=== PATIENT | female | born 1950 | race American Indian/Alaskan Native ===

== ENCOUNTER 2017-08-21 20:33 | Observation (INO) | payer MEDICAID, MEDICARE ==
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
[2017-08-22 06:15] VITALS: BP 149/85; PULSE 81; RESP 20; TEMP 97.8
[2017-08-22 06:38] VITALS: O2SAT 97
== END 2017-08-22 05:42 | disposition home or self-care (01) ==
LOC: C.ER 20:33 → C.9OBSV 22:53
PROVIDERS: ADMIT Student in an Organized Health Care Education/Training Program; ATTEND Student in an Organized Health Care Education/Training Program
DX: F10.10 Alcohol abuse, uncomplicated (principal); F17.210 Nicotine dependence, cigarettes, uncomplicated; Y09 Assault by unspecified means
CPT/HCPCS: 70450; 99285; G0378

== ENCOUNTER 2018-01-03 17:37 | Emergency (ER) | payer MEDICAID ==
[2018-01-03 19:18] VITALS: TEMP 97.8
[2018-01-03] MEDS ORDERED: Sodium Chloride 0.9% 1,000 ML IV ONE (21:44)
[2018-01-03 22:39] LABS: BASO # 0.1 K/uL (0.0-0.2); EOS # 0.1 K/uL (0.0-0.7); EOS % 1.3 % (0.0-4.0); HEMOGLOBIN 14.2 g/dL (11.0-16.0); LYMPH # 2.9 K/uL (1.0-4.3); LYMPH % 41.3 % (20.0-40.0); MEAN CELL VOLUME 97.3 fL (81.0-99.0); MEAN CORPUSCULAR HEMOGLOBIN 32.6 pg (27.0-31.0); MEAN CORPUSCULAR HGB CONC 33.5 g/dL (33.0-37.0); MEAN PLATELET VOLUME 9.3 fL (7.2-11.7); MONO # 0.6 K/uL (0.0-0.8); MONO % 8.5 % (0.0-10.0); NEUT # 3.3 K/uL (1.8-7.0); NEUT % 47.9 % (50.0-75.0); NRBC % 0.1 % (0.0-2.0); RBC 4.36 Mil/uL (3.80-5.20); RED CELL DISTRIBUTION WIDTH 12.4 % (11.5-14.5)
[2018-01-03 22:51] LABS: ALB/GLOB RATIO 0.9 (1.0-2.1); ALBUMIN 3.9 g/dL (3.5-5.0); ALT/SGPT 50 U/L (9-52); AST/SGOT 52 U/L (14-36); BLOOD UREA NITROGEN 16 mg/dL (7-17); CALCIUM 9.7 mg/dl (8.6-10.4); GFR AFRICAN-AMERICAN > 60; GFR NON-AFRICAN AMERICAN > 60; MAGNESIUM 1.8 mg/dL (1.6-2.3)
--- NOTE | 2018-01-04 00:24 | C.PDOC ---
Time Seen by Provider: 01/03/18 21:08 Chief Complaint (Nursing): Medical Clearance History Per: Patient Onset/Duration Of Symptoms: Days Current Symptoms Are (Timing): Still Present Severity: Moderate Context: Recently diagnosed with influenza Location: Generalized Quality: Malaise/bodyache Reports Recently: Treated By A Physician, Hospitalized Additional History Per: Prior Records Past Medical History Reviewed: Historical Data, Nursing Documentation, Vital Signs Vital Signs: Last Vital Signs Temp 97.8 F 01/03/18 19:14 Pulse 90 01/03/18 19:14 Resp 18 01/03/18 19:14 BP 139/96 H 01/03/18 19:14 Pulse Ox 96 01/03/18 19:14 - Medical History PMH: HTN Family History: States: Unknown Family Hx - Social History Hx Tobacco Use: Yes (Light smoker <10 cigarettes daily) Hx Alcohol Use: Yes Hx Substance Use: No - Immunization History Hx Tetanus Toxoid Vaccination: No Hx Influenza Vaccination: No Hx Pneumococcal Vaccination: No Review Of Systems Except As Marked, All Systems Reviewed And Found Negative. Constitutional: Positive for: Malaise. Negative for: Fever Cardiovascular: Negative for: Chest Pain Respiratory: Negative for: Cough, Shortness of Breath, Hemoptysis Gastrointestinal: Negative for: Vomiting, Abdominal Pain, Diarrhea Genitourinary: Negative for: Dysuria Musculoskeletal: Negative for: Neck Pain Skin: Negative for: Rash Neurological: Negative for: Weakness, Numbness, Seizures, Altered Mental Status Physical Exam - Physical Exam Appears: Non-toxic, No Acute Distress Skin: Normal Color, Warm, Dry, No Rash Head: Atraumatic, Normacephalic Eye(s): bilateral: PERRL, EOMI Oral Mucosa: Moist Neck: Normal ROM, Supple Cardiovascular: Rhythm Regular Respiratory: Normal Breath Sounds, No Accessory Muscle Use Gastrointestinal/Abdominal: Soft, No Tenderness Extremity: Normal ROM, No Pedal Edema, No Calf Tenderness Neurological/Psych: Oriented x3, Normal Motor, Normal Sensation ED Course And Treatment - Laboratory Results Result Diagrams: 01/03/18 22:34 01/03/18 22:34 O2 Sat by Pulse Oximetry: 96 Pulse Ox Interpretation: Normal Progress - Interventions Interventions:: Observation, Intravenous fluid - Medications Administered Intravenous: NSAID - Data Reviewed Data Reviewed: Lab, Old records - Patient Status Patient status: Mostly improved - Continuity of Care Discussed patient case with:: Patient, ED Nurse - Patient Plan Patient Plan: Discharge, F/U with PCP, Continue present meds Disposition Counseled Patient/Family Regarding: Studies Performed, Diagnosis, Need For Followup, Smoking Cessation - Disposition Referrals: Milton Aranda MD [Primary Care Provider] - Disposition: HOME/ ROUTINE Disposition Time: 00:25 Condition: IMPROVED Additional Instructions: Follow up with your doctor this week. Return to the ER if you develop high fever , shortness of breath, worsening of symptoms or if you have any other concerns. Forms: [facility] (French), General Discharge Instructions - Clinical Impression Clinical Impression: Body aches
[2018-01-04 02:18] VITALS: BP 127/63; PULSE 78; RESP 20; O2SAT 100
== END 2018-01-04 01:25 | disposition home or self-care (01) ==
LOC: C.ER 17:37 → SUPCPDRO 17:37 → C.ER 01-04 01:25
DX: R52 Pain, unspecified (principal)
CPT/HCPCS: 80053; 80320; 83735; 85025; 96361; 96374; 99282; J1885; J7040

== ENCOUNTER 2018-01-08 09:57 | Emergency (ER) | payer MEDICAID ==
[2018-01-08 10:10] VITALS: RESP 18
[2018-01-08] MEDS ORDERED: Sodium Chloride 0.9% 1,000 ML IV ONE (10:28)
--- NOTE | 2018-01-08 10:46 | C.PDOC ---
History Of Present Illness 67 year old female presents to ED stating she feels weak and she is having frequent falls. She states she fell at home twice and fell in the bath tub this morning. Patient complains of lower back pain. Denies head trauma, LOC, alcohol , drug use or dizziness prior to fall. Patient states she was seen at medical center yesterday and was discharged, but states " I feel like they discharged me too early." She also states she is afraid of being home alone and would like to stay in the hospital. Time Seen by Provider: 01/08/18 10:17 Chief Complaint (Nursing): Weakness/Neurological Deficit History Per: Patient History/Exam Limitations: no limitations Onset/Duration Of Symptoms: Hrs Current Symptoms Are (Timing): Still Present Recent travel outside of the [place]: No Past Medical History Reviewed: Historical Data, Nursing Documentation, Vital Signs Vital Signs: Last Vital Signs Temp 98.6 F 01/08/18 15:05 Pulse 90 01/08/18 15:05 Resp 18 01/08/18 15:05 BP 142/90 01/08/18 15:05 Pulse Ox 100 01/08/18 15:05 - Medical History PMH: HTN Surgical History: No Surg Hx Family History: States: Unknown Family Hx - Social History Hx Tobacco Use: Yes (Light smoker <10 cigarettes daily) Hx Alcohol Use: Yes Hx Substance Use: No - Immunization History Hx Tetanus Toxoid Vaccination: No Hx Influenza Vaccination: No Hx Pneumococcal Vaccination: No Review Of Systems Constitutional: Positive for: Weakness, Other (frequent falls). Negative for: Fever, Chills Cardiovascular: Negative for: Chest Pain, Palpitations Respiratory: Negative for: Cough, Shortness of Breath Gastrointestinal: Negative for: Nausea, Vomiting, Abdominal Pain, Diarrhea Musculoskeletal: Positive for: Back Pain (lower back). Negative for: Other ( Head trauma) Neurological: Positive for: Other (No LOC ). Negative for: Weakness, Numbness, Dizziness Physical Exam - Physical Exam Appears: Non-toxic, No Acute Distress, Chronically Ill, Other (thin habitus) Skin: Normal Color, Warm, Dry Head: Atraumatic, Normacephalic, No Tenderness, No Swelling Eye(s): bilateral: Normal Inspection, PERRL, EOMI Nose: Normal Oral Mucosa: Moist Lips: Other (Dry) Teeth: Other (poor dentition) Neck: Normal ROM, Supple Chest: Symmetrical, No Tenderness Cardiovascular: Rhythm Regular, No Murmur Respiratory: Normal Breath Sounds, No Decreased Breath Sounds, No Rales, No Rhonchi, No Wheezing Gastrointestinal/Abdominal: Soft, No Tenderness Back: Normal Inspection, No CVA Tenderness, No Vertebral Tenderness, Paraspinal Tenderness (minimal lumbar) Extremity: Normal ROM, No Tenderness, No Pedal Edema, No Deformity, No Swelling Neurological/Psych: Oriented x3, Normal Speech Gait: Unable To Assess ED Course And Treatment - Laboratory Results Result Diagrams: 01/08/18 11:53 01/08/18 11:53 Lab Interpretation: No Acute Changes ECG: Interpreted By Me, Viewed By Me ECG Rhythm: Sinus Tachycardia ECG Interpretation: No Acute Changes Rate From EC O2 Sat by Pulse Oximetry: 96 (RA) Pulse Ox Interpretation: Normal - Other Rad CXR X-Ray: Viewed By Me, Read By Radiologist Interpretation: HISTORY: weakness. COMPARISON: No prior. TECHNIQUE: Chest PA and lateral. FINDINGS: LUNGS: No active pulmonary disease. PLEURA: No significant pleural effusion identified. No pneumothorax apparent. CARDIOVASCULAR: Normal. OSSEOUS STRUCTURES: No significant abnormalities. VISUALIZED UPPER ABDOMEN: Normal. OTHER FINDINGS: None. IMPRESSION: No active disease. Lumbar Spine X-Ray X-Ray: Viewed By Me, Read By Radiologist Interpretation: PROCEDURE: Radiographs of the Lumbar Spine. HISTORY: pain s.p fall. COMPARISON: No prior. FINDINGS: BONES: Somewhat limited study due to patient rotation. Diffuse osteopenia is noted. No definite evidence of significant compression deformity. DISC SPACES: Moderate degenerative changes more prominent at L4-L5 and L5-S1. OTHER FINDINGS: None. IMPRESSION: Limited study due to patient rotation. Osteopenia. No definite evidence of acute compression fracture or subluxation. Moderate degenerative changes. - CT Scan/US Head CT Other Rad Studies (CT/US): Read By Radiologist, Radiology Report Reviewed CT/US Interpretation: PROCEDURE: CT HEAD WITHOUT CONTRAST. HISTORY: reports weakness, falls. COMPARISON: Comparison is made with 08/21/2017. TECHNIQUE: Axial computed tomography images were obtained through the head/brain without intravenous contrast. Radiation dose: Total exam DLP = 909.35 mGy-cm. This CT exam was performed using one or more of the following dose reduction techniques: Automated exposure control, adjustment of the mA and/or kV according to patient size, and/or use of iterative reconstruction technique. FINDINGS: HEMORRHAGE: No intracranial hemorrhage. BRAIN: No mass effect or edema. [id number] atrophy is again noted. VENTRICLES: Unremarkable. No hydrocephalus. CALVARIUM: Unremarkable. PARANASAL SINUSES: Unremarkable as visualized. No significant inflammatory changes. MASTOID AIR CELLS: Unremarkable as visualized. No inflammatory changes. OTHER FINDINGS: None. IMPRESSION: No evidence of acute intracranial hemorrhage or significant interval change compared to the previous exam. Medical Decision Making Medical Decision Making: Ordered CT head, EKG, blood work, CXR, X-Ray LS spine, and urinalysis. Administered IV fluids. Diagnostics reviewed with no acute abnormalities. Patient reevaluated and reports she has pain and feels unchanged. Toradol IV ordered. Patient insists on calling her doctor [id number] Aranda who is familiar with patient, he states she was just discharged from [facility]. Patient does not require admission. Patient can be discharged and follow up in office. Patient was informed. Transportation was arranged for patient to get home safe. Patient remained in ER awaiting transport. She was given food to eat and remained in no distress. Patient stable for discharge Disposition Counseled Patient/Family Regarding: Need For Followup, Rx Given - Disposition Referrals: Milton Aranda MD [Staff Provider] - Disposition: HOME/ ROUTINE Disposition Time: 13:39 Condition: GOOD Additional Instructions: Follow up with your primary medical doctor or clinic in 2-5 days for further evaluation. Return to the emergency department at any time if symptoms persist or worsen. Instructions: Joint Pain Forms: [facility] (Latvian) - POA Present On Arrival: None - Clinical Impression Clinical Impression: Arthralgia, Fall at home - PA / OPERATOR / Resident Statement MD/DO has reviewed & agrees with the documentation as recorded. - Scribe Statement The provider has reviewed the documentation as recorded by the Renita Eaton All medical record entries made by the Jenaroibgrant were at my direction and personally dictated by me. I have reviewed the chart and agree that the record accurately reflects my personal performance of the history, physical exam, medical decision making, and the department course for this patient. I have also personally directed, reviewed, and agree with the discharge instructions and disposition.
--- NOTE | 2018-01-08 10:52 | RAD ---
PROCEDURE: Radiographs of the Lumbar Spine. HISTORY: pain s.p fall COMPARISON: No prior. FINDINGS: BONES: Somewhat limited study due to patient rotation. Diffuse osteopenia is noted. No definite evidence of significant compression deformity. DISC SPACES: Moderate degenerative changes more prominent at L4-L5 and L5-S1. OTHER FINDINGS: None. IMPRESSION: Limited study due to patient rotation. Osteopenia. No definite evidence of acute compression fracture or subluxation. Moderate degenerative changes.
--- NOTE | 2018-01-08 10:53 | RAD ---
HISTORY: weakness COMPARISON: No prior. TECHNIQUE: Chest PA and lateral FINDINGS: LUNGS: No active pulmonary disease. PLEURA: No significant pleural effusion identified. No pneumothorax apparent. CARDIOVASCULAR: Normal. OSSEOUS STRUCTURES: No significant abnormalities. VISUALIZED UPPER ABDOMEN: Normal. OTHER FINDINGS: None. IMPRESSION: No active disease.
--- NOTE | 2018-01-08 11:01 | CT ---
PROCEDURE: CT HEAD WITHOUT CONTRAST. HISTORY: reports weakness, falls COMPARISON: Comparison is made with 08/21/2017 TECHNIQUE: Axial computed tomography images were obtained through the head/brain without intravenous contrast. Radiation dose: Total exam DLP = 909.35 mGy-cm. This CT exam was performed using one or more of the following dose reduction techniques: Automated exposure control, adjustment of the mA and/or kV according to patient size, and/or use of iterative reconstruction technique. FINDINGS: HEMORRHAGE: No intracranial hemorrhage. BRAIN: No mass effect or edema. Uhhu-aa-vznzaxga atrophy is again noted. VENTRICLES: Unremarkable. No hydrocephalus. CALVARIUM: Unremarkable. PARANASAL SINUSES: Unremarkable as visualized. No significant inflammatory changes. MASTOID AIR CELLS: Unremarkable as visualized. No inflammatory changes. OTHER FINDINGS: None. IMPRESSION: No evidence of acute intracranial hemorrhage or significant interval change compared to the previous exam.
[2018-01-08] MEDS ORDERED: Sodium Chloride 0.9% 1,000 ML ONE (11:25)
[2018-01-08 11:58] LABS: BASO % 0.4 % (0.0-2.0); EOS % 0.3 % (0.0-4.0); HEMOGLOBIN 14.1 g/dL (11.0-16.0); LYMPH # 1.3 K/uL (1.0-4.3); MEAN CELL VOLUME 96.5 fL (81.0-99.0); MEAN CORPUSCULAR HEMOGLOBIN 33.1 pg (27.0-31.0); MEAN CORPUSCULAR HGB CONC 34.2 g/dL (33.0-37.0); MEAN PLATELET VOLUME 10.2 fL (7.2-11.7); MONO # 0.3 K/uL (0.0-0.8); MONO % 3.7 % (0.0-10.0); NEUT # 7.7 K/uL (1.8-7.0); NEUT % 81.6 % (50.0-75.0); RBC 4.28 Mil/uL (3.80-5.20); RED CELL DISTRIBUTION WIDTH 12.2 % (11.5-14.5); WHITE BLOOD COUNT 9.4 K/uL (4.8-10.8)
[2018-01-08 12:15] LABS: ALB/GLOB RATIO 0.9 (1.0-2.1); ALBUMIN 4.2 g/dL (3.5-5.0); ALT/SGPT 55 U/L (9-52); AST/SGOT 67 U/L (14-36); BLOOD UREA NITROGEN 17 mg/dL (7-17); CALCIUM 9.5 mg/dl (8.6-10.4); GFR AFRICAN-AMERICAN > 60; GFR NON-AFRICAN AMERICAN > 60
[2018-01-08 12:22] LABS: B-TYPE NATRIURETIC PEPTIDE 81.9 pg/mL (0-900)
[2018-01-08 13:17] LABS: SQUAMOUS EPITHIAL 2 /hpf (0-5); URINE BACTERIA RARE (<OCC); URINE BILIRUBIN NEGATIVE (NEGATIVE); URINE BLOOD 1+ (NEGATIVE); URINE CLARITY Hazy (Clear); URINE COLOR Yellow (YELLOW); URINE GLUCOSE (UA) NORMAL (Normal); URINE LEUKOCYTE ESTERASE 2+ Leu/uL (Negative); URINE NITRATE NEGATIVE (NEGATIVE); URINE PROTEIN NEGATIVE (NEGATIVE)
[2018-01-08 13:44] LABS: BARBITURATES, UR NEGATIVE (NEGATIVE); OPIATES, UR NEGATIVE (NEGATIVE); PHENCYCLIDINE, UR NEGATIVE (NEGATIVE)
[2018-01-08 14:11] LABS: BENZODIAZEPINES, UR POSITIVE (NEGATIVE)
[2018-01-08 15:05] VITALS: BP 142/90; PULSE 90; TEMP 98.6
[2018-01-09 12:21] VITALS: O2SAT 96
== END 2018-01-08 17:19 | disposition home or self-care (01) ==
LOC: C.ER 09:57
DX: M54.5 Low back pain (principal); W18.2XXA Fall in (into) shower or empty bathtub, initial encounter; Z91.81 History of falling; Y93.E1 Activity, personal bathing and showering; Y92.002 Bathroom of unspecified non-institutional (private) residence as the place of occurrence of the external cause; I10 Essential (primary) hypertension; F17.210 Nicotine dependence, cigarettes, uncomplicated
CPT/HCPCS: 70450; 71046; 72100; 80053; 80320; 80324; 80345; 80346; 80349; 80353; 80358; 80361; 81001; 82948; 83880; 83992; 85025; 96361; 96374; 99285; J1885; J7040

== ENCOUNTER 2018-01-20 15:09 | Emergency (ER) | payer MEDICAID ==
--- NOTE | 2018-01-20 17:30 | C.PDOC ---
History Of Present Illness 67-year-old female presents to ED stating she feels weak and she is having frequent falls. She states she fell at home three times today. Patient complains of lower back pain and generalized abdominal pain. Denies head trauma , LOC, alcohol, drug use or dizziness prior to fall. Patient states she was seen at medical center recently and was discharged, but states "I feel like they discharged me too early." She also states she is afraid of being home alone. Time Seen by Provider: 01/20/18 16:05 Chief Complaint (Nursing): Back Pain History Per: Patient History/Exam Limitations: no limitations Onset/Duration Of Symptoms: Days Current Symptoms Are (Timing): Still Present Past Medical History Reviewed: Historical Data, Nursing Documentation, Vital Signs Vital Signs: Last Vital Signs Temp 98.0 F 01/20/18 18:29 Pulse 80 01/20/18 18:29 Resp 16 01/20/18 18:29 BP 110/75 01/20/18 18:29 Pulse Ox 99 01/20/18 18:29 - Medical History PMH: HTN Family History: States: No Known Family Hx - Social History Hx Tobacco Use: Yes (Light smoker <10 cigarettes daily) Hx Alcohol Use: Yes Hx Substance Use: No - Immunization History Hx Tetanus Toxoid Vaccination: No Hx Influenza Vaccination: No Hx Pneumococcal Vaccination: No Review Of Systems Constitutional: Positive for: Weakness. Negative for: Fever, Chills Cardiovascular: Negative for: Chest Pain, Palpitations Respiratory: Negative for: Shortness of Breath Gastrointestinal: Positive for: Abdominal Pain. Negative for: Vomiting Genitourinary: Negative for: Dysuria, Frequency Musculoskeletal: Positive for: Back Pain. Negative for: Neck Pain Skin: Negative for: Rash Neurological: Negative for: Numbness, Incoordination, Change in Speech, Confusion, Altered Mental Status, Headache, Dizziness Physical Exam - Physical Exam Appears: Non-toxic, Chronically Ill (Thin) Skin: Warm, Dry, No Rash Head: Atraumatic, Normacephalic Eye(s): bilateral: Normal Inspection, PERRL, EOMI Nose: Normal Oral Mucosa: Moist Lips: Normal Appearing Throat: No Erythema, No Exudate Neck: Normal ROM, Supple Chest: Symmetrical Cardiovascular: Rhythm Regular, No Friction Rub, No Murmur Respiratory: Normal Breath Sounds, No Accessory Muscle Use Gastrointestinal/Abdominal: Soft, No Tenderness Back: Normal Inspection, No CVA Tenderness Extremity: Normal ROM, No Deformity, No Swelling Pulses: Left Radial: Normal, Right Radial: Normal, Left Dorsalis Pedis: Normal, Right Dorsalis Pedis: Normal Neurological/Psych: Oriented x3, Normal Speech, Normal Motor, Normal Sensation Gait: Steady ED Course And Treatment O2 Sat by Pulse Oximetry: 98 (RA) Pulse Ox Interpretation: Normal - Radiology CXR: Interpreted by Me, Viewed By Me CXR Interpretation: Yes: No Acute Disease. No: Infiltrates, Cardiomegaly, Pnemothorax Medical Decision Making Medical Decision Making: Plan: * Chest X-Ray * Reassess and Disposition Prior Visits Notes and records from previous visits were reviewed. Patient was seen and evaluated in the ED for same complaint on 01/08/18; Labs and imaging (XR/CT) ordered and reviewed as negative for acute findings. Case was discussed with Dr Aranda, who recommended discharge home for office f/u as the patient was seen at [facility] for similar symptoms 2 days ago. Disposition - Disposition Referrals: Milton Aranda MD [Staff Provider] - Disposition: HOME/ ROUTINE Disposition Time: 18:14 Condition: GOOD Additional Instructions: Follow up with the medical doctor within 1-2 days. Return if worsened. Instructions: Fatigue (DC) Forms: [facility] (Setswana) - POA Present On Arrival: None - Clinical Impression Clinical Impression: Fall at home, Malingering - Scribe Statement The provider has reviewed the documentation as recorded by the Scribe (Jennifer Welch) All medical record entries made by the Scribe were at my direction and personally dictated by me. I have reviewed the chart and agree that the record accurately reflects my personal performance of the history, physical exam, medical decision making, and the department course for this patient. I have also personally directed, reviewed, and agree with the discharge instructions and disposition.
[2018-01-20 18:30] VITALS: BP 110/75; PULSE 80; RESP 16; TEMP 98
[2018-01-20 18:50] VITALS: O2SAT 98
--- NOTE | 2018-01-21 07:44 | RAD ---
Chest x-ray single frontal view History: Fall. Comparison: 01/08/2018 Findings: Biapical pleural thickening with upper lobe granulomatous changes. No focal infiltrate or effusion. Bibasilar breast and nipple shadows. Heart size within normal limits. Degenerative changes in the spine. Impression: No focal infiltrate or effusion.
== END 2018-01-20 19:35 | disposition home or self-care (01) ==
LOC: C.ER 15:09
DX: Z76.5 Malingerer [conscious simulation] (principal); W19.XXXA Unspecified fall, initial encounter; Y92.009 Unspecified place in unspecified non-institutional (private) residence as the place of occurrence of the external cause

== ENCOUNTER 2018-02-06 16:01 | Emergency (ER) | payer MEDICAID ==
[2018-02-06 16:21] VITALS: BP 151/90; PULSE 110; RESP 18; TEMP 97.6; O2SAT 100
[2018-02-06 16:50] LABS: SQUAMOUS EPITHIAL 5 /hpf (0-5); URINE BACTERIA OCC (<OCC); URINE BILIRUBIN NEGATIVE (NEGATIVE); URINE BLOOD 1+ (NEGATIVE); URINE CLARITY Clear (Clear); URINE COLOR Straw (YELLOW); URINE GLUCOSE (UA) NORMAL (Normal); URINE LEUKOCYTE ESTERASE 1+ Leu/uL (Negative); URINE PROTEIN NEGATIVE (NEGATIVE)
--- NOTE | 2018-02-06 16:54 | C.PDOC ---
History Of Present Illness 67 yo female w/PMHx of chronic lower back pain presents to ED for evaluation of back pain. Pt admits, hx of frequent fall, " always have back pain". Pt admits, taking percocet given by , was seen yesterday at [facility] due to same complaints- lower back pain. Otherwise, pt denies recent fall/trauma/injury, denies head trauma, LOC, dizziness, vertigo, visual changes, focal deficits, neck pain, CP, SOB, dyspnea , diaphoresis, palpitation, abd. pain, V/D, UTi sx, incontinence, saddle anesthesia, denies new weakness, sensory or vascular deficits to B/L LEs. Pt is asking " who is going to bring me home?" Ambulatory in Ed with baseline gait, not in any apparent distress., Time Seen by Provider: 02/06/18 16:08 Chief Complaint (Nursing): Back Pain History Per: Patient Onset/Duration Of Symptoms: Intermittent Episodes Past Medical History Reviewed: Historical Data, Nursing Documentation, Vital Signs Vital Signs: Last Vital Signs Temp 97.6 F 02/06/18 16:05 Pulse 110 H 02/06/18 16:05 Resp 18 02/06/18 16:05 BP 151/90 H 02/06/18 16:05 Pulse Ox 100 02/06/18 16:55 - Medical History PMH: HTN Family History: States: Unknown Family Hx - Social History Hx Tobacco Use: Yes (Light smoker <10 cigarettes daily) Hx Alcohol Use: Yes Hx Substance Use: No (on methadone) - Immunization History Hx Tetanus Toxoid Vaccination: No Hx Influenza Vaccination: No Hx Pneumococcal Vaccination: No Review Of Systems Except As Marked, All Systems Reviewed And Found Negative. Constitutional: Negative for: Fever, Chills Eyes: Negative for: Vision Change ENT: Negative for: Ear Discharge, Nose Discharge, Throat Pain, Throat Swelling Cardiovascular: Negative for: Chest Pain, Palpitations, Edema, Light Headedness Respiratory: Negative for: Cough, Shortness of Breath, Wheezing Gastrointestinal: Negative for: Nausea, Vomiting, Abdominal Pain, Diarrhea Genitourinary: Negative for: Dysuria, Incontinence Musculoskeletal: Positive for: Back Pain. Negative for: Neck Pain Skin: Negative for: Rash Neurological: Negative for: Weakness, Numbness, Altered Mental Status, Headache , Dizziness ED Course And Treatment O2 Sat by Pulse Oximetry: 100 Pulse Ox Interpretation: Normal Progress Note: On re-evaluation, pt is afebrile, hemodynamicaly stable. Non- toxic. Ambulatory in ED with baseline gait. Neck: Supple, (-) JVD, (-) carotid bruits B/L. Lungs: CTA B/L, BS equal B/L. Abd: benign, (-) guarding, ( -) rebound. back: (-) CVA tenderness. Neurologicaly intact. records from previous multiple visits to ED review with same complaints. Pt was seen here in ED on 01/04/18, 01/08/18, 01/20/18 when blood work and imaging of head and L-spine performed without acute findings. Pt admits, also was seen at [facility] where had imaging including MRI of L-spine without acute findings. Pt admits taking percocet at home, " now need to go to PM". Pt has clinical findings c/w chronic lower back pain. Pt advised. ref. to f/u with PMD, PM in2 -3 days for re-eval. Return to ED if any worsening or new changes. Disposition Counseled Patient/Family Regarding: Studies Performed, Diagnosis, Need For Followup, Rx Given - Disposition Referrals: Milton Aranda MD [Staff Provider] - Disposition: HOME/ ROUTINE Disposition Time: 16:46 Condition: STABLE Prescriptions: Nitrofurantoin Macrocrystals [Macrobid] 1 cap PO BID #14 cap Instructions: Low Back Pain (DC), Urinary Tract Infections in Adults Forms: [facility] (Colombian) - Clinical Impression Clinical Impression: Chronic lower back pain, UTI (urinary tract infection)
== END 2018-02-06 17:11 | disposition home or self-care (01) ==
LOC: C.ER 16:01
DX: M54.5 Low back pain (principal); N39.0 Urinary tract infection, site not specified

== ENCOUNTER 2018-02-25 15:28 | Emergency (ER) | payer MEDICAID ==
[2018-02-25 15:38] VITALS: BP 109/75; PULSE 100; TEMP 98.1; O2SAT 100
--- NOTE | 2018-02-25 16:10 | C.PDOC ---
History Of Present Illness 67 year old female with history of frequent falls presents to the ED c/o back pain. Patient was seen at [facility] recently for the same complaints and was D/C with prescriptions for Gabapentin and Naproxen on 02/22, which she still has not started to take. Patient still c/o back pain and is not taking any meds for pain. denies any new falls. Patient has an appt with pain management on 03/17. Patient denies weakness, numbness, urinary/bowel incontinence, saddle anesthesia. no new falls, no fever or chills. pt has cane and walker at home to use for assistance. Time Seen by Provider: 02/25/18 15:42 Chief Complaint (Nursing): Back Pain History Per: Patient History/Exam Limitations: no limitations Onset/Duration Of Symptoms: Days Current Symptoms Are (Timing): Still Present Quality Of Discomfort: "Pain" Previous Symptoms: Back Pain Associated Symptoms: None Exacerbating Factor(s): Nothing Recent travel outside of the [place]: No Additional History Per: Patient Past Medical History Reviewed: Historical Data, Nursing Documentation, Vital Signs Vital Signs: Last Vital Signs Temp 98.1 F 02/25/18 15:35 Pulse 100 H 02/25/18 15:35 Resp 20 02/25/18 16:44 BP 109/75 02/25/18 15:35 Pulse Ox 100 02/25/18 16:39 - Medical History PMH: HTN Surgical History: No Surg Hx Family History: States: Unknown Family Hx - Social History Hx Tobacco Use: Yes (Light smoker <10 cigarettes daily) Hx Alcohol Use: Yes Hx Substance Use: No - Immunization History Hx Tetanus Toxoid Vaccination: No Hx Influenza Vaccination: No Hx Pneumococcal Vaccination: No Review Of Systems Constitutional: Negative for: Fever, Chills Cardiovascular: Negative for: Chest Pain Respiratory: Negative for: Shortness of Breath Gastrointestinal: Negative for: Abdominal Pain Genitourinary: Negative for: Incontinence Musculoskeletal: Positive for: Back Pain Skin: Negative for: Rash Neurological: Negative for: Weakness, Numbness Physical Exam - Physical Exam Appears: Non-toxic, No Acute Distress, Unkempt, Other (cachetic, thin) Skin: Normal Color, Warm, Dry Head: Atraumatic, Normacephalic Gastrointestinal/Abdominal: Soft, No Tenderness, No Guarding, No Rebound Back: No Vertebral Tenderness, Other (right sciatic lumbar tenderness) Extremity: Normal ROM, No Tenderness, Capillary Refill (< 2 seconds), No Swelling Pulses: Left Dorsalis Pedis: Normal, Right Dorsalis Pedis: Normal Neurological/Psych: Oriented x3, Normal Speech, Normal Cognition, Normal Sensation, Normal Reflexes Gait: Steady ED Course And Treatment O2 Sat by Pulse Oximetry: 100 (ON RA) Pulse Ox Interpretation: Normal Medical Decision Making Medical Decision Making: Impression: back pain Plan: * Toradol 15 mg IM Discussed case with Dr. Aranda who agrees with plan, reports he has referred the patient for PT for help with symptoms. Patient states she has a walker at home to help her ambulate. Patient will be D/C home. Disposition Discussed With .: Milton Aranda Doctor Will See Patient In The: Office Counseled Patient/Family Regarding: Need For Followup - Disposition Referrals: Milton Aranda MD [Staff Provider] - Disposition: HOME/ ROUTINE Disposition Time: 16:37 Condition: GOOD Additional Instructions: Please follow up with Dr Aranda next week and with your pain management appointment (already scheduled) on 03/17. Please take Gabapentin and Nproxen that have been prescribed for you. Use walker for stability when on your feet. Instructions: Low Back Pain (DC) Forms: [facility] (Nicaraguan), General Discharge Instructions - Clinical Impression Clinical Impression: Low back pain - PA / ATG ARCHITECT / Resident Statement MD/DO has reviewed & agrees with the documentation as recorded. - Scribe Statement The provider has reviewed the documentation as recorded by the Scribe Chan Gillette All medical record entries made by the Scribe were at my direction and personally dictated by me. I have reviewed the chart and agree that the record accurately reflects my personal performance of the history, physical exam, medical decision making, and the department course for this patient. I have also personally directed, reviewed, and agree with the discharge instructions and disposition.
[2018-02-25 16:46] VITALS: RESP 20
== END 2018-02-25 16:44 | disposition home or self-care (01) ==
LOC: C.ER 15:28
DX: M54.5 Low back pain (principal)
CPT/HCPCS: 96372; 99282; J1885

== ENCOUNTER 2018-03-09 14:44 | Emergency (ER) | payer MEDICAID ==
[2018-03-09 15:07] VITALS: TEMP 97.5
[2018-03-09] MEDS ORDERED: Naloxone 0.4 mg/ml Inj (Adult) SC ONE (16:00)
[2018-03-09] MEDS ORDERED: Naloxone 0.4 mg/ml Inj (Adult) IV ONE ×3 (16:00→16:18)
[2018-03-09] MEDS ORDERED: Naloxone 0.4 mg/ml Inj (Adult) ONE ×3 (16:07→17:01)
[2018-03-09] MEDS ORDERED: Naloxone 0.4 mg/ml Inj (Adult) IVP ONE ×2 (16:08→16:13)
--- NOTE | 2018-03-09 16:14 | C.PDOC ---
History Of Present Illness LIMTED DUE TO CLIN COND POSSIBLE NARCOTIC OVERDOSE. MULT PRIOR ER VISITS FOR FREQ FALL AND CHRONIC PAIN. PT UNCOOPERATIVE W EXAM DUE TO INTOX ROS UTO EXAM MOD DIST HEENT ATRAUM PINPOINT +GAG NEURO SOMNALENT, FOCAL RESPONSE TO STERNAL RUB W IMMEDIATE RETURN TO SLEEP. EXT ATRAUM AROM W PAIN STIM SKIN WARM DRY CV RRR Time Seen by Provider: 03/09/18 15:49 Chief Complaint (Nursing): Lower Extremity Problem/Injury History/Exam Limitations: clinical condition Past Medical History Reviewed: Historical Data, Nursing Documentation, Vital Signs Vital Signs: Last Vital Signs Temp 97.5 F L 03/09/18 15:03 Pulse 96 H 03/09/18 15:03 Resp 18 03/09/18 15:03 BP 133/92 H 03/09/18 15:03 Pulse Ox 99 03/09/18 17:32 - Medical History PMH: HTN Family History: States: No Known Family Hx - Social History Hx Tobacco Use: Yes (Light smoker <10 cigarettes daily) Hx Alcohol Use: Yes Hx Substance Use: No - Immunization History Hx Tetanus Toxoid Vaccination: No Hx Influenza Vaccination: No Hx Pneumococcal Vaccination: No Review Of Systems Review Of Systems: ROS cannot be obtained secondary to pt's inabilty to answer questions. Physical Exam - Physical Exam Appears: Non-toxic, No Acute Distress Skin: Warm, Dry, No Rash Head: Normacephalic Eye(s): bilateral: PERRL Nose: Normal Oral Mucosa: Moist Lips: Normal Appearing Throat: Other (+GAG) Neck: Normal ROM Chest: Symmetrical Cardiovascular: Rhythm Regular, No Murmur Respiratory: Normal Breath Sounds, No Accessory Muscle Use Extremity: Other (ATRAUM AROM W PAIN STIM) Neurological/Psych: Other (SOMNALENT, FOCAL RESPONSE TO STERNAL RUB W IMMEDIATE RETURN TO SLEEP. ) ED Course And Treatment - Laboratory Results Result Diagrams: 03/09/18 16:59 03/09/18 16:59 O2 Sat by Pulse Oximetry: 99 (RA) Pulse Ox Interpretation: Normal Progress - Re-Evaluation Re-evaluation Note: 03/09/18 16:14 SP NARCAN 2 MG W MOD RESPONSE 03/09/18 16:25 S/P REPEAT NARCAN NO RESPONSE 03/09/18 17:07 d/w dr nuñez aware of er findings 03/09/18 18:22 AO3, NO S/S ACUTE INTOX. AMBUL W CANE WO DIFF - Data Reviewed Data Reviewed: Lab, Old records Disposition Counseled Patient/Family Regarding: Diagnosis, Need For Followup - Disposition Referrals: Milton Nuñez MD [Staff Provider] - Disposition: HOME/ ROUTINE Disposition Time: 18:23 Condition: IMPROVED Instructions: Narcotic Overdose (DC) Forms: [employer] (Kiswahili) - Clinical Impression Clinical Impression: Chronic lower back pain, Narcotic overdose - Scribe Statement The provider has reviewed the documentation as recorded by the Scribe (Radha Welch) All medical record entries made by the Scribe were at my direction and personally dictated by me. I have reviewed the chart and agree that the record accurately reflects my personal performance of the history, physical exam, medical decision making, and the department course for this patient. I have also personally directed, reviewed, and agree with the discharge instructions and disposition.
[2018-03-09] MEDS ORDERED: Naloxone 0.4 mg/ml Inj (Adult) IV STA (16:32)
[2018-03-09 17:09] LABS: BASO # 0.1 K/uL (0.0-0.2); BASO % 1.5 % (0.0-2.0); EOS % 0.6 % (0.0-4.0); HEMOGLOBIN 13.9 g/dL (11.0-16.0); LYMPH # 2.1 K/uL (1.0-4.3); LYMPH % 32.7 % (20.0-40.0); MEAN CELL VOLUME 94.2 fL (81.0-99.0); MEAN CORPUSCULAR HEMOGLOBIN 30.9 pg (27.0-31.0); MEAN CORPUSCULAR HGB CONC 32.9 g/dL (33.0-37.0); MEAN PLATELET VOLUME 9.5 fL (7.2-11.7); MONO # 0.3 K/uL (0.0-0.8); MONO % 4.7 % (0.0-10.0); NEUT # 3.8 K/uL (1.8-7.0); NEUT % 60.5 % (50.0-75.0); NRBC % 0.1 % (0.0-2.0); RBC 4.49 Mil/uL (3.80-5.20); RED CELL DISTRIBUTION WIDTH 13.1 % (11.5-14.5); WHITE BLOOD COUNT 6.3 K/uL (4.8-10.8)
[2018-03-09 17:14] LABS: ABG ALLEN TEST POS; ARTERIAL BLOOD GAS HCO3 28.5 mmol/L (21-28); ARTERIAL BLOOD GAS O2 SAT 98.6 % (95-98); ARTERIAL BLOOD GAS PCO2 38 mm/Hg (35-45); ARTERIAL BLOOD GAS PH 7.48 (7.35-7.45); ARTERIAL BLOOD GAS PO2 94 mm/Hg (80-100); ARTERIAL BLOOD GAS TCO2 29.5 mmol/L (22-28)
[2018-03-09 17:15] LABS: CALCIUM 9.6 mg/dl (8.6-10.4); GFR AFRICAN-AMERICAN > 60; GFR NON-AFRICAN AMERICAN > 60
[2018-03-09 17:16] LABS: BLOOD UREA NITROGEN 10 mg/dL (7-17)
--- NOTE | 2018-03-09 17:41 | CT ---
PROCEDURE: CT HEAD WITHOUT CONTRAST. HISTORY: AMS COMPARISON: 01/08/2018. TECHNIQUE: Axial computed tomography images were obtained through the head/brain without intravenous contrast. Radiation dose: Total exam DLP = 935.55 mGy-cm. This CT exam was performed using one or more of the following dose reduction techniques: Automated exposure control, adjustment of the mA and/or kV according to patient size, and/or use of iterative reconstruction technique. FINDINGS: HEMORRHAGE: No intracranial hemorrhage. BRAIN: Arcos-white matter differentiation is preserved. There is no mass, mass effect or abnormal extra-axial fluid collection. VENTRICLES: There is moderate age-related global parenchymal volume loss and proportionate enlargement of the ventricles and cortical sulci. CALVARIUM: The skull base and calvarium are normal. PARANASAL SINUSES: Predominantly clear. MASTOID AIR CELLS: Predominantly clear. OTHER FINDINGS: None. IMPRESSION: No acute intracranial abnormality.
--- NOTE | 2018-03-09 18:06 | RAD ---
PROCEDURE: CHEST RADIOGRAPH, 1 VIEW HISTORY: AMS COMPARISON: 01/20/2018 FINDINGS: LUNGS: Clear. PLEURA: No pneumothorax or pleural fluid seen. CARDIOVASCULAR: Normal. OSSEOUS STRUCTURES: No significant abnormalities. VISUALIZED UPPER ABDOMEN: Normal. OTHER FINDINGS: None. IMPRESSION: No active disease.
[2018-03-09 18:22] VITALS: BP 124/92; PULSE 80; RESP 20
[2018-03-09 18:24] VITALS: O2SAT 99
[2018-03-09 18:24] LABS: SQUAMOUS EPITHIAL 8 /hpf (0-5); URINE BACTERIA OCC (<OCC); URINE BILIRUBIN NEGATIVE (NEGATIVE); URINE BLOOD 1+ (NEGATIVE); URINE CLARITY Hazy (Clear); URINE COLOR Yellow (YELLOW); URINE GLUCOSE (UA) 1+ mg/dL (Normal); URINE LEUKOCYTE ESTERASE 2+ Leu/uL (Negative); URINE PROTEIN NEGATIVE (NEGATIVE)
[2018-03-09 18:32] LABS: BARBITURATES, UR NEGATIVE (NEGATIVE); BENZODIAZEPINES, UR POSITIVE (NEGATIVE); OPIATES, UR NEGATIVE (NEGATIVE); PHENCYCLIDINE, UR NEGATIVE (NEGATIVE)
== END 2018-03-09 19:21 | disposition home or self-care (01) ==
LOC: C.ER 14:44
DX: T40.601A Poisoning by unspecified narcotics, accidental (unintentional), initial encounter (principal); G89.29 Other chronic pain; M54.5 Low back pain
CPT/HCPCS: 36600; 70450; 71045; 80048; 80324; 80345; 80346; 80349; 80353; 80358; 80361; 81001; 82803; 83992; 85025; 96374; 99285; J2310

== ENCOUNTER 2018-03-17 15:12 | Emergency (ER) | payer MEDICAID, MEDICARE ==
[2018-03-17] MEDS ORDERED: Naloxone 0.4 mg/ml Inj (Adult) ONE (15:38)
[2018-03-17] MEDS ORDERED: Naloxone 0.4 mg/ml Inj (Adult) IVP STA (15:52)
[2018-03-17 15:59] LABS: BASO # 0.1 K/uL (0.0-0.2); BASO % 1.2 % (0.0-2.0); EOS # 0.1 K/uL (0.0-0.7); EOS % 0.7 % (0.0-4.0); LYMPH # 2.6 K/uL (1.0-4.3); LYMPH % 33.3 % (20.0-40.0); MEAN CELL VOLUME 92.2 fL (81.0-99.0); MEAN CORPUSCULAR HEMOGLOBIN 31.5 pg (27.0-31.0); MEAN CORPUSCULAR HGB CONC 34.1 g/dL (33.0-37.0); MEAN PLATELET VOLUME 10.3 fL (7.2-11.7); MONO # 0.5 K/uL (0.0-0.8); MONO % 6.4 % (0.0-10.0); NEUT # 4.6 K/uL (1.8-7.0); NEUT % 58.4 % (50.0-75.0); NRBC % 0.1 % (0.0-2.0); RBC 4.13 Mil/uL (3.80-5.20); WHITE BLOOD COUNT 7.9 K/uL (4.8-10.8)
[2018-03-17 16:29] LABS: SQUAMOUS EPITHIAL 4 /hpf (0-5); URINE BILIRUBIN NEGATIVE (NEGATIVE); URINE BLOOD NEGATIVE (NEGATIVE); URINE CLARITY Hazy (Clear); URINE COLOR Yellow (YELLOW); URINE GLUCOSE (UA) NORMAL (Normal); URINE HYALINE CAST 0-2 /lpf (0-2); URINE LEUKOCYTE ESTERASE 3+ Leu/uL (Negative); URINE PROTEIN NEGATIVE (NEGATIVE)
[2018-03-17 16:35] LABS: ALB/GLOB RATIO 0.8 (1.0-2.1); ALBUMIN 3.9 g/dL (3.5-5.0); ALT/SGPT 52 U/L (9-52); AST/SGOT 70 U/L (14-36); BLOOD UREA NITROGEN 19 mg/dL (7-17); CALCIUM 9.3 mg/dl (8.6-10.4); GFR AFRICAN-AMERICAN > 60; GFR NON-AFRICAN AMERICAN > 60
[2018-03-17 17:13] LABS: BARBITURATES, UR NEGATIVE (NEGATIVE); OPIATES, UR NEGATIVE (NEGATIVE); PHENCYCLIDINE, UR NEGATIVE (NEGATIVE)
[2018-03-17 17:14] LABS: BENZODIAZEPINES, UR POSITIVE (NEGATIVE)
[2018-03-17] MEDS ORDERED: Sodium Chloride 0.9% 1,000 ML IV ONE (17:19)
--- NOTE | 2018-03-17 20:20 | C.PDOC ---
History Of Present Illness Pt was BIBEMS due to AMS/intoxication. Time Seen by Provider: 03/17/18 15:22 Chief Complaint (Nursing): Substance Abuse History Per: Patient, EMS History/Exam Limitations: intoxication Onset/Duration Of Symptoms: Unknown Current Symptoms Are (Timing): Still Present Suicide/Self Injury Attempted (Context): None Modifying Factor(s): Alcohol, Narcotics Severity: Severe Associated Symptoms: denies: Suicidal Thoughts, Suicidal Plan Additional History Per: Prior Records Past Medical History Reviewed: Historical Data, Nursing Documentation, Vital Signs Vital Signs: Last Vital Signs Temp 98.6 F 03/17/18 18:38 Pulse 74 03/17/18 18:38 Resp 16 03/17/18 18:38 BP 106/74 03/17/18 18:38 Pulse Ox 98 03/17/18 18:38 - Medical History PMH: HTN Family History: States: Unknown Family Hx - Social History Hx Tobacco Use: Yes (Light smoker <10 cigarettes daily) Hx Alcohol Use: Yes Hx Substance Use: No (denies) - Immunization History Hx Tetanus Toxoid Vaccination: No Hx Influenza Vaccination: No Hx Pneumococcal Vaccination: No Review Of Systems Review Of Systems: ROS cannot be obtained secondary to pt's inabilty to answer questions. Physical Exam - Physical Exam Appears: Other (Sleeping. Only responsive to deep painful stimuli.) Skin: Normal Color, Warm, Dry, No Rash Head: Atraumatic, Normacephalic Eye(s): bilateral: PERRL (but pinpoint) Neck: Normal ROM, No Midline Cervical Tenderness, No Step Off Deformity, Supple Cardiovascular: Rhythm Regular Respiratory: Normal Breath Sounds (slow), No Accessory Muscle Use Gastrointestinal/Abdominal: Soft Extremity: Normal ROM, No Deformity Neurological/Psych: No Response To Commands Pain Response: Withdraws With Pain Gait: Unable To Assess ED Course And Treatment - Laboratory Results Result Diagrams: 03/17/18 15:54 03/17/18 15:54 Interpretation Of Abnormal: UTI O2 Sat by Pulse Oximetry: 98 Pulse Ox Interpretation: Normal Progress Note: Pt was given 0.8mg Narcan IVP upon arrival with good response. Reassessment Condition: Improved Progress - Interventions Interventions:: Observation, Intravenous fluid - Medications Administered Intravenous: Other (Narcan) - Data Reviewed Data Reviewed: Lab, Old records - Patient Status Patient status: Mostly improved - Critical Care Citical Care: Excluding Proc Time Critical Care Time: 45 minutes - Continuity of Care Discussed patient case with:: Patient, ED Nurse - Patient Plan Patient Plan: Discharge, F/U with PCP, Continue present meds Disposition Counseled Patient/Family Regarding: Studies Performed, Diagnosis, Need For Followup - Disposition Referrals: Milton Aranda MD [Staff Provider] - Disposition: HOME/ ROUTINE Disposition Time: 20:22 Condition: IMPROVED Instructions: Narcotic Overdose (DC) Forms: [facility] (Lithuanian) - Clinical Impression Clinical Impression: Narcotic overdose
[2018-03-17 20:37] VITALS: O2SAT 100
[2018-03-17 22:18] VITALS: BP 104/62; PULSE 82; RESP 16; TEMP 98.2
== END 2018-03-17 22:18 | disposition home or self-care (01) ==
LOC: C.ER 15:12
DX: T50.991A Poisoning by other drugs, medicaments and biological substances, accidental (unintentional), initial encounter (principal); Y92.9 Unspecified place or not applicable; I10 Essential (primary) hypertension; F17.210 Nicotine dependence, cigarettes, uncomplicated
CPT/HCPCS: 80053; 81001; 82948; 85025; 87086; 96361; 96374; 99285; G0480; J2310; J7040

== ENCOUNTER 2018-03-23 16:20 | Emergency (ER) | payer MEDICARE ==
[2018-03-23 16:33] VITALS: RESP 18
--- NOTE | 2018-03-23 17:37 | C.PDOC ---
History Of Present Illness The patient is a 67 year old female whose PMHx includes alcohol abuse and frequent falls. Patient has been seen frequently over the past several months. Patient's PMD, Dr. Aranda, has prescribed Gabapentin and Naproxen for patient's chronic pain. Patient has been referred to pain management, but it is unclear whether she has been compliant. Patient presents to the ED today for evaluation after she fell in her bathroom and landed onto her right hip two days ago. Patient is complaining of pain to her lateral hip and anterior thigh. Patient is able to walk and bear weight to the area without difficulty. She denies head injury, loss of consciousness, extremity numbness/weakness. Time Seen by Provider: 03/23/18 16:35 Chief Complaint (Nursing): Weakness/Neurological Deficit History Per: Patient History/Exam Limitations: no limitations Current Symptoms Are (Timing): Still Present Additional History Per: Patient Past Medical History Reviewed: Historical Data, Nursing Documentation, Vital Signs Vital Signs: Last Vital Signs Temp 98.8 F 03/23/18 18:18 Pulse 101 H 03/23/18 18:18 Resp 18 03/23/18 18:18 BP 100/69 03/23/18 18:18 Pulse Ox 98 03/23/18 18:18 - Medical History PMH: HTN Surgical History: No Surg Hx Family History: States: Unknown Family Hx - Social History Hx Tobacco Use: Yes (Light smoker <10 cigarettes daily) Hx Alcohol Use: Yes Hx Substance Use: No (denies) - Immunization History Hx Tetanus Toxoid Vaccination: No Hx Influenza Vaccination: No Hx Pneumococcal Vaccination: No Review Of Systems Musculoskeletal: Positive for: Other (right hip pain ) Neurological: Negative for: Weakness, Numbness, Other (loss of consciousness) Physical Exam - Physical Exam Appears: Non-toxic, No Acute Distress Skin: Normal Color, Warm, Dry, No Ecchymosis Head: Atraumatic, Normacephalic Eye(s): bilateral: Normal Inspection Oral Mucosa: Moist Neck: Supple Chest: Symmetrical, No Deformity, No Tenderness Cardiovascular: Rhythm Regular, No Murmur Respiratory: Normal Breath Sounds, No Rales, No Rhonchi, No Wheezing Gastrointestinal/Abdominal: Soft, No Tenderness, No Guarding, No Rebound Extremity: Normal ROM (right hip and right knee ), No Tenderness (bony point tenderness to right hip ), Capillary Refill (less than 2 seconds ), No Swelling Neurological/Psych: Oriented x3, Normal Speech, Normal Cognition ED Course And Treatment O2 Sat by Pulse Oximetry: 100 (on RA) Pulse Ox Interpretation: Normal - Other Rad right hip X-Ray: Interpreted by Me Interpretation: No evidence of fracture or dislocation. Severe DJD bilateral hips. Progress Note: Right hip XR ordered and reviewed. Reevaluation Time: 18:03 Reassessment Condition: Unchanged (Patient has pain medication.) Disposition Counseled Patient/Family Regarding: Studies Performed, Diagnosis, Need For Followup - Disposition Referrals: Milton Aranda MD [Family Provider] - Disposition: HOME/ ROUTINE Disposition Time: 18:05 Condition: STABLE Additional Instructions: Take your pain medication as prescribed. Follow up with pain management as directed. Instructions: Chronic Pain (DC), Osteoarthritis (DC), Hip Pain Forms: [facility] (Yoruba) - Clinical Impression Clinical Impression: Arthritis, Hip pain, right, Chronic pain disorder - Scribe Statement The provider has reviewed the documentation as recorded by the Scribe (Natividad Haines) Provider Attestation: All medical record entries made by the Scribe were at my direction and personally dictated by me. I have reviewed the chart and agree that the record accurately reflects my personal performance of the history, physical exam, medical decision making, and the department course for this patient. I have also personally directed, reviewed, and agree with the discharge instructions and disposition.
[2018-03-23 18:19] VITALS: BP 100/69; PULSE 101; TEMP 98.8
[2018-03-24 00:40] VITALS: O2SAT 100
--- NOTE | 2018-03-24 08:41 | RAD ---
PROCEDURE: Right Hip Radiographs. HISTORY: fall COMPARISON: None. FINDINGS: BONES: No acute fracture. Deformity of right femoral neck likely reflects old healed fracture. JOINTS: Severe bilateral superior osteoarthritis of the hip with remodeling of right femoral head and remodeling of right acetabulum. Loss of superior joint space and subchondral sclerosis bilaterally. Suspect subchondral cysts in superior acetabulum. SOFT TISSUES: Normal. OTHER FINDINGS: None. IMPRESSION: Severe bilateral osteoarthritis. Probable old healed right femoral neck fracture. No acute fracture.
== END 2018-03-23 18:31 | disposition home or self-care (01) ==
LOC: C.ER 16:20
DX: M16.0 Bilateral primary osteoarthritis of hip (principal); M25.551 Pain in right hip; G89.29 Other chronic pain

== ENCOUNTER 2018-07-13 23:40 | Inpatient (IN) | payer MEDICAID, MEDICARE, OTHER ==
--- NOTE | 2018-07-14 01:03 | C.PDOC ---
History Of Present Illness 67yo female, comes to ER for evaluation of injury to right hip s/p mechanical fall. Patient reports a history of hypertension, hepatitis-c and states she takes neurontin, antihypertensive medications and "water pills." She denies any head injury, loss of consciousness, weakness, numbness. - HPI Time Seen by Provider: 07/14/18 00:03 Chief Complaint (Nursing): Trauma History Per: Patient History/Exam Limitations: no limitations Injury Occurred (Timing): Just Before Arrival Location Of Injury: Right: Hip Additional History Per: Patient Past Medical History Reviewed: Historical Data, Nursing Documentation, Vital Signs Vital Signs: Last Vital Signs Temp 98.8 F 07/13/18 23:50 Pulse 92 H 07/14/18 04:41 Resp 14 07/14/18 04:41 BP 105/72 07/14/18 04:41 Pulse Ox 95 07/14/18 04:47 - Medical History PMH: HTN Family History: States: Unknown Family Hx - Social History Hx Tobacco Use: Yes (Light smoker <10 cigarettes daily) Hx Alcohol Use: Yes Hx Substance Use: No (denies) - Immunization History Hx Tetanus Toxoid Vaccination: No Hx Influenza Vaccination: No Hx Pneumococcal Vaccination: No Review Of Systems Except As Marked, All Systems Reviewed And Found Negative. Constitutional: Negative for: Fever, Chills Eyes: Negative for: Vision Change Cardiovascular: Negative for: Chest Pain Respiratory: Negative for: Shortness of Breath Gastrointestinal: Negative for: Vomiting Musculoskeletal: Positive for: Other (right hip pain) Neurological: Negative for: Weakness, Numbness Physical Exam - Physical Exam Appears: Non-toxic, No Acute Distress Skin: Normal Color, Warm, Dry Head: Atraumatic, Normacephalic Eye(s): bilateral: Normal Inspection, PERRL, EOMI Nose: Normal Oral Mucosa: Moist Throat: Normal Neck: Normal, Supple Chest: Symmetrical Cardiovascular: Rhythm Regular Respiratory: Normal Breath Sounds Gastrointestinal/Abdominal: Normal Exam, Soft, No Tenderness Back: Normal Inspection, No CVA Tenderness, No Vertebral Tenderness, No Paraspinal Tenderness Extremity: No Normal ROM (+ decreased ROM at right hip due to pain), Tenderness (tenderness right hip), No Deformity, No Swelling Neurological/Psych: Oriented x3 ED Course And Treatment - Laboratory Results Result Diagrams: 07/14/18 02:05 07/14/18 02:05 O2 Sat by Pulse Oximetry: 95 (RA) Pulse Ox Interpretation: Normal Medical Decision Making Medical Decision Making: Plan: * XR hips * XR Right femur * Tylenol 975mg PO 0153 XR reviewed and shows indication of pelvic fracture. CT Pelvis w/o PO or IV contrast ordered 0341 EXAM: CT Pelvis Without Intravenous Contrast CLINICAL HISTORY: 67 years old, female; Pain and injury or trauma; Fall; Initial encounter; Fracture of pelvis & hip; Right; Traumatic fracture; Neck of femur; Closed fracture; Pelvic pain; Additional info: Trauma / broken hip TECHNIQUE: Axial computed tomography images of the pelvis without intravenous contrast. All CT scans at this facility use at least one of these dose optimization techniques: automated exposure control; mA and/or kV adjustment per patient size (includes targeted exams where dose is matched to clinical indication); or iterative reconstruction. Coronal and sagittal reformatted images were created and reviewed. COMPARISON: No relevant prior studies available. FINDINGS: Bones/joints: Advanced degenerative changes in each hip. Large hip effusions bilaterally. Degenerative changes lumbar spine. No acute fracture. No dislocation. Soft tissues: Unremarkable. Vasculature: Atherosclerotic disease. Bladder: Unremarkable. No stones. IMPRESSION: 1. Advanced degenerative changes in each hip. 2. Large hip effusions bilaterally. [address] Ambrosio for admission for PT eval. Disposition Counseled Patient/Family Regarding: Diagnosis - Disposition Disposition: HOSPITALIZED Disposition Time: 05:27 Condition: GOOD Forms: [facility] (Icelandic) - Clinical Impression Clinical Impression: Hip pain, right, Fall - Scribe Statement The provider has reviewed the documentation as recorded by the Renita Hoang Provider Attestation: All medical record entries made by the Renita were at my direction and personally dictated by me. I have reviewed the chart and agree that the record accurately reflects my personal performance of the history, physical exam, medical decision making, and the department course for this patient. I have also personally directed, reviewed, and agree with the discharge instructions and disposition.
[2018-07-14 02:08] LABS: BASO # 0.1 K/uL (0.0-0.2); BASO % 1.2 % (0.0-2.0); EOS # 0.1 K/uL (0.0-0.7); EOS % 1.4 % (0.0-4.0); HEMOGLOBIN 12.4 g/dL (11.0-16.0); LYMPH # 3.3 K/uL (1.0-4.3); LYMPH % 43.9 % (20.0-40.0); MEAN CELL VOLUME 88.6 fL (81.0-99.0); MEAN CORPUSCULAR HEMOGLOBIN 29.9 pg (27.0-31.0); MEAN CORPUSCULAR HGB CONC 33.7 g/dL (33.0-37.0); MEAN PLATELET VOLUME 9.8 fL (7.2-11.7); MONO # 0.5 K/uL (0.0-0.8); MONO % 6.4 % (0.0-10.0); NEUT # 3.5 K/uL (1.8-7.0); NEUT % 47.1 % (50.0-75.0); RBC 4.13 Mil/uL (3.80-5.20); RED CELL DISTRIBUTION WIDTH 13.8 % (11.5-14.5); WHITE BLOOD COUNT 7.4 K/uL (4.8-10.8)
[2018-07-14 02:12] LABS: SQUAMOUS EPITHIAL 6 /hpf (0-5); URINE BACTERIA RARE (<OCC); URINE BILIRUBIN NEGATIVE (NEGATIVE); URINE CLARITY Hazy (Clear); URINE COLOR Yellow (YELLOW); URINE GLUCOSE (UA) NORMAL (Normal); URINE LEUKOCYTE ESTERASE 3+ Leu/uL (Negative); URINE PROTEIN NEGATIVE (NEGATIVE)
[2018-07-14 02:16] LABS: INR 1.1; PROTHROMBIN TIME 12.5 SECONDS (9.7-12.2)
[2018-07-14 02:18] LABS: URINE BLOOD 1+ (NEGATIVE)
[2018-07-14 02:35] LABS: ALB/GLOB RATIO 0.9 (1.0-2.1); ALBUMIN 3.9 g/dL (3.5-5.0); ALT/SGPT 73 U/L (9-52); AST/SGOT 82 U/L (14-36); B-TYPE NATRIURETIC PEPTIDE 83.4 pg/mL (0-900); BLOOD UREA NITROGEN 14 mg/dL (7-17); CALCIUM 9.1 mg/dl (8.6-10.4); GFR NON-AFRICAN AMERICAN > 60; LIPASE 111 U/L (23-300)
--- NOTE | 2018-07-14 08:37 | RAD ---
Date of service: 07/14/2018 PROCEDURE: HISTORY: fall COMPARISON: 03/23/2018 TECHNIQUE: AP pelvis and frog's leg view. FINDINGS: No fracture or dislocation appreciated Bilateral superolateral hip joint space narrowing with bilateral superolateral subchondral sclerosis coalescence cystic change noted. There is abnormal uncovering of each femoral head and remodeling of each femoral head. Bilateral hip dysplasia with osteoarthrosis hyper trophic productive changes are inferred. These hypertrophic changes are asymmetrically prominent on the right superior femoral neck. Where additional cystic changes are suggested. Overall bone mineralization here appears similar. Inferomedial osseous hip joint space productive changes also present. . Secondary superimposed bilateral hip avascular necrosis possible. Inferior lumbar facet hypertrophic arthrosis IMPRESSION: No fracture or dislocation appreciated. Advanced hypertrophic and cystic osteoarthrosis -each hip - right greater than left. Intrinsic bilateral background hip dysplasia suspect. Secondary bilateral hip avascular necrosis possible
--- NOTE | 2018-07-14 08:39 | RAD ---
Date of service: 07/14/2018 PROCEDURE: HISTORY: trauma COMPARISON: None TECHNIQUE: Four views FINDINGS: Severe osseous hypertrophic/ productive arthrosis -right hip present. No fracture or dislocation appreciated. Background hip dysplasia is suspect. Superimposed right hip avascular necrosis possible Decreased space tricompartmental - knee Lateral tibial plateau moderate osteophytosis IMPRESSION: No acute fracture appreciated Osseous hypertrophic changes and other findings as referenced above noted
--- NOTE | 2018-07-14 09:17 | CT ---
Date of service: 07/14/2018 PROCEDURE: CT Pelvis without contrast HISTORY: Trauma / broken hip COMPARISON: No comparison made were radiographs of the pelvis and right hip earlier same day. TECHNIQUE: Contiguous axial images of the pelvis . No intravenous or oral contrast given. Coronal and sagittal reformats generated. Radiation dose: Total exam DLP = 313.97 mGy-cm. This CT exam was performed using one or more of the following dose reduction techniques: Automated exposure control, adjustment of the mA and/or kV according to patient size, and/or use of iterative reconstruction technique. . FINDINGS: BLADDER: Urinary bladder incompletely distended which presumably accounts thick-walled appearance however urinalysis correlation recommended to exclude UTI/ cystitis REPRODUCTIVE ORGANS: Suspect atrophic changes of the uterus VISUALIZED BOWEL: Unremarkable. PERITONEUM: Unremarkable, as visualized. No free fluid. No free air. LYMPH NODES: Unremarkable. No enlarged lymph nodes. BONES: No evidence of acute displaced fracture nor dislocation. Both femoral heads are appropriately located within the respective acetabula. Significant degenerative osteoarthritis both hip joints with subchondral sclerosis and subchondral cystic changes with prominent osteophytes arising from the inferolateral and inferomedial margins of both femoral heads. In addition, there also appears to be bony productive changes surrounding the inferior margins of the right femoral head and neck. The pronounced anteriorly. Degenerative spondylosis of the lumbosacral spine. Chronic appearing anterior wedge deformity of the L3 segment. VASCULATURE: Vasculature poorly delineated due to the lack of circulating intravenous contrast material. OTHER FINDINGS: None. IMPRESSION: No evidence of acute displaced fracture nor dislocation. . Significant degenerative osteoarthritis both hip joints right greater than left. Urinary bladder incompletely distended which presumably accounts for thick-walled appearance. The possibility of a cystitis/UTI not excluded. Clinical correlation recommended.
--- NOTE | 2018-07-14 09:28 | RAD ---
Date of service: 07/14/2018 PROCEDURE: CHEST RADIOGRAPH, 1 VIEW HISTORY: abd pain COMPARISON: Comparison chest dated 03/09/2018. FINDINGS: LUNGS: Previously noted small right apical lateral pleural based cystic and/or bleb changes less well seen due to slight apical lordotic patient positioning on the current exam. No acute infiltrates. PLEURA: No pneumothorax or pleural fluid seen. CARDIOVASCULAR: Ed size within range of normal. TheNormal. OSSEOUS STRUCTURES: No significant abnormalities. VISUALIZED UPPER ABDOMEN: Normal. OTHER FINDINGS: None. IMPRESSION: No active disease.
[2018-07-14] MEDS: Naproxen 550 mg Tab PO PRN (11:36)
--- NOTE | 2018-07-14 13:02 | CP.PCM.PN ---
Subjective - Date & Time of Evaluation Date of Evaluation: 07/14/18 Time of Evaluation: 11:40 - Subjective Subjective: PGY2 Medicine Note for Dr. Aranda Patient seen and examined at bedside this morning. Patient is well known to Dr. Aranda. She has a history of arthritis, alcohol abuse, hepatitis C, asthma and frequent falls. She uses a walker at baseline. She was recently discharged from a jail within the past two weeks. She falls usually at least once per day. She was seen in Dr. Aranda's office yesterday. Patient states while she was walking last night, her legs gave out and she fell to the ground. She did not hit her head. She denies LOC. She is experiencing right hip pain, but this is the same pain that she has been experiencing for "years". Patient states that she needs a hip replacement. She has no other complaints at this time. Denies fevers, chills, nausea, vomiting, diarrhea, constipation, chest pain, shortness of breath, abdominal pain, lightheadedness, dizziness, numbness or tingling. 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 Patient used to be homeless but now rents out a room in a group housing area. She has to walk up approximately 15 steps using a hand-railing for support. Objective - Vital Signs/Intake and Output Vital Signs (last 24 hours): Temp Pulse Resp BP Pulse Ox 98.1 F 83 15 116/79 100 07/14/18 11:35 07/14/18 11:35 07/14/18 11:35 07/14/18 11:35 07/14/18 11:35 - Medications Medications: Current Medications Ceftriaxone Sodium 1 gm/ (Sodium Chloride) 100 mls @ 100 mls/hr IVPB Q24H RASHEEDA PRN Reason: Protocol Last Admin: 07/14/18 11:35 Dose: 100 mls/hr Naproxen (Anaprox Ds) 550 mg PO Q12H PRN PRN Reason: Pain, moderate (4-7) Last Admin: 07/14/18 11:36 Dose: 550 mg - Labs Labs: 07/14/18 02:05 07/14/18 02:05 PT 12.5 SECONDS (9.7-12.2) H 07/14/18 02:05 INR 1.1 07/14/18 02:05 APTT 34 SECONDS (21-34) 07/14/18 02:05 - Constitutional Appears: Non-toxic, No Acute Distress - Head Exam Head Exam: ATRAUMATIC, NORMOCEPHALIC - Eye Exam Eye Exam: Normal appearance. absent: Scleral icterus - ENT Exam ENT Exam: Mucous Membranes Moist Additional comments: poor dentition - Respiratory Exam Respiratory Exam: Clear to Ausculation Bilateral, NORMAL BREATHING PATTERN. absent: Accessory Muscle Use, Rales, Rhonchi, Wheezes, Respiratory Distress - Cardiovascular Exam Cardiovascular Exam: REGULAR RHYTHM, +S1, +S2 - GI/Abdominal Exam GI & Abdominal Exam: Soft. absent: Distended, Firm, Guarding, Rigid, Tenderness - Extremities Exam Extremities Exam: Tenderness (right hip). absent: Calf Tenderness, Pedal Edema Additional comments: Right hip - tender to palpation. decrease range of motion. good strength. - Neurological Exam Neurological Exam: Alert, Awake, Oriented x3 Neuro motor strength exam: Left Upper Extremity: 5, Right Upper Extremity: 5, Left Lower Extremity: 5, Right Lower Extremity: 5 - Psychiatric Exam Psychiatric exam: Normal Affect, Normal Mood - Skin Skin Exam: Dry, Warm Assessment and Plan - Assessment and Plan (Free Text) Plan: Chronic Right Hip Pain - s/p fall hx of osteoarthritis hx of many falls Hip/Pelvis X-Ray: No fracture or dislocation appreciated. Advanced hypertrophic and cystic osteoarthrosis -each hip - right greater than left. Intrinsic bilateral background hip dysplasia suspect. Secondary bilateral hip avascular necrosis possible Femur X-Ray: No acute fracture appreciated. Osseous hypertrophic changes and other findings as referenced above noted Pelvis CT: No evidence of acute displaced fracture nor dislocation. . Significant degenerative osteoarthritis both hip joints right greater than left. Urinary bladder incompletely distended which presumably accounts for thick -walled appearance. The possibility of a cystitis/UTI not excluded. Clinical correlation recommended. CXR: No active disease. Medications: * Naproxen 550mg PO q12h prn Urinary Tract Infection UA 01/14: Blood 1+, Urobil 2.0, Leuk Maisha 3+ Urine culture pending Rocephin 1gm IVPB daily (started on 07/14) Prophylactic Care Lovenox 40mg SC daily Protonix 40mg PO daily All medical management per Dr. Aranda
--- NOTE | 2018-07-14 19:23 | CARD ---
APPROVED REPORT Date of service: 07/14/2018 EKG Measurement Heart [id number] <Conclusion> Normal sinus rhythm Nonspecific T wave abnormality Abnormal ECG
[2018-07-14 19:31] VITALS: RESP 20
[2018-07-15] MEDS: Naproxen 550 mg Tab PO PRN (01:35)
[2018-07-15 07:04] LABS: BASO # 0.1 K/uL (0.0-0.2); BASO % 1.3 % (0.0-2.0); EOS # 0.1 K/uL (0.0-0.7); HEMOGLOBIN 11.7 g/dL (11.0-16.0); LYMPH # 2.6 K/uL (1.0-4.3); LYMPH % 39.5 % (20.0-40.0); MEAN CORPUSCULAR HEMOGLOBIN 29.9 pg (27.0-31.0); MEAN CORPUSCULAR HGB CONC 33.3 g/dL (33.0-37.0); MEAN PLATELET VOLUME 9.9 fL (7.2-11.7); MONO # 0.4 K/uL (0.0-0.8); NEUT # 3.3 K/uL (1.8-7.0); NEUT % 51.2 % (50.0-75.0); NRBC % 0.1 % (0.0-2.0); RBC 3.91 Mil/uL (3.80-5.20); WHITE BLOOD COUNT 6.5 K/uL (4.8-10.8)
--- NOTE | 2018-07-15 07:10 | HP ---
Copied To: Milton Aranda MD Attending MD: Milton Aranda MD HISTORY OF PRESENT ILLNESS: A 67-year-old female, chief complaint frequent falls, hip pain,. Patient has a history of alcoholism, has alcoholic neuropathy. PHYSICAL EXAMINATION: GENERAL: The patient is awake, alert, and oriented. VITAL SIGNS: Temperature 98, pulse 90. HEENT: Within normal limits. NECK: Supple. CHEST: Symmetrical. HEART: Regular. ABDOMEN: Soft. EXTREMITIES: No edema. 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 Milton Aranda MD
[2018-07-15 07:44] LABS: ALB/GLOB RATIO 0.9 (1.0-2.1); ALBUMIN 3.2 g/dL (3.5-5.0); ALT/SGPT 58 U/L (9-52); AST/SGOT 57 U/L (14-36); BLOOD UREA NITROGEN 16 mg/dL (7-17); GFR NON-AFRICAN AMERICAN > 60
--- NOTE | 2018-07-15 08:32 | CP.PCM.PN ---
Subjective - Date & Time of Evaluation Date of Evaluation: 07/15/18 Time of Evaluation: 07:05 - Subjective Subjective: PGY3 Resident - Medicine Progress Note Patient seen and examined at bedside. No acute distress. No overnight events. Patient c/o persistent pain at her hips and knees due to chronic arthritis. She is otherwise tolerating her diet and offers no additional acute complaints. 12- point review of systems is otherwise negative. Objective - Vital Signs/Intake and Output Vital Signs (last 24 hours): Temp Pulse Resp BP Pulse Ox 98.1 F 66 20 123/80 100 07/15/18 08:19 07/15/18 08:19 07/15/18 08:19 07/15/18 08:19 07/15/18 08:19 - Medications Medications: Current Medications Amlodipine Besylate (Norvasc) 10 mg PO DAILY [facility]HE[facility] Chlordiazepoxide (Librium) 25 mg PO Q8 PRN PRN Reason: Anxiety Enoxaparin Sodium (Lovenox) 40 mg SC DAILY [facility] Folic Acid (Folic Acid) 1 mg PO DAILY [facility] Gabapentin (Neurontin) 300 mg PO DAILY [facility] Ceftriaxone Sodium 1 gm/ (Sodium Chloride) 100 mls @ 100 mls/hr IVPB Q24H RASHEEDA PRN Reason: Protocol Last Admin: 07/14/18 11:35 Dose: 100 mls/hr Naproxen (Anaprox Ds) 550 mg PO Q12H PRN PRN Reason: Pain, moderate (4-7) Last Admin: 07/15/18 01:35 Dose: 550 mg Pantoprazole Sodium (Protonix Ec Tab) 40 mg PO DAILY RASHEEDA - Labs Labs: 07/15/18 06:51 07/15/18 06:53 PT 12.5 SECONDS (9.7-12.2) H 07/14/18 02:05 INR 1.1 07/14/18 02:05 APTT 34 SECONDS (21-34) 07/14/18 02:05 - Additional Findings Additional findings: - Constitutional Appears: Non-toxic, No Acute Distress - Head Exam Head Exam: ATRAUMATIC, NORMOCEPHALIC - Eye Exam Eye Exam: Normal appearance. absent: Scleral icterus - ENT Exam ENT Exam: Mucous Membranes Moist Additional comments: poor dentition - Respiratory Exam Respiratory Exam: Clear to Ausculation Bilateral, NORMAL BREATHING PATTERN. absent: Accessory Muscle Use, Rales, Rhonchi, Wheezes, Respiratory Distress - Cardiovascular Exam Cardiovascular Exam: REGULAR RHYTHM, +S1, +S2 - GI/Abdominal Exam GI & Abdominal Exam: Soft. absent: Distended, Firm, Guarding, Rigid, Tenderness - Extremities Exam Extremities Exam: Tenderness (right hip). absent: Calf Tenderness, Pedal Edema Additional comments: Right hip - tender to palpation. decrease range of motion. good strength. - Neurological Exam Neurological Exam: Alert, Awake, Oriented x3 Neuro motor strength exam: Left Upper Extremity: 5, Right Upper Extremity: 5, Left Lower Extremity: 5, Right Lower Extremity: 5 - Psychiatric Exam Psychiatric exam: Normal Affect, Normal Mood - Skin Skin Exam: Dry, Warm Assessment and Plan - Assessment and Plan (Free Text) Assessment: Chronic Right Hip Pain - s/p fall 07/15: addendum to CT pelvis reports large b/l hip joint effusions. see full report. Ortho consult, Dr. Irving, f/u recs. Patient c/o hip pain not responsive to Naproxen. Start Tramadol 25mg PO TID PRN. hx of osteoarthritis hx of many falls Hip/Pelvis X-Ray: No fracture or dislocation appreciated. Advanced hypertrophic and cystic osteoarthrosis -each hip - right greater than left. Intrinsic bilateral background hip dysplasia suspect. Secondary bilateral hip avascular necrosis possible Femur X-Ray: No acute fracture appreciated. Osseous hypertrophic changes and other findings as referenced above noted Pelvis CT: No evidence of acute displaced fracture nor dislocation. . Significant degenerative osteoarthritis both hip joints right greater than left. Urinary bladder incompletely distended which presumably accounts for thick -walled appearance. The possibility of a cystitis/UTI not excluded. Clinical correlation recommended. CXR: No active disease. Medications: * Naproxen 550mg PO q12h prn * Tramadol 25mg PO TID PRN. Urinary Tract Infection UA 01/14: Blood 1+, Urobil 2.0, Leuk Maisha 3+ Urine culture pending Rocephin 1gm IVPB daily (started on 07/14) Prophylactic Care Lovenox 40mg SC daily Protonix 40mg PO daily PT eval/treat Disposition: patient will be discharged to [facility] when workup is complete. All medical management per Dr. Aranda
[2018-07-15] MEDS: Enoxaparin 40 mg Syringe SC SCH (09:53)
[2018-07-15] MEDS: Pantoprazole 40 mg EC Tab PO SCH (09:53)
--- NOTE | 2018-07-15 12:30 | CP.PCM.CON ---
History of Present Illness - History of Present Illness History of Present Illness: Orthopedic consultation Dr. Irving 67F complains of B hip and groin pain x years. She says she saw an orthopedic doctor on [address] and he didn't take her insurance, but she was told that she needs a hip replacement in the past. She says she had some recent falls, but the pain is the same as always. SHe walks with walker, sometimes cane. SHe had recent rehab admission but was discharged after 2 weeks, then she went to [facility] at that time. Patient states she is still drinking daily and smokes 5 cigs per day. NO fever/chills/increased hip pain, numbness/tingling CP/SOB Patient with UTI on admission Advised patient that she is indicated for B THR (R more painful than left) however UTI must be resolved. Also advised patient that she would need alcohol cessation, and recommended smoking cessation as well. Patient instructed to continue PT/ambulation and above recommendations and to f/u in office of DR. Irving as outpatient. Review of Systems - Review of Systems All systems: reviewed and no additional remarkable complaints except Past Patient History - Infectious Disease Hx of Infectious Diseases: None - Past Medical History & Family History Past Medical History?: Yes - Past Social History Smoking Status: Current Some Days Smoker - CARDIAC Hx Hypertension: Yes - HEMATOLOGICAL/ONCOLOGICAL Hx Blood Disorders: Yes Hx Hepatitis C: Yes - MUSCULOSKELETAL/RHEUMATOLOGICAL Hx Falls: Yes - GENITOURINARY/GYNECOLOGICAL Hx Urinary Tract Infection: Yes - PSYCHIATRIC Hx Substance Use: Yes - SURGICAL HISTORY Hx Surgeries: Yes Hx Eye Surgery: Yes (glaucoma right eye) - ANESTHESIA Hx Anesthesia: Yes Hx Anesthesia Reactions: No Hx Malignant Hyperthermia: No Meds Allergies/Adverse Reactions: Allergies Allergy/AdvReac Type Severity Reaction Status Date / Time No Known Allergies Allergy Verified 03/09/18 15:07 - Medications Medications: Current Medications Amlodipine Besylate (Norvasc) 10 mg PO DAILY [facility] Last Admin: 07/15/18 09:53 Dose: 10 mg Chlordiazepoxide (Librium) 25 mg PO Q8 PRN PRN Reason: Anxiety Enoxaparin Sodium (Lovenox) 40 mg SC DAILY [facility] Last Admin: 07/15/18 09:53 Dose: 40 mg Folic Acid (Folic Acid) 1 mg PO DAILY [facility] Last Admin: 08/24/18 09:53 Dose: 1 mg Gabapentin (Neurontin) 300 mg PO DAILY [facility] Last Admin: 07/15/18 09:53 Dose: 300 mg Ceftriaxone Sodium 1 gm/ (Sodium Chloride) 100 mls @ 100 mls/hr IVPB Q24H RASHEEDA PRN Reason: Protocol Last Admin: 07/15/18 10:52 Dose: 100 mls/hr Naproxen (Anaprox Ds) 550 mg PO Q12H PRN PRN Reason: Pain, moderate (4-7) Last Admin: 07/15/18 01:35 Dose: 550 mg Pantoprazole Sodium (Protonix Ec Tab) 40 mg PO DAILY [facility] Last Admin: 07/15/18 09:53 Dose: 40 mg Tramadol HCl (Ultram) 25 mg PO TID PRN PRN Reason: Pain, severe (8-10) Physical Exam - Constitutional Appears: Well, No Acute Distress - Head Exam Head Exam: ATRAUMATIC - Respiratory Exam Respiratory Exam: NORMAL BREATHING PATTERN - Cardiovascular Exam Additional comments: +DP/PT - Expanded Lower Extremities Exam Right Hip exam: shortening (right leg), normal inspection (limited ROM with pain and stiffness) Ankle exam: FULL ROM Neuro vacular tendon exam: no vascular compromise - Neurological Exam Neurological exam: Alert, Oriented x3 - Psychiatric Exam Psychiatric exam: Normal Affect, Normal Mood - Skin Skin Exam: Dry, Intact, Normal Color, Warm Results - Vital Signs Recent Vital Signs: Last Vital Signs Temp 98.1 F 07/15/18 08:19 Pulse 66 07/15/18 08:19 Resp 20 07/15/18 11:39 BP 123/80 07/15/18 08:19 Pulse Ox 100 07/15/18 08:19 - Labs Result Diagrams: 07/15/18 06:51 07/15/18 06:53 Labs: Laboratory Results - last 24 hr 07/15/18 07/15/18 06:51 06:53 WBC 6.5 RBC 3.91 Hgb 11.7 Hct 35.2 MCV 90.0 MCH 29.9 MCHC 33.3 RDW 14.0 Plt Count 114 L D MPV 9.9 Neut % (Auto) 51.2 Lymph % (Auto) 39.5 Metcalfe % (Auto) 6.0 Eos % (Auto) 2.0 Baso % (Auto) 1.3 Neut # (Auto) 3.3 Lymph # (Auto) 2.6 Metcalfe # (Auto) 0.4 Eos # (Auto) 0.1 Baso # (Auto) 0.1 Sodium 143 Potassium 3.6 Chloride 110 H Carbon Dioxide 28 Anion Gap 8 L BUN 16 Creatinine 0.6 L Est GFR ( Amer) > 60 Est GFR (Non-Af Amer) > 60 Random Glucose 120 H Calcium 9.0 Magnesium 1.5 L Total Bilirubin 0.7 AST 57 H D ALT 58 H D Alkaline Phosphatase 113 Total Protein 7.0 Albumin 3.2 L Globulin 3.8 Albumin/Globulin Ratio 0.9 L Assessment & Plan (1) Primary osteoarthritis of right hip Assessment and Plan: severe degenerative joint disease of bilateral hips patient indicated for THR, however she is still actively drinking daily and advised she must quit prior to consideration for THR smoking cessation advised UTI on admission, tx as per DR. Aranda, and must be resolved prior to any orthopedic surgery patient for [facility] placement, f/u as outpatient in office d/w Dr. Irving, agrees with above Status: Acute (2) Primary osteoarthritis of left hip Status: Acute (3) Avascular necrosis of femur head, left Status: Acute (4) Avascular necrosis of femur head, right Status: Acute
[2018-07-15] MEDS: Tramadol 25 mg PO PRN (22:35)
[2018-07-16] MEDS: Tramadol 25 mg PO PRN ×3 (08:49→22:18)
[2018-07-16] MEDS: Pantoprazole 40 mg EC Tab PO SCH (10:01)
[2018-07-16] MEDS: Enoxaparin 40 mg Syringe SC SCH (10:01)
--- NOTE | 2018-07-16 14:46 | CP.PCM.PN ---
Subjective - Date & Time of Evaluation Date of Evaluation: 07/16/18 Time of Evaluation: 02:40 - Subjective Subjective: S- pt with SEVERRE bialteral hip discomfort L > R pt s/p fall in nursing facility in [place] Objective - Vital Signs/Intake and Output Vital Signs (last 24 hours): Temp Pulse Resp BP Pulse Ox 98.8 F 73 20 111/72 99 07/16/18 08:47 07/16/18 08:47 07/16/18 08:47 07/16/18 08:47 07/16/18 08:47 Intake and Output: 07/16/18 07/16/18 06:59 18:59 Intake Total 300 Balance 300 - Medications Medications: Current Medications Amlodipine Besylate (Norvasc) 10 mg PO DAILY [facility] Last Admin: 07/16/18 10:01 Dose: 10 mg Chlordiazepoxide (Librium) 25 mg PO Q8 PRN PRN Reason: Anxiety Enoxaparin Sodium (Lovenox) 40 mg SC DAILY [facility] Last Admin: 07/16/18 10:01 Dose: 40 mg Folic Acid (Folic Acid) 1 mg PO DAILY [facility] Last Admin: 07/16/18 10:01 Dose: 1 mg Gabapentin (Neurontin) 300 mg PO DAILY [facility] Last Admin: 07/16/18 10:01 Dose: 300 mg Ceftriaxone Sodium 1 gm/ (Sodium Chloride) 100 mls @ 100 mls/hr IVPB Q24H [facility] PRN Reason: Protocol Last Admin: 07/16/18 11:43 Dose: 100 mls/hr Naproxen (Anaprox Ds) 550 mg PO Q12H PRN PRN Reason: Pain, moderate (4-7) Last Admin: 07/15/18 01:35 Dose: 550 mg Pantoprazole Sodium (Protonix Ec Tab) 40 mg PO DAILY [facility] Last Admin: 07/16/18 10:01 Dose: 40 mg Pneumococcal Polyvalent Vaccine (Pneumovax 23 Vaccine) 0.5 ml IM .ONCE ONE Stop: 07/17/18 10:01 Tramadol HCl (Ultram) 25 mg PO TID PRN PRN Reason: Pain, severe (8-10) Last Admin: 07/16/18 08:49 Dose: 25 mg - Labs Labs: 07/15/18 06:51 07/15/18 06:53 PT 12.5 SECONDS (9.7-12.2) H 07/14/18 02:05 INR 1.1 07/14/18 02:05 APTT 34 SECONDS (21-34) 07/14/18 02:05 - Additional Findings Additional findings: objecive musculoskekltsal stance/gait - deferred ROM L hipo restricted ROM R hip restricted positive flewxion contracture/+ lester sign ROM both hips restricted Assessment and Plan - Assessment and Plan (Free Text) Assessment: A- imaging- reveals severe bilateral coxarthrosis no evidence for fx/sepsis P- pt will require Bilateral total hip replacements when medicallys table situatioin discussed with pt / awiating DR Joo Ortiz and mewdical consultants clearance for L THR to be followed by R THR
[2018-07-17] MEDS: Tramadol 25 mg PO PRN ×3 (05:24→23:09)
[2018-07-17] MEDS: Enoxaparin 40 mg Syringe SC SCH (09:01)
[2018-07-17] MEDS: Pantoprazole 40 mg EC Tab PO SCH (09:01)
[2018-07-17] MEDS ORDERED: Pneumococcal 23-Valent Vaccine IM ONE (10:00)
[2018-07-17] MEDS: Naproxen 550 mg Tab PO PRN (17:45)
[2018-07-18] MEDS: Pantoprazole 40 mg EC Tab PO SCH (10:18)
[2018-07-18] MEDS: Naproxen 550 mg Tab PO PRN ×2 (10:18→22:17)
[2018-07-18] MEDS: Enoxaparin 40 mg Syringe SC SCH (10:18)
[2018-07-18] MEDS ORDERED: Ergocalciferol 50,000 Intl Units Cap PO SCH (13:30)
--- NOTE | 2018-07-18 14:21 | CP.PCM.PN ---
Subjective - Date & Time of Evaluation Date of Evaluation: 07/18/18 Time of Evaluation: 14:11 - Subjective Subjective: PGY2 progress note for Dr. Aranda Pt seen and examined at bedside. No acute events overnight. Patient continues to c/o B/L hip pain especially with movement of LE. Patient denies having any numbness, tingling of LE B/L. Patient denies having any CP, SOB, abd pain, N/V/ D/C, F/C. Pt tolerating diet. Objective - Vital Signs/Intake and Output Vital Signs (last 24 hours): Temp Pulse Resp BP Pulse Ox 98.4 F 71 20 98/72 L 98 07/18/18 08:04 07/18/18 08:04 07/18/18 08:04 07/18/18 08:04 07/18/18 08:04 Intake and Output: 07/18/18 07/18/18 06:59 18:59 Intake Total 600 Balance 600 - Medications Medications: Current Medications Amlodipine Besylate (Norvasc) 10 mg PO DAILY [facility] Last Admin: 07/18/18 10:18 Dose: 10 mg Chlordiazepoxide (Librium) 25 mg PO Q8 PRN PRN Reason: Anxiety Enoxaparin Sodium (Lovenox) 40 mg SC DAILY [facility] Last Admin: 07/18/18 10:18 Dose: 40 mg Ergocalciferol (Drisdol 50,000 Intl Units Cap) 1 cap PO Q7D [facility] Folic Acid (Folic Acid) 1 mg PO DAILY [facility] Last Admin: 07/18/18 10:18 Dose: 1 mg Gabapentin (Neurontin) 300 mg PO DAILY [facility] Last Admin: 07/18/18 10:18 Dose: 300 mg Naproxen (Anaprox Ds) 550 mg PO Q12H PRN PRN Reason: Pain, moderate (4-7) Last Admin: 07/18/18 10:18 Dose: 550 mg Pantoprazole Sodium (Protonix Ec Tab) 40 mg PO DAILY [facility] Last Admin: 07/18/18 10:18 Dose: 40 mg Tramadol HCl (Ultram) 25 mg PO TID PRN PRN Reason: Pain, severe (8-10) Last Admin: 07/17/18 23:09 Dose: 25 mg - Labs Labs: 07/15/18 06:51 07/15/18 06:53 PT 12.5 SECONDS (9.7-12.2) H 07/14/18 02:05 INR 1.1 07/14/18 02:05 APTT 34 SECONDS (21-34) 07/14/18 02:05 - Constitutional Appears: Non-toxic, No Acute Distress - Head Exam Head Exam: ATRAUMATIC, NORMOCEPHALIC - ENT Exam ENT Exam: Mucous Membranes Moist - Respiratory Exam Respiratory Exam: Clear to Ausculation Bilateral. absent: Accessory Muscle Use , Rales, Rhonchi, Wheezes, Respiratory Distress - Cardiovascular Exam Cardiovascular Exam: REGULAR RHYTHM, +S1, +S2. absent: Gallop, Rubs, Murmur - GI/Abdominal Exam GI & Abdominal Exam: Soft, Normal Bowel Sounds. absent: Distended, Firm, Guarding, Rigid, Tenderness, Organomegaly - Extremities Exam Extremities Exam: absent: Pedal Edema, Tenderness Additional comments: B/L hip tenderness - Neurological Exam Neurological Exam: Alert, Awake, Oriented x3 - Psychiatric Exam Psychiatric exam: Normal Affect, Normal Mood Assessment and Plan - Assessment and Plan (Free Text) Assessment: Chronic Right Hip Pain - s/p fall Hip/Pelvis X-Ray: No fracture or dislocation appreciated. Advanced hypertrophic and cystic osteoarthrosis -each hip - right greater than left. Intrinsic bilateral background hip dysplasia suspect. Secondary bilateral hip avascular necrosis possible Femur X-Ray: No acute fracture appreciated. Osseous hypertrophic changes and other findings as referenced above noted Pelvis CT: No evidence of acute displaced fracture nor dislocation. . Significant degenerative osteoarthritis both hip joints right greater than left. Urinary bladder incompletely distended which presumably accounts for thick -walled appearance. The possibility of a cystitis/UTI not excluded. Clinical correlation recommended. Large bilateral hip joint effusions. Ortho, Dr. Irving is consulted. recommend outpt elective B/L hip surgery. Patient will be given referral for Dr. Irving upon discharge. Per ortho recs, patient needs to be on supplemental vitamin d with goal vit D above 40 prior to surgery Medications: * Naproxen 550mg PO q12h prn * Tramadol 25mg PO TID PRN. Urinary Tract Infection Ua positive on admission. Pt completed rocephin 3 day treatment Will repeat UA on 07/18/18 to determine if infection eradicated. Will need complete treatment before elective ortho surgery Vitamin d Deficiency Ergocalciferol qweekly with goal of Vitamin D above 40 Prophylactic Care Lovenox 40mg SC daily Protonix 40mg PO daily PT eval/treat Disposition: patient will be discharged to [facility] when workup is complete. All medical management per Dr. Aranda
--- NOTE | 2018-07-18 14:46 | CP.PCM.PN ---
Subjective - Date & Time of Evaluation Date of Evaluation: 07/18/18 Time of Evaluation: 14:42 - Subjective Subjective: Patient states she is a little sore in both hips, but she had PT over the weekend. No new complaints. Review of Systems - Review of Systems All systems: reviewed and no additional remarkable complaints except - Musculoskeletal Musculoskeletal: As Par HPI Objective - Vital Signs/Intake and Output Vital Signs (last 24 hours): Temp Pulse Resp BP Pulse Ox 98.4 F 71 20 98/72 L 98 07/18/18 08:04 07/18/18 08:04 07/18/18 08:04 07/18/18 08:04 07/18/18 08:04 Intake and Output: 07/18/18 07/18/18 06:59 18:59 Intake Total 600 Balance 600 - Medications Medications: Current Medications Amlodipine Besylate (Norvasc) 10 mg PO DAILY [facility] Last Admin: 07/18/18 10:18 Dose: 10 mg Chlordiazepoxide (Librium) 25 mg PO Q8 PRN PRN Reason: Anxiety Enoxaparin Sodium (Lovenox) 40 mg SC DAILY [facility] Last Admin: 07/18/18 10:18 Dose: 40 mg Ergocalciferol (Drisdol 50,000 Intl Units Cap) 1 cap PO Q7D [facility] Folic Acid (Folic Acid) 1 mg PO DAILY [facility] Last Admin: 07/18/18 10:18 Dose: 1 mg Gabapentin (Neurontin) 300 mg PO DAILY [facility] Last Admin: 07/18/18 10:18 Dose: 300 mg Naproxen (Anaprox Ds) 550 mg PO Q12H PRN PRN Reason: Pain, moderate (4-7) Last Admin: 07/18/18 10:18 Dose: 550 mg Pantoprazole Sodium (Protonix Ec Tab) 40 mg PO DAILY [facility] Last Admin: 07/18/18 10:18 Dose: 40 mg Tramadol HCl (Ultram) 25 mg PO TID PRN PRN Reason: Pain, severe (8-10) Last Admin: 07/17/18 23:09 Dose: 25 mg - Labs Labs: 07/15/18 06:51 07/15/18 06:53 PT 12.5 SECONDS (9.7-12.2) H 07/14/18 02:05 INR 1.1 07/14/18 02:05 APTT 34 SECONDS (21-34) 07/14/18 02:05 - Constitutional Appears: Well, No Acute Distress - Respiratory Exam Respiratory Exam: NORMAL BREATHING PATTERN - Cardiovascular Exam Additional comments: +DP/PT pulses - Extremities Exam Additional comments: sensation intact calves soft NT neg homand - Neurological Exam Neurological Exam: Alert, Awake, Oriented x3 Neuro motor strength exam: Left Lower Extremity: 5 (limited hip ROM +pain), Right Lower Extremity: 5 - Psychiatric Exam Psychiatric exam: Normal Affect, Normal Mood - Skin Skin Exam: Dry, Intact, Normal Color, Warm Assessment and Plan (1) Primary osteoarthritis of right hip Assessment & Plan: patient indicated for THR when optimized patient for treatment of UTI as outpt, needs repeat u/a and ucx that are negative smoking cessation advised ETOH cessation advised PT/OT for strengthening, decrease fall risk VTE proph patient can follow up as outpatient Dr. Irving [phone] Status: Acute (2) Primary osteoarthritis of left hip Status: Acute (3) Avascular necrosis of femur head, left Status: Acute (4) Avascular necrosis of femur head, right Status: Acute (5) Vitamin D deficiency Assessment & Plan: recommend > 40 prior to elective joint replacement Status: Acute
[2018-07-18 15:28] LABS: SQUAMOUS EPITHIAL 14 /hpf (0-5); URINE BACTERIA RARE (<OCC); URINE BILIRUBIN NEGATIVE (NEGATIVE); URINE BLOOD 1+ (NEGATIVE); URINE CLARITY Hazy (Clear); URINE COLOR Yellow (YELLOW); URINE GLUCOSE (UA) NORMAL (Normal); URINE LEUKOCYTE ESTERASE 3+ Leu/uL (Negative); URINE PROTEIN NEGATIVE (NEGATIVE); URINE UROBILINOGEN NORMAL mg/dL (0.2-1.0)
[2018-07-18] MEDS: Tramadol 25 mg PO PRN (16:57)
[2018-07-19 08:39] LABS: BASO % 0.7 % (0.0-2.0); EOS # 0.1 K/uL (0.0-0.7); EOS % 1.1 % (0.0-4.0); HEMOGLOBIN 13.1 g/dL (11.0-16.0); LYMPH # 1.8 K/uL (1.0-4.3); LYMPH % 28.8 % (20.0-40.0); MEAN CELL VOLUME 89.3 fL (81.0-99.0); MEAN CORPUSCULAR HEMOGLOBIN 30.2 pg (27.0-31.0); MEAN CORPUSCULAR HGB CONC 33.8 g/dL (33.0-37.0); MEAN PLATELET VOLUME 9.9 fL (7.2-11.7); MONO # 0.5 K/uL (0.0-0.8); MONO % 8.4 % (0.0-10.0); NEUT # 3.9 K/uL (1.8-7.0); NRBC % 0.1 % (0.0-2.0); RBC 4.35 Mil/uL (3.80-5.20); RED CELL DISTRIBUTION WIDTH 14.2 % (11.5-14.5); WHITE BLOOD COUNT 6.4 K/uL (4.8-10.8)
[2018-07-19 08:58] LABS: ALB/GLOB RATIO 0.9 (1.0-2.1); ALBUMIN 3.8 g/dL (3.5-5.0); ALT/SGPT 68 U/L (9-52); AST/SGOT 68 U/L (14-36); BLOOD UREA NITROGEN 23 mg/dL (7-17); CALCIUM 9.4 mg/dl (8.6-10.4); GFR NON-AFRICAN AMERICAN > 60
[2018-07-19] MEDS: Enoxaparin 40 mg Syringe SC SCH (10:18)
[2018-07-19] MEDS: Pantoprazole 40 mg EC Tab PO SCH (10:18)
[2018-07-19] MEDS: Naproxen 550 mg Tab PO PRN (10:18)
--- NOTE | 2018-07-19 10:21 | CP.PCM.PN ---
Subjective - Date & Time of Evaluation Date of Evaluation: 07/19/18 Time of Evaluation: 10:17 - Subjective Subjective: Medicine progress note for Dr. Aranda's service Patient seen and examined. Patient denies dysuria but complains of hip and lower back pain. Patient denies paresthesia in legs. Patient tolerating diet well. Objective - Vital Signs/Intake and Output Vital Signs (last 24 hours): Temp Pulse Resp BP Pulse Ox 97.4 F L 69 20 112/72 98 07/19/18 06:00 07/19/18 06:00 07/19/18 06:00 07/19/18 06:00 07/19/18 06:00 Intake and Output: 07/19/18 07/19/18 06:59 18:59 Intake Total 750 Balance 750 - Medications Medications: Current Medications Amlodipine Besylate (Norvasc) 10 mg PO DAILY [facility] Last Admin: 07/18/18 10:18 Dose: 10 mg Chlordiazepoxide (Librium) 25 mg PO Q8 PRN PRN Reason: Anxiety Enoxaparin Sodium (Lovenox) 40 mg SC DAILY [facility] Last Admin: 07/18/18 10:18 Dose: 40 mg Ergocalciferol (Drisdol 50,000 Intl Units Cap) 1 cap PO Q7D [facility] Folic Acid (Folic Acid) 1 mg PO DAILY [facility] Last Admin: 07/18/18 10:18 Dose: 1 mg Gabapentin (Neurontin) 300 mg PO DAILY [facility] Last Admin: 07/18/18 10:18 Dose: 300 mg Naproxen (Anaprox Ds) 550 mg PO Q12H PRN PRN Reason: Pain, moderate (4-7) Last Admin: 07/18/18 22:17 Dose: 550 mg Pantoprazole Sodium (Protonix Ec Tab) 40 mg PO DAILY [facility] Last Admin: 07/18/18 10:18 Dose: 40 mg Tramadol HCl (Ultram) 25 mg PO TID PRN PRN Reason: Pain, severe (8-10) Last Admin: 07/18/18 16:57 Dose: 25 mg - Labs Labs: 07/19/18 08:28 07/19/18 08:28 PT 12.5 SECONDS (9.7-12.2) H 07/14/18 02:05 INR 1.1 07/14/18 02:05 APTT 34 SECONDS (21-34) 07/14/18 02:05 - Constitutional Appears: Non-toxic, No Acute Distress - Head Exam Head Exam: ATRAUMATIC, NORMOCEPHALIC - Eye Exam Eye Exam: EOMI - ENT Exam ENT Exam: Mucous Membranes Moist - Respiratory Exam Respiratory Exam: Clear to Ausculation Bilateral, NORMAL BREATHING PATTERN - Cardiovascular Exam Cardiovascular Exam: +S1, +S2 - GI/Abdominal Exam GI & Abdominal Exam: Soft, Normal Bowel Sounds. absent: Tenderness - Extremities Exam Extremities Exam: absent: Calf Tenderness, Pedal Edema Additional comments: b/l hip tenderness. lumbar paraspinal musculature tenderness - Neurological Exam Neurological Exam: Alert, Awake - Skin Skin Exam: Warm Assessment and Plan - Assessment and Plan (Free Text) Assessment: Chronic Right Hip Pain - s/p fall Hip/Pelvis X-Ray: No fracture or dislocation appreciated. Advanced hypertrophic and cystic osteoarthrosis -each hip - right greater than left. Intrinsic bilateral background hip dysplasia suspect. Secondary bilateral hip avascular necrosis possible Femur X-Ray: No acute fracture appreciated. Osseous hypertrophic changes and other findings as referenced above noted Pelvis CT: No evidence of acute displaced fracture nor dislocation. Significant degenerative osteoarthritis both hip joints right greater than left. Urinary bladder incompletely distended which presumably accounts for thick-walled appearance. The possibility of a cystitis/UTI not excluded. Clinical correlation recommended. Large bilateral hip joint effusions. Ortho, Dr. Irving is consulted. recommend outpt elective B/L hip surgery. Patient will be given referral for Dr. Irving upon discharge. Per ortho recs, patient needs to be on supplemental vitamin d with goal vit D above 40 prior to surgery Medications: * Naproxen 550mg PO q12h prn * Tramadol 25mg PO TID PRN. Urinary Tract Infection Ua positive on admission. Pt received 4 doses of rocephin from 07/14 to 07/17 Repeat UA from 07/18 positive for leukocyte esterase. will send patient to rehab with PO cipro Vitamin d Deficiency Ergocalciferol qweekly with goal of Vitamin D above 40 Prophylactic Care Lovenox 40mg SC daily Protonix 40mg PO daily PT eval/treat- recommend [facility] Disposition: patient will be discharged to [facility] when workup is complete. All medical management per Dr. Aranda Patient is stable for discharge to rehab facility when bed is available per Dr. Aranda. Patient is to resume home medications and start cipro for urinary tract infection. Patient is to follow up with Dr. Aranda and Dr. Irving upon discharge. Patient is to return to the ER if symptoms reoccur or worsen. This was explained to the patient who understands and agrees.
--- NOTE | 2018-07-19 10:54 | CP.PCM.PN ---
Subjective - Date & Time of Evaluation Date of Evaluation: 07/19/18 Time of Evaluation: 10:53 - Subjective Subjective: Patient still complaining of hip pain. No new complaints Objective - Vital Signs/Intake and Output Vital Signs (last 24 hours): Temp Pulse Resp BP Pulse Ox 97.4 F L 69 20 112/72 98 07/19/18 06:00 07/19/18 06:00 07/19/18 06:00 07/19/18 06:00 07/19/18 06:00 Intake and Output: 07/19/18 07/19/18 06:59 18:59 Intake Total 750 Balance 750 - Medications Medications: Current Medications Amlodipine Besylate (Norvasc) 10 mg PO DAILY [facility] Last Admin: 07/19/18 10:18 Dose: 10 mg Chlordiazepoxide (Librium) 25 mg PO Q8 PRN PRN Reason: Anxiety Enoxaparin Sodium (Lovenox) 40 mg SC DAILY [facility] Last Admin: 07/19/18 10:18 Dose: 40 mg Ergocalciferol (Drisdol 50,000 Intl Units Cap) 1 cap PO Q7D [facility] Folic Acid (Folic Acid) 1 mg PO DAILY [facility] Last Admin: 07/19/18 10:18 Dose: 1 mg Gabapentin (Neurontin) 300 mg PO DAILY [facility] Last Admin: 07/19/18 10:23 Dose: 300 mg Naproxen (Anaprox Ds) 550 mg PO Q12H PRN PRN Reason: Pain, moderate (4-7) Last Admin: 07/19/18 10:18 Dose: 550 mg Pantoprazole Sodium (Protonix Ec Tab) 40 mg PO DAILY [facility] Last Admin: 07/19/18 10:18 Dose: 40 mg Tramadol HCl (Ultram) 25 mg PO TID PRN PRN Reason: Pain, severe (8-10) Last Admin: 07/18/18 16:57 Dose: 25 mg - Labs Labs: 07/19/18 08:28 07/19/18 08:28 PT 12.5 SECONDS (9.7-12.2) H 07/14/18 02:05 INR 1.1 07/14/18 02:05 APTT 34 SECONDS (21-34) 07/14/18 02:05 - Constitutional Appears: Well, No Acute Distress - Respiratory Exam Respiratory Exam: NORMAL BREATHING PATTERN - Cardiovascular Exam Additional comments: +DP/PT pulses - Extremities Exam Additional comments: sensation itanct calves osft NT neg homans - Neurological Exam Neurological Exam: Alert, Awake, Oriented x3 Neuro motor strength exam: Left Lower Extremity: 5, Right Lower Extremity: 5 - Psychiatric Exam Psychiatric exam: Normal Affect, Normal Mood - Skin Skin Exam: Dry, Intact, Normal Color, Warm Assessment and Plan (1) Primary osteoarthritis of right hip Assessment & Plan: patient indicated for THR when optimized patient for treatment of UTI as outpt, needs repeat u/a and ucx that are negative, repeat u/a still 3+leuk est smoking cessation advised ETOH cessation advised PT/OT for strengthening, decrease fall risk VTE proph patient can follow up as outpatient Dr. Irving [phone] Status: Acute (2) Primary osteoarthritis of left hip Status: Acute (3) Avascular necrosis of femur head, left Status: Acute (4) Avascular necrosis of femur head, right Status: Acute (5) Vitamin D deficiency Status: Acute
[2018-07-19] MEDS: Tramadol 25 mg PO PRN (23:51)
[2018-07-20 07:00] LABS: BASO % 0.8 % (0.0-2.0); EOS # 0.1 K/uL (0.0-0.7); EOS % 1.8 % (0.0-4.0); LYMPH # 2.5 K/uL (1.0-4.3); LYMPH % 41.4 % (20.0-40.0); MEAN CELL VOLUME 88.9 fL (81.0-99.0); MEAN CORPUSCULAR HEMOGLOBIN 29.7 pg (27.0-31.0); MEAN CORPUSCULAR HGB CONC 33.5 g/dL (33.0-37.0); MEAN PLATELET VOLUME 9.6 fL (7.2-11.7); MONO # 0.6 K/uL (0.0-0.8); MONO % 9.4 % (0.0-10.0); NEUT # 2.8 K/uL (1.8-7.0); NEUT % 46.6 % (50.0-75.0); NRBC % 0.1 % (0.0-2.0); RBC 4.37 Mil/uL (3.80-5.20); RED CELL DISTRIBUTION WIDTH 13.8 % (11.5-14.5)
[2018-07-20 07:18] LABS: ALB/GLOB RATIO 0.9 (1.0-2.1); ALBUMIN 3.7 g/dL (3.5-5.0); ALT/SGPT 72 U/L (9-52); AST/SGOT 66 U/L (14-36); BLOOD UREA NITROGEN 21 mg/dL (7-17); CALCIUM 9.7 mg/dl (8.6-10.4); GFR NON-AFRICAN AMERICAN > 60
[2018-07-20] MEDS: Tramadol 25 mg PO PRN (10:09)
[2018-07-20] MEDS: Pantoprazole 40 mg EC Tab PO SCH (10:09)
[2018-07-20] MEDS: Enoxaparin 40 mg Syringe SC SCH (10:11)
--- NOTE | 2018-07-20 11:17 | CP.PCM.PN ---
Subjective - Date & Time of Evaluation Date of Evaluation: 07/20/18 Time of Evaluation: 09:20 - Subjective Subjective: Medicine progress note for Dr. Aranda's service Patient seen and examined. Patient reports pain slightly improved from yesterday. She is more comfortable sitting in chair. Tolerating diet well. Objective - Vital Signs/Intake and Output Vital Signs (last 24 hours): Temp Pulse Resp BP Pulse Ox 98.2 F 78 20 122/72 98 07/20/18 07:29 07/20/18 07:29 07/20/18 07:29 07/20/18 07:29 07/20/18 07:29 Intake and Output: 07/20/18 07/20/18 06:59 18:59 Intake Total 640 Balance 640 - Medications Medications: Current Medications Amlodipine Besylate (Norvasc) 10 mg PO DAILY [facility] Last Admin: 07/20/18 10:09 Dose: 10 mg Chlordiazepoxide (Librium) 25 mg PO Q8 PRN PRN Reason: Anxiety Enoxaparin Sodium (Lovenox) 40 mg SC DAILY [facility] Last Admin: 07/20/18 10:11 Dose: 40 mg Ergocalciferol (Drisdol 50,000 Intl Units Cap) 1 cap PO Q7D [facility] Folic Acid (Folic Acid) 1 mg PO DAILY [facility] Last Admin: 07/20/18 10:09 Dose: 1 mg Gabapentin (Neurontin) 300 mg PO DAILY [facility] Last Admin: 07/20/18 10:09 Dose: 300 mg Naproxen (Anaprox Ds) 550 mg PO Q12H PRN PRN Reason: Pain, moderate (4-7) Last Admin: 07/19/18 10:18 Dose: 550 mg Pantoprazole Sodium (Protonix Ec Tab) 40 mg PO DAILY [facility] Last Admin: 07/20/18 10:09 Dose: 40 mg Tramadol HCl (Ultram) 25 mg PO TID PRN PRN Reason: Pain, severe (8-10) Last Admin: 07/20/18 10:09 Dose: 25 mg - Labs Labs: 07/20/18 06:51 07/20/18 06:51 PT 12.5 SECONDS (9.7-12.2) H 07/14/18 02:05 INR 1.1 07/14/18 02:05 APTT 34 SECONDS (21-34) 07/14/18 02:05 - Constitutional Appears: No Acute Distress - Head Exam Head Exam: ATRAUMATIC, NORMOCEPHALIC - Eye Exam Eye Exam: EOMI - ENT Exam ENT Exam: Mucous Membranes Moist Additional comments: missing many teeth - Respiratory Exam Respiratory Exam: Clear to Ausculation Bilateral, NORMAL BREATHING PATTERN - Cardiovascular Exam Cardiovascular Exam: +S1, +S2 - GI/Abdominal Exam GI & Abdominal Exam: Soft, Normal Bowel Sounds. absent: Tenderness - Extremities Exam Extremities Exam: Normal Inspection. absent: Pedal Edema - Back Exam Additional comments: tenderness on palpation of SI joint area on left - Neurological Exam Neurological Exam: Alert, Awake - Psychiatric Exam Psychiatric exam: Normal Affect - Skin Skin Exam: Warm Assessment and Plan - Assessment and Plan (Free Text) Assessment: Chronic Right Hip Pain - s/p fall Hip/Pelvis X-Ray: No fracture or dislocation appreciated. Advanced hypertrophic and cystic osteoarthrosis -each hip - right greater than left. Intrinsic bilateral background hip dysplasia suspect. Secondary bilateral hip avascular necrosis possible Femur X-Ray: No acute fracture appreciated. Osseous hypertrophic changes and other findings as referenced above noted Pelvis CT: No evidence of acute displaced fracture nor dislocation. Significant degenerative osteoarthritis both hip joints right greater than left. Urinary bladder incompletely distended which presumably accounts for thick-walled appearance. The possibility of a cystitis/UTI not excluded. Clinical correlation recommended. Large bilateral hip joint effusions. Ortho, Dr. Irving is consulted. recommend outpt elective B/L hip surgery. Patient will be given referral for Dr. Irving upon discharge. Per ortho recs, patient needs to be on supplemental vitamin d with goal vit D above 40 prior to surgery Medications: * Naproxen 550mg PO q12h prn * Tramadol 25mg PO TID PRN. Urinary Tract Infection Ua positive on admission. Pt received 4 doses of rocephin from 07/14 to 07/17 Repeat UA from 07/18 positive for leukocyte esterase. Culture negative (07/18) will send patient to rehab with PO cipro Vitamin d Deficiency Ergocalciferol qweekly with goal of Vitamin D above 40 Prophylactic Care Lovenox 40mg SC daily Protonix 40mg PO daily PT eval/treat- recommend [facility] Disposition: patient discharged to [facility] on 07/19/18. Insurance authorization pending. All medical management per Dr. Aranda
[2018-07-20] MEDS: Naproxen 550 mg Tab PO PRN (21:28)
[2018-07-21] MEDS: Tramadol 25 mg PO PRN ×2 (02:12→11:28)
[2018-07-21 08:01] VITALS: BP 106/73; PULSE 73; TEMP 98.4; O2SAT 96
[2018-07-21] MEDS: Pantoprazole 40 mg EC Tab PO SCH (11:00)
[2018-07-21] MEDS: Enoxaparin 40 mg Syringe SC SCH (11:00)
--- NOTE | 2018-07-21 11:07 | CP.PCM.PN ---
Subjective - Date & Time of Evaluation Date of Evaluation: 07/21/18 Time of Evaluation: 11:04 - Subjective Subjective: PGY3 progress note for Dr. Aranda Pt seen and examind at bedside. No acute events overnight. Pt continues to c/ o CP, SOB, abd pain, N/V/D/C, F/c. Denies having any dysuria or increased urinary frequency. Objective - Vital Signs/Intake and Output Vital Signs (last 24 hours): Temp Pulse Resp BP Pulse Ox 98.4 F 73 20 106/73 96 07/21/18 07:54 07/21/18 07:54 07/21/18 07:54 07/21/18 07:54 07/21/18 07:54 Intake and Output: 07/21/18 07/21/18 06:59 18:59 Intake Total 540 Balance 540 - Medications Medications: Current Medications Amlodipine Besylate (Norvasc) 10 mg PO DAILY [facility] Last Admin: 07/20/18 10:09 Dose: 10 mg Chlordiazepoxide (Librium) 25 mg PO Q8 PRN PRN Reason: Anxiety Ciprofloxacin (Cipro) 500 mg PO DAILY [facility] PRN Reason: Protocol Enoxaparin Sodium (Lovenox) 40 mg SC DAILY [facility] Last Admin: 07/20/18 10:11 Dose: 40 mg Ergocalciferol (Drisdol 50,000 Intl Units Cap) 1 cap PO Q7D [facility] Folic Acid (Folic Acid) 1 mg PO DAILY [facility] Last Admin: 07/20/18 10:09 Dose: 1 mg Gabapentin (Neurontin) 300 mg PO DAILY [facility] Last Admin: 07/20/18 10:09 Dose: 300 mg Naproxen (Anaprox Ds) 550 mg PO Q12H PRN PRN Reason: Pain, moderate (4-7) Last Admin: 07/20/18 21:28 Dose: 550 mg Pantoprazole Sodium (Protonix Ec Tab) 40 mg PO DAILY [facility] Last Admin: 07/20/18 10:09 Dose: 40 mg Tramadol HCl (Ultram) 25 mg PO TID PRN PRN Reason: Pain, severe (8-10) Last Admin: 07/21/18 02:12 Dose: 25 mg - Labs Labs: 07/20/18 06:51 07/20/18 06:51 PT 12.5 SECONDS (9.7-12.2) H 07/14/18 02:05 INR 1.1 07/14/18 02:05 APTT 34 SECONDS (21-34) 07/14/18 02:05 - Constitutional Appears: Non-toxic, No Acute Distress - Head Exam Head Exam: ATRAUMATIC, NORMOCEPHALIC - ENT Exam ENT Exam: Mucous Membranes Moist - Respiratory Exam Respiratory Exam: Clear to Ausculation Bilateral. absent: Accessory Muscle Use , Rales, Rhonchi, Wheezes, Respiratory Distress - Cardiovascular Exam Cardiovascular Exam: REGULAR RHYTHM, +S1, +S2. absent: Gallop, Rubs, Murmur - GI/Abdominal Exam GI & Abdominal Exam: Soft, Normal Bowel Sounds. absent: Distended, Firm, Guarding, Rigid, Tenderness, Organomegaly - Extremities Exam Extremities Exam: absent: Pedal Edema, Tenderness Additional comments: B/L hip pain - Neurological Exam Neurological Exam: Alert, Awake, Oriented x3 - Psychiatric Exam Psychiatric exam: Normal Affect, Normal Mood - Skin Skin Exam: Dry, Intact, Normal Color, Warm Assessment and Plan - Assessment and Plan (Free Text) Assessment: Chronic Right Hip Pain - s/p fall Hip/Pelvis X-Ray: No fracture or dislocation appreciated. Advanced hypertrophic and cystic osteoarthrosis -each hip - right greater than left. Intrinsic bilateral background hip dysplasia suspect. Secondary bilateral hip avascular necrosis possible Femur X-Ray: No acute fracture appreciated. Osseous hypertrophic changes and other findings as referenced above noted Pelvis CT: No evidence of acute displaced fracture nor dislocation. Significant degenerative osteoarthritis both hip joints right greater than left. Urinary bladder incompletely distended which presumably accounts for thick-walled appearance. The possibility of a cystitis/UTI not excluded. Clinical correlation recommended. Large bilateral hip joint effusions. Ortho, Dr. Irving is consulted. recommend outpt elective B/L hip surgery. Patient will be given referral for Dr. Irving upon discharge. Per ortho recs, patient needs to be on supplemental vitamin d with goal vit D above 40 prior to surgery Medications: * Naproxen 550mg PO q12h prn * Tramadol 25mg PO TID PRN. Urinary Tract Infection Ua positive on admission. Pt received 4 doses of rocephin from 07/14 to 07/17 Repeat UA from 07/18 positive for leukocyte esterase. Culture negative (07/18) Started patient on cipro 500 mg po BID for a total of 7 days Vitamin d Deficiency Ergocalciferol qweekly with goal of Vitamin D above 40 Prophylactic Care Lovenox 40mg SC daily Protonix 40mg PO daily PT eval/treat- recommend [facility] Disposition: patient discharged to [facility] on 07/19/18. Insurance authorization pending. All medical management per Dr. Aranda Patient is stable for discharge to rehab facility when bed is available per Dr. Aranda. Patient is to resume home medications and start ciprofloxacin 500 mg po BID x 7 days for urinary tract infection. Patient is to follow up with Dr. Aranda and Dr. Irving upon discharge. Patient is to return to the ER if symptoms reoccur or worsen. This was explained to the patient who understands and agrees.
[2018-07-21 11:48] LABS: BASO % 0.7 % (0.0-2.0); EOS # 0.1 K/uL (0.0-0.7); HEMOGLOBIN 13.4 g/dL (11.0-16.0); LYMPH # 2.1 K/uL (1.0-4.3); LYMPH % 33.5 % (20.0-40.0); MEAN CELL VOLUME 89.2 fL (81.0-99.0); MEAN CORPUSCULAR HGB CONC 33.6 g/dL (33.0-37.0); MEAN PLATELET VOLUME 10.2 fL (7.2-11.7); MONO # 0.6 K/uL (0.0-0.8); NEUT # 3.6 K/uL (1.8-7.0); NEUT % 55.8 % (50.0-75.0); NRBC % 0.1 % (0.0-2.0); RBC 4.46 Mil/uL (3.80-5.20); WHITE BLOOD COUNT 6.4 K/uL (4.8-10.8)
[2018-07-21 12:23] LABS: ALB/GLOB RATIO 0.9 (1.0-2.1); ALBUMIN 4.1 g/dL (3.5-5.0); ALT/SGPT 75 U/L (9-52); AST/SGOT 67 U/L (14-36); BLOOD UREA NITROGEN 20 mg/dL (7-17); CALCIUM 9.3 mg/dl (8.6-10.4); GFR NON-AFRICAN AMERICAN > 60
--- NOTE | 2018-07-22 07:23 | DS ---
Copied To: Milton Aranda MD Attending MD: Milton Aranda MD The patient was complaining of weakness, fatigue, tiredness, hip pain . The patient was placed on bedrest, UTI . To be discharged to follow up as outpatient. Milton Aranda MD
== END 2018-07-21 16:13 | DRG 247 ==
LOC: C.ER 23:40 → OBSVTOIN 07-14 05:43 → C.9E 07-14 05:43 → UNDOADMOB 07-14 06:08 → C.9E 07-14 06:08 → C.3T 07-14 17:24 → OBSVTOIN 07-15 05:43 → INTOOBSV 07-15 05:43
PROVIDERS: ADMIT Internal Medicine Pulmonary Disease; ATTEND Internal Medicine Pulmonary Disease
DX: M25.551 Pain in right hip (principal); G89.11 Acute pain due to trauma; M16.0 Bilateral primary osteoarthritis of hip; N39.0 Urinary tract infection, site not specified; M87.051 Idiopathic aseptic necrosis of right femur; M87.052 Idiopathic aseptic necrosis of left femur; G62.1 Alcoholic polyneuropathy; G89.29 Other chronic pain; I10 Essential (primary) hypertension; J45.909 Unspecified asthma, uncomplicated; W19.XXXA Unspecified fall, initial encounter; R29.6 Repeated falls; Y93.01 Activity, walking, marching and hiking; H40.9 Unspecified glaucoma; F10.10 Alcohol abuse, uncomplicated; F17.210 Nicotine dependence, cigarettes, uncomplicated; Z87.440 Personal history of urinary (tract) infections

== ENCOUNTER 2018-08-03 17:24 | Emergency (ER) | payer OTHER ==
--- NOTE | 2018-08-03 19:32 | C.PDOC ---
History Of Present Illness 67 year old female is brought to the ED by EMS for evaluation of right lower back pain and leg pain which began after she sustained a fall today. Patient reports history of frequent falls. She denies head injury, LOC, abdominal pain, dysuria, hematuria, urinary/bowel incontinence, extremity numbness/weakness. Time Seen by Provider: 08/03/18 18:21 Chief Complaint (Nursing): Lower Extremity Problem/Injury History Per: Patient, EMS History/Exam Limitations: no limitations Onset/Duration Of Symptoms: Hrs Current Symptoms Are (Timing): Still Present Additional History Per: Patient, EMS Past Medical History Reviewed: Historical Data, Nursing Documentation, Vital Signs Vital Signs: Last Vital Signs Temp 98.3 F 08/04/18 06:05 Pulse 81 08/04/18 06:05 Resp 20 08/04/18 06:05 BP 109/63 08/04/18 06:05 Pulse Ox 96 08/04/18 06:05 - Medical History PMH: Arthritis (B/L HIP), HTN Surgical History: No Surg Hx Family History: States: Unknown Family Hx - Social History Hx Tobacco Use: Yes (Light smoker <10 cigarettes daily) Hx Alcohol Use: Yes Hx Substance Use: Yes - Immunization History Hx Tetanus Toxoid Vaccination: No Hx Influenza Vaccination: No Hx Pneumococcal Vaccination: No Review Of Systems Gastrointestinal: Negative for: Abdominal Pain Genitourinary: Negative for: Dysuria, Incontinence Musculoskeletal: Positive for: Back Pain (right, lower ), Leg Pain Neurological: Negative for: Weakness, Numbness Physical Exam - Physical Exam Appears: Non-toxic, No Acute Distress Skin: Normal Color, Warm, Dry Head: Atraumatic, Normacephalic Eye(s): bilateral: Normal Inspection Oral Mucosa: Moist Neck: Normal ROM, Supple Chest: Symmetrical, No Deformity, No Tenderness Cardiovascular: Rhythm Regular Respiratory: Normal Breath Sounds Back: Other (mild tenderness to right lumbosaccral region ) Extremity: Normal ROM (bilateral hips ), Tenderness (mild, to lateral aspect of right thigh), Capillary Refill (less than 2 seconds ), No Other (tenderness to knee, ankle and foot ) Extremity: Left: Hips Non-Tender, Right: Hips Non-Tender Pulses: Left Dorsalis Pedis: Normal, Right Dorsalis Pedis: Normal Neurological/Psych: Oriented x3, Normal Speech, Normal Cognition ED Course And Treatment O2 Sat by Pulse Oximetry: 99 (on RA) Pulse Ox Interpretation: Normal Medical Decision Making Medical Decision Making: Impression: 67 year old female with right lower back pain and leg pain after fall Plan: * hip XR * Tylenol PO * reassess and disposition Progress: Hip XR ordered and reviewed shows no fracture. Patient given Tylenol PO. On reassessment, patient is resting comfortably, showing no signs of distress. Patient uses walker to ambulate. Patient transportation arrangements made to take patient home. Patient is stable for discharge and is advised to follow up with her PMD within 1-2 days for further evaluation. Disposition Counseled Patient/Family Regarding: Diagnosis, Need For Followup, Rx Given - Disposition Referrals: Milton Aranda MD [Staff Provider] - Disposition: HOME/ ROUTINE Disposition Time: 19:30 Condition: STABLE Additional Instructions: Follow up with your primary medical doctor or clinic in 2-5 days for further evaluation. Prescriptions: Acetaminophen [Acetaminophen Extra Strength] 500 mg PO Q8 #30 tablet Ibuprofen [Motrin] 600 mg PO Q8 #30 tab Instructions: Preventing Falls in the Older Adult Forms: [employer] (Bhutanese) - POA Present On Arrival: None - Clinical Impression Clinical Impression: Contusion of leg, right, Fall - PA / SUPERVISOR PHOTOC[employer]ITION / Resident Statement MD/DO has reviewed & agrees with the documentation as recorded. - Scribe Statement The provider has reviewed the documentation as recorded by the Scribe (Natividad Haines) All medical record entries made by the Scribe were at my direction and personally dictated by me. I have reviewed the chart and agree that the record accurately reflects my personal performance of the history, physical exam, medical decision making, and the department course for this patient. I have also personally directed, reviewed, and agree with the discharge instructions and disposition.
[2018-08-04 06:05] VITALS: BP 109/63; PULSE 81; RESP 20; TEMP 98.3
--- NOTE | 2018-08-04 09:21 | RAD ---
Date of service: 08/03/2018 PROCEDURE: HISTORY: pain s.p fall COMPARISON: None TECHNIQUE: AP pelvis and frog's leg view. FINDINGS: No fracture or dislocation appreciated. Each femoral head is misshapen right more so than left Superolateral bilateral hip joint space narrowing with bilateral subchondral sclerosis and cystic change present. Each superolateral femoral head is flattened. Exuberant osteo arthrosis femoral heads and acetabular fossa Sacroiliac and pubic symphyseal joints unremarkable. Incidental multiple bilateral hemipelvic phleboliths. IMPRESSION: No fracture or dislocation appreciated. Advanced osteoarthrosis-bilateral right greater than left. Consider superimposed bilateral avascular necrosis. Comments: Study marked for PA review .
[2018-08-04 11:20] VITALS: O2SAT 99
== END 2018-08-04 07:31 | disposition home or self-care (01) ==
LOC: C.ER 17:24
DX: S80.11XA Contusion of right lower leg, initial encounter (principal); W19.XXXA Unspecified fall, initial encounter

== ENCOUNTER 2018-08-07 16:16 | Emergency (ER) | payer MEDICARE, OTHER ==
[2018-08-07 16:23] VITALS: BMI 19.8
[2018-08-07 16:35] VITALS: RESP 18; TEMP 99.5
--- NOTE | 2018-08-07 17:09 | C.PDOC ---
History Of Present Illness 67 year old female presents to the ER for her chronic hip pain and states she is scheduled for hip replacement sx. States Dr. Aranda is setting it up for her. Currently she is complaining of pain to her right leg and right lower back. Denies weakness or numbness. Denies any new falls since last ED visit. States is taking Gabapentin for her chronic pain. Time Seen by Provider: 08/07/18 16:27 Chief Complaint (Nursing): Lower Extremity Problem/Injury Past Medical History Vital Signs: Last Vital Signs Temp 99.5 F 08/07/18 16:23 Pulse 110 H 08/07/18 16:23 Resp 18 08/07/18 16:23 BP 96/62 L 08/07/18 16:23 Pulse Ox 97 08/07/18 17:39 - Medical History PMH: Arthritis (B/L HIP), HTN Family History: States: Unknown Family Hx - Social History Hx Tobacco Use: Yes (Light smoker <10 cigarettes daily) Hx Alcohol Use: Yes Hx Substance Use: Yes - Immunization History Hx Tetanus Toxoid Vaccination: No Hx Influenza Vaccination: No Hx Pneumococcal Vaccination: No Review Of Systems Except As Marked, All Systems Reviewed And Found Negative. Constitutional: Negative for: Fever Cardiovascular: Negative for: Chest Pain Physical Exam - Physical Exam Additional Physical Exam Comments: Constitutional: No acute distress. Head: Normocephalic. Atraumatic. Eyes: PERRL. ENT: Moist mucous membranes. Neck: Supple. Cardiovascular: Regular rate. Radial pulse 2+ bilaterally. Chest: No tenderness. Respiratory: Clear to auscultation bilaterally. GI: Soft. Nontender. Nondistended. Back: No CVA tenderness. Musculoskeletal: No deformity. Skin: No rash. Neurologic: Alert, no focal deficit. Walking with walker. ED Course And Treatment O2 Sat by Pulse Oximetry: 97 Medical Decision Making Medical Decision Making: Morphine IM administered. Dr. 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 Irving. I informed patient of this and instructed to f/u with Dr. Irving. Disposition - Disposition Referrals: Channing Irving III, MD [Staff Provider] - Disposition: HOME/ ROUTINE Disposition Time: 17:08 Condition: STABLE Instructions: Peripheral Neuropathy Forms: [employer] (Korean) - Clinical Impression Clinical Impression: Leg pain
[2018-08-07] MEDS ORDERED: Morphine 4 MG/ML VIAL ONE (17:45)
[2018-08-07 17:49] VITALS: BP 115/78; PULSE 99
[2018-08-07 17:51] VITALS: O2SAT 97
== END 2018-08-07 18:37 | disposition home or self-care (01) ==
LOC: C.ER 16:16
DX: M79.604 Pain in right leg (principal)
CPT/HCPCS: 96372; 99283; J2270

== ENCOUNTER 2018-08-08 14:04 | Emergency (ER) | payer MEDICAID, OTHER ==
[2018-08-08 14:05] VITALS: BMI 19.8
[2018-08-08 14:15] VITALS: BP 119/74; PULSE 103; RESP 18; TEMP 99; O2SAT 99
--- NOTE | 2018-08-08 14:46 | C.PDOC ---
History Of Present Illness 67 year old female presents to ED for evaluation of right hip pain that started today. Patient has multiple ER visits since 07/14/18 and was last seen 08/07/18. Patient is on Neurontin but "it doesn't work". Received Percocet Test in ER " but it didn't work". States she tried to follow up with her orthopedic "but they never answer the phone". Patient was referred for pain management to an unknown office by PMD "but they don't take my insurance". Patient denies new symptoms prior to ER visit, fever, vomiting, nausea, and other associated symptoms. RECUR CHRONIC R HIP PAIN TODAY. MULT ER VISITS SINCE 07/14, LAST SEEN 08/07. ON NEURONTIN "IT DOESNT WORK". RECEIVED PERCOCET YEST IN ER "BUT IT DIDNT' WORK". PS TRIED TO FU IN ORTHO "BUT THEY NEVER ANSEWR THE PHONE". GIVEN PAIN MGMT REFERRAL UNK OFFICE BY PMD "BUT THEY DON'T TAKE MY INSURANCE". NO NEW SX SINCE PRIOR ER VISIT. EXAM NONTOXIC NAD EXT ATRAUM ROM W PAIN. GAIT AMBUL W WALKER NEURO NO FOCAL DEF. REMAINDER NEG Time Seen by Provider: 08/08/18 14:20 Chief Complaint (Nursing): Lower Extremity Problem/Injury History Per: Patient History/Exam Limitations: no limitations Onset/Duration Of Symptoms: Hrs Current Symptoms Are (Timing): Still Present Past Medical History Reviewed: Historical Data, Nursing Documentation, Vital Signs Vital Signs: Last Vital Signs Temp 99.0 F 08/08/18 14:14 Pulse 103 H 08/08/18 14:14 Resp 18 08/08/18 14:14 BP 119/74 08/08/18 14:14 Pulse Ox 99 08/08/18 15:24 - Medical History PMH: Arthritis (B/L HIP), COPD, HTN Family History: States: Unknown Family Hx - Social History Hx Tobacco Use: Yes (Light smoker <10 cigarettes daily) Hx Alcohol Use: Yes Hx Substance Use: Yes - Immunization History Hx Tetanus Toxoid Vaccination: No Hx Influenza Vaccination: No Hx Pneumococcal Vaccination: No Review Of Systems Except As Marked, All Systems Reviewed And Found Negative. Constitutional: Negative for: Fever, Chills Gastrointestinal: Negative for: Nausea, Vomiting Musculoskeletal: Positive for: Other (Right hip pain) Physical Exam - Physical Exam Appears: Non-toxic, No Acute Distress Skin: Normal Color, Warm, Dry Head: Atraumatic, Normacephalic Eye(s): bilateral: Normal Inspection Extremity: Normal ROM (atraumatic, range of motion with pain) Pulses: Left Femoral: Normal, Right Femoral: Normal Neurological/Psych: Oriented x3, Normal Speech Gait: Steady (ambulates with walker) ED Course And Treatment O2 Sat by Pulse Oximetry: 99 (RA) Pulse Ox Interpretation: Normal Progress - Re-Evaluation Re-evaluation Note: 08/08/18 14:50 [facility] AND [facility] GIVEN. COPY DEPT PAIN POLICY GIVEN - Data Reviewed Data Reviewed: Old records Medical Decision Making Medical Decision Making: Plan: --HYDROmorphone Disposition Counseled Patient/Family Regarding: Diagnosis, Need For Followup - Disposition Referrals: PAIN,MGMT [Other] Disposition: HOME/ ROUTINE Disposition Time: 14:48 Condition: IMPROVED Additional Instructions: FOLLOW UP EITHER [facility] FOLLOW UP ORTHOPEDICS PREVIOUSLY ADVISED Instructions: Chronic Pain (DC) Forms: [employer] (East Timorese) - Clinical Impression Clinical Impression: Chronic pain disorder
== END 2018-08-08 16:45 | disposition home or self-care (01) ==
LOC: C.ER 14:04
DX: G89.29 Other chronic pain (principal); I10 Essential (primary) hypertension; J44.9 Chronic obstructive pulmonary disease, unspecified; F17.210 Nicotine dependence, cigarettes, uncomplicated

== ENCOUNTER 2018-08-09 14:02 | Observation (INO) | payer MEDICAID, MEDICARE, OTHER ==
[2018-08-09 14:02] VITALS: BMI 19.8
[2018-08-09 14:42] LABS: BASO # 0.1 K/uL (0.0-0.2); BASO % 0.8 % (0.0-2.0); EOS % 0.6 % (0.0-4.0); HEMOGLOBIN 12.6 g/dL (11.0-16.0); LYMPH # 2.6 K/uL (1.0-4.3); MEAN CELL VOLUME 89.8 fL (81.0-99.0); MEAN CORPUSCULAR HEMOGLOBIN 29.8 pg (27.0-31.0); MEAN CORPUSCULAR HGB CONC 33.2 g/dL (33.0-37.0); MEAN PLATELET VOLUME 9.4 fL (7.2-11.7); MONO # 0.5 K/uL (0.0-0.8); MONO % 6.3 % (0.0-10.0); NEUT # 5.3 K/uL (1.8-7.0); NEUT % 62.3 % (50.0-75.0); NRBC % 0.1 % (0.0-2.0); RBC 4.21 Mil/uL (3.80-5.20); RED CELL DISTRIBUTION WIDTH 14.4 % (11.5-14.5); WHITE BLOOD COUNT 8.5 K/uL (4.8-10.8)
[2018-08-09 14:50] LABS: INR 1.1; PROTHROMBIN TIME 11.8 SECONDS (9.7-12.2)
[2018-08-09 15:09] LABS: ALBUMIN 3.9 g/dL (3.5-5.0); ALT/SGPT 75 U/L (9-52); AST/SGOT 60 U/L (14-36); BLOOD UREA NITROGEN 15 mg/dL (7-17); CALCIUM 9.6 mg/dl (8.6-10.4); GFR NON-AFRICAN AMERICAN > 60
--- NOTE | 2018-08-09 15:14 | RAD ---
HISTORY: SOB COMPARISON: Chest x-ray performed 07/14/18 TECHNIQUE: Chest, one view. FINDINGS: LUNGS: Right apical pleural parenchymal scarring/fibrosis. Scattered probable calcified granulomas. Please note that chest x-ray has limited sensitivity for the detection of pulmonary masses. PLEURA: No significant pleural effusion identified. No definite pneumothorax . CARDIOVASCULAR: Heart size appears within normal limits. Atherosclerotic calcifications of the aorta. OSSEOUS STRUCTURES: Osseous demineralization. Degenerative changes. VISUALIZED UPPER ABDOMEN: Unremarkable. OTHER FINDINGS: None. IMPRESSION: Right apical pleural parenchymal scarring/fibrosis. Scattered probable calcified granulomas.
[2018-08-09] MEDS ORDERED: Aspirin 325 mg EC Tablets PO STA (15:35)
--- NOTE | 2018-08-09 15:36 | C.PDOC ---
History Of Present Illness 67 y/o female, w/PMhx of HTN, presents to the ER complaining of bilateral hip pain which has been present for the past 2 days. Patient states that she was diagnosed with DJD of the bilateral hips and she was admitted in the hospital on 07/14/18. Patient reports that she was supposed to schedule an appointment with for a hip replacement, however she has been unsuccessful. She is also complaining of chest pain which has been present since yesterday. Denies having new falls. Of note, patient's PMD is . Time Seen by Provider: 08/09/18 14:10 Chief Complaint (Nursing): Chest Pain History Per: Patient History/Exam Limitations: no limitations Onset/Duration Of Symptoms: Days Current Symptoms Are (Timing): Still Present Severity: Moderate Past Medical History Reviewed: Historical Data, Nursing Documentation, Vital Signs - Medical History PMH: Arthritis (B/L HIP), COPD, HTN Other Surgeries: Hx of surgeries Family History: States: No Known Family Hx - Social History Hx Tobacco Use: Yes (Light smoker <10 cigarettes daily) Hx Alcohol Use: Yes Hx Substance Use: Yes - Immunization History Hx Tetanus Toxoid Vaccination: Yes Hx Influenza Vaccination: Yes Hx Pneumococcal Vaccination: No Review Of Systems Except As Marked, All Systems Reviewed And Found Negative. Constitutional: Negative for: Fever, Chills Cardiovascular: Positive for: Chest Pain Respiratory: Negative for: Cough, Shortness of Breath Musculoskeletal: Positive for: Other (bilateral hip pain) Neurological: Negative for: Weakness, Numbness Physical Exam - Physical Exam Appears: Non-toxic, No Acute Distress Skin: Normal Color, Warm, Dry Head: Atraumatic, Normacephalic Eye(s): bilateral: Normal Inspection Nose: Normal Oral Mucosa: Moist Neck: Supple Chest: Symmetrical Cardiovascular: Rhythm Regular Respiratory: Normal Breath Sounds, No Rales, No Rhonchi, No Wheezing Gastrointestinal/Abdominal: Normal Exam, Soft, No Tenderness, No Guarding, No Rebound Extremity: Normal ROM, Tenderness (tenderness to bilateral hips ( L>R)) Neurological/Psych: Oriented x3, Normal Speech ED Course And Treatment - Laboratory Results Result Diagrams: 08/09/18 14:38 08/09/18 14:38 ECG: Interpreted By Me, Viewed By Me ECG Rhythm: Sinus Rhythm Interpretation Of ECG: NSR with normal intervals, normal axises, and no ST/ T wave abnormalities Rate From EC Medical Decision Making Medical Decision Making: Assessment: Chest Pain Plan: --Labs --EKG --CXR --Aspirin PO Disposition Discussed With : Milton Aranda Doctor Will See Patient In The: Hospital Counseled Patient/Family Regarding: Studies Performed, Diagnosis - Disposition Disposition: HOSPITALIZED Disposition Time: 15:44 Condition: FAIR - Clinical Impression Clinical Impression: Chest pain - Scribe Statement The provider has reviewed the documentation as recorded by the Renita Zhao Provider Attestation: All medical record entries made by the Jenaroibgrant were at my direction and personally dictated by me. I have reviewed the chart and agree that the record accurately reflects my personal performance of the history, physical exam, medical decision making, and the department course for this patient. I have also personally directed, reviewed, and agree with the discharge instructions and disposition.
[2018-08-09] MEDS ORDERED: Aspirin 325 mg EC Tablets PO ONE (15:40)
[2018-08-09] MEDS ORDERED: Potassium Chloride 20 mEq ER Tab PO ONE ×3 (15:56→16:46)
[2018-08-09] MEDS ORDERED: Naproxen 550 mg Tab PO PRN (16:04)
[2018-08-09] MEDS ORDERED: Tramadol 25 mg PO PRN (16:04)
--- NOTE | 2018-08-09 16:36 | CP.PCM.PN ---
Subjective - Date & Time of Evaluation Date of Evaluation: 08/09/18 Time of Evaluation: 16:26 - Subjective Subjective: Patient is a 67 year old female with a history of degenerative joint disease, COPD, Hepatitis C, and vitamin D deficiency, who presents with complaints of bilateral hip and knee pain and chest tightness. She has had bilateral hip and knee pain for more than one year and has been evaluated by Dr. Irving in June 2018. She states she has discussed having a THR with Dr. Irving, but has not scheduled it yet. She takes Gabapentin which relieves some of her discomfort. She says her pain is worse with ambulation, and slightly better when at rest, and she walks with a walker. She denies recent trauma, falls, or injury. The patient also complains of chest tightness for one day. She states she previously was using an inhaler for COPD, but has not used one for approximately 2 weeks. She denies chest pain, palpitations, shortness of breath , cough, dizziness, nausea, vomiting, abdominal pain, fevers, dysuria, hematuria , constipation, diarrhea. PMD: Dr. 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 Lives alone in . Unemployed. Allergies: NKDA Medications: Neurontin, Amlodipine. Objective - Medications Medications: Current Medications Amlodipine Besylate (Norvasc) 10 mg PO DAILY [facility] Folic Acid (Folic Acid) 1 mg PO DAILY [facility] Gabapentin (Neurontin) 300 mg PO DAILY [facility] Heparin Sodium (Porcine) (Heparin) 5,000 units SC Q8 [facility] Ibuprofen (Motrin Tab) 400 mg PO Q6 PRN PRN Reason: Pain, Mild (1-3) Ketorolac Tromethamine (Toradol) 15 mg IVP Q6 PRN PRN Reason: Pain, moderate (4-7) Lidocaine (Lidoderm) 1 ea TD DAILY [facility] Tramadol HCl (Ultram) 25 mg PO TID PRN PRN Reason: Pain, severe (8-10) - Labs Labs: 08/09/18 14:38 08/09/18 14:38 PT 11.8 SECONDS (9.7-12.2) 08/09/18 14:38 INR 1.1 08/09/18 14:38 APTT 30 SECONDS (21-34) 08/09/18 14:38 - Constitutional Appears: Non-toxic, No Acute Distress - Head Exam Head Exam: ATRAUMATIC, NORMAL INSPECTION, NORMOCEPHALIC - Eye Exam Eye Exam: EOMI, PERRL - ENT Exam ENT Exam: Mucous Membranes Moist - Respiratory Exam Respiratory Exam: Decreased Breath Sounds, NORMAL BREATHING PATTERN. absent: Rales, Rhonchi, Wheezes, Respiratory Distress - Cardiovascular Exam Cardiovascular Exam: REGULAR RHYTHM, +S1, +S2. absent: Bradycardia, Tachycardia , Murmur - GI/Abdominal Exam GI & Abdominal Exam: Soft, Normal Bowel Sounds. absent: Distended, Firm, Tenderness, Mass - Extremities Exam Extremities Exam: Pedal Edema. absent: Full ROM (decreased ROM R>L due to pain in the knees and hips.), Tenderness Additional comments: Crepitus noted in knees b/l. Decreased ROM of bilateral LE due to hip and knee pain; Pain with palpation of the right lateral hip. - Neurological Exam Neurological Exam: Alert, Awake, Oriented x3 - Psychiatric Exam Psychiatric exam: Normal Affect, Normal Mood - Skin Skin Exam: Dry, Intact, Normal Color, Warm Assessment and Plan - Assessment and Plan (Free Text) Assessment: Chest Tightness - Likely secondary to COPD, smoking history - R/o cardiac origin, admitted to telemetry - Troponinx1: negative; EKG sinus tachycardia at 106bpm - F/u troponins and ekgs x2 - Chest xray: right apical pleural parenchymal scarring/fibrosis; scatter probable calcified granulomas. - HgbA1c: f/u - Lipid panel: f/u - TSH/Free T4: f/u - Continue to monitor - Duonebs Q6prn - Spiriva 2 INH daily Degenerative Joint Disease Bilateral Hip and Knee pain - Orthopedics consulted, Dr. Irving. Help appreciated * Of note, during previous admission in , Dr. Irving recommened outpatient elective bilateral hip surgery. Patient was given referral, but stated she has not been able to make an appointment yet. Dr. Irving also requested that the patient takes Vitamin D to achieve a vitamin D level greater than 40. Will recheck Vitamin D- f/u - Ibuprofen 400mg PO Q6 prn for mild pain - Toradol 15mg IV Q6 prn for moderate pain - Ultram 25mg PO TID prn for severe pain - Lidoderm patch daily Imaging from previous admission in 06/2018: * Hip/Pelvis X-Ray: No fracture or dislocation appreciated. Advanced hypertrophic and cystic osteoarthrosis -each hip - right greater than left. Intrinsic bilateral background hip dysplasia suspect. Secondary bilateral hip avascular necrosis possible * Femur X-Ray: No acute fracture appreciated. Osseous hypertrophic changes and other findings as referenced above noted * Pelvis CT: No evidence of acute displaced fracture nor dislocation. Significant degenerative osteoarthritis both hip joints right greater than left. Urinary bladder incompletely distended which presumably accounts for thick -walled appearance. The possibility of a cystitis/UTI not excluded. Clinical correlation recommended. Large bilateral hip joint effusions. HTN - Continue home medication: Amlodipine 10mg PO daily - Continue to monitor Tobacco Abuse - Nicoderm patch Polysubstance abuse - Serum Alcohol: f/u - UDS: f/u - Folic acid 1mg po daily - Monitor for signs of withdrawal. Prophylaxis - DVT: Heparin 5000u SC Q8h - GI: not indicated - [facility] Diet - PT All management per Dr. Aranda.
[2018-08-09] MEDS: Lidocaine 5% Patch TD SCH (16:43)
[2018-08-09] MEDS ORDERED: Lidocaine 5% Patch TD ONE (16:44)
[2018-08-09] MEDS ORDERED: Albuterol-Ipratrop 3 mg / 0.5 (3 ml) UD INH PRN (17:00)
[2018-08-09 17:08] LABS: T4 9.95 ug/dL (5.5-11.0)
[2018-08-09 17:48] VITALS: RESP 20
[2018-08-09 18:57] LABS: BARBITURATES, UR NEGATIVE (NEGATIVE); BENZODIAZEPINES, UR NEGATIVE (NEGATIVE); PHENCYCLIDINE, UR NEGATIVE (NEGATIVE)
[2018-08-09 19:06] LABS: SQUAMOUS EPITHIAL 2 /hpf (0-5); URINE BACTERIA RARE (<OCC); URINE BILIRUBIN NEGATIVE (NEGATIVE); URINE BLOOD 1+ (NEGATIVE); URINE CALCIUM OXALATE CRYSTALS MOD /hpf (<OCC); URINE CLARITY Hazy (Clear); URINE COLOR Amber (YELLOW); URINE GLUCOSE (UA) 3+ mg/dL (Normal); URINE LEUKOCYTE ESTERASE 3+ Leu/uL (Negative); URINE PROTEIN 1+ mg/dL (NEGATIVE)
[2018-08-09 19:09] LABS: OPIATES, UR POSITIVE (NEGATIVE)
[2018-08-09 21:48] LABS: CK-MB 0.97 ng/mL (0.0-3.38)
[2018-08-10 04:16] LABS: CK-MB 0.94 ng/mL (0.0-3.38)
[2018-08-10] MEDS ORDERED: Tiotropium 18 mcg Cap For Inhalation INH SCH (08:00)
--- NOTE | 2018-08-10 08:22 | CP.PCM.CON ---
History of Present Illness - History of Present Illness History of Present Illness: Orthopedic consultation Dr. Irving 67F known to service with B hip DJD severe R>L. Patient states the pain is really bad especially in her right hip and she came to the ED. Denies any recent trauma or falls. She says that when she was in the intermediate before, they were supposed to arrange transportation and appt to Dr. Irving's office, but she never went. She says she called the office and couldn't get in touch with them herself. Patient admits to drinking, but says she has not used any drugs since 2005 and has been off methadone since January 2018. She says she was given shot of pain medicine and percocet in the ED before. Smoking 5 cigarettes per day. Smoking cessation advised. Patient presented to ED with same complaint 08/03/18, 08/05, 08/07, 08/08, 08/09 PMH: COPD, +Hep C, smoker, +daily ETOH use PSH: glaucoma Review of Systems - Review of Systems All systems: reviewed and no additional remarkable complaints except - Constitutional Additional comments: n ofever, chills - Musculoskeletal Musculoskeletal: As Per HPI - Hematologic/Lymphatic Hematologic: absent: As Per HPI, Easy Bleeding, Easy Bruising, Lymphadenopathy, Other Past Patient History - Infectious Disease Hx of Infectious Diseases: None - Past Medical History & Family History Past Medical History?: Yes Past Family History: Reviewed and not pertinent - Past Social History Smoking Status: Light Smoker < 10 Cigarettes Daily - CARDIAC Hx Hypertension: Yes - PULMONARY Hx Chronic Obstructive Pulmonary Disease (COPD): Yes - HEMATOLOGICAL/ONCOLOGICAL Hx Blood Disorders: Yes Hx Hepatitis C: Yes - MUSCULOSKELETAL/RHEUMATOLOGICAL Hx Arthritis: Yes (B/L HIP) - GENITOURINARY/GYNECOLOGICAL Hx Genitourinary Disorders: Yes Hx Urinary Tract Infection: Yes - PSYCHIATRIC Hx Substance Use: Yes - SURGICAL HISTORY Hx Surgeries: Yes Hx Eye Surgery: Yes (glaucoma right eye) - ANESTHESIA Hx Anesthesia: Yes Hx Anesthesia Reactions: No Hx Malignant Hyperthermia: No Meds Home Medications: Home Medication List Medication Instructions Recorded Confirmed Type Ciprofloxacin [Cipro] 500 mg PO BID #14 tab 08/10/18 Rx RX: Folic Acid 1 mg PO DAILY tab 08/10/18 Rx RX: Lidocaine 5% 1 appl EXT DAILY #35 gm 08/10/18 Rx RX: Nicotine 21 mg/24 hr [Nicoderm 1 patch TD DAILY patch 08/10/18 Rx Cq] RX: Tiotropium [place] Inhaler 1 inhaler INH ONCE #1 inhaler 08/10/18 Rx [Spiriva Inhalation Handihaler Device] RX: Tiotropium [Spiriva] 18 mcg INH RQ24 #14 cap 08/10/18 Rx RX: amLODIPine [Norvasc] 10 mg PO DAILY #14 tab 08/10/18 Rx Allergies/Adverse Reactions: Allergies Allergy/AdvReac Type Severity Reaction Status Date / Time No Known Allergies Allergy Verified 08/09/18 14:19 - Medications Medications: Current Medications Albuterol/Ipratropium (Duoneb 3 Mg/0.5 Mg (3 Ml) Ud) 3 ml INH RQ6 PRN PRN Reason: Shortness of Breath Amlodipine Besylate (Norvasc) 10 mg PO DAILY [facility] Folic Acid (Folic Acid) 1 mg PO DAILY [facility] Gabapentin (Neurontin) 300 mg PO DAILY [facility] Heparin Sodium (Porcine) (Heparin) 5,000 units SC Q8 [facility] Last Admin: 08/10/18 06:01 Dose: 5,000 units Ibuprofen (Motrin Tab) 400 mg PO Q6 PRN PRN Reason: Pain, Mild (1-3) Ketorolac Tromethamine (Toradol) 15 mg IVP Q6 PRN PRN Reason: Pain, moderate (4-7) Last Admin: 08/09/18 21:24 Dose: 15 mg Lidocaine (Lidoderm) 1 ea TD DAILY [facility] Last Admin: 08/09/18 16:43 Dose: 1 ea Nicotine (Nicoderm Cq) 1 patch TD DAILY [facility] Tiotropium [place] (Spiriva) 18 mcg INH RQ24 [facility] Tramadol HCl (Ultram) 25 mg PO TID PRN PRN Reason: Pain, severe (8-10) Last Admin: 08/10/18 02:16 Dose: 25 mg Physical Exam - Constitutional Appears: Well, No Acute Distress - Head Exam Head Exam: ATRAUMATIC - Extremities Exam Additional comments: calves ssoft NT neg homans +ROM ankle/toes, sensation intact +DP/PT pulses - Expanded Lower Extremities Exam Right Hip exam: shortening, tenderness Ankle exam: FULL ROM, NORMAL INSPECTION - Neurological Exam Neurological exam: Alert, Oriented x3 - Psychiatric Exam Psychiatric exam: Normal Affect, Normal Mood - Skin Skin Exam: Dry, Intact, Normal Color, Warm Results - Vital Signs Recent Vital Signs: Last Vital Signs Temp 98.5 F 08/10/18 04:20 Pulse 72 08/10/18 04:23 Resp 20 08/10/18 04:20 BP 125/86 08/10/18 04:20 Pulse Ox 96 08/10/18 04:20 - Labs Result Diagrams: 08/09/18 14:38 08/09/18 14:38 Labs: Laboratory Results - last 24 hr 08/09/18 08/09/18 08/09/18 14:38 14:38 14:38 WBC 8.5 RBC 4.21 Hgb 12.6 Hct 37.9 MCV 89.8 MCH 29.8 MCHC 33.2 RDW 14.4 Plt Count 155 MPV 9.4 Neut % (Auto) 62.3 Lymph % (Auto) 30.0 Mcclain % (Auto) 6.3 Eos % (Auto) 0.6 Baso % (Auto) 0.8 Neut # (Auto) 5.3 Lymph # (Auto) 2.6 Mcclain # (Auto) 0.5 Eos # (Auto) 0.0 Baso # (Auto) 0.1 PT 11.8 INR 1.1 APTT 30 Sodium 144 Potassium 3.4 L Chloride 106 Carbon Dioxide 27 Anion Gap 15 BUN 15 Creatinine 0.6 L Est GFR ( Amer) > 60 Est GFR (Non-Af Amer) > 60 Random Glucose 118 H Hemoglobin A1c Calcium 9.6 Total Bilirubin 0.6 AST 60 H ALT 75 H Alkaline Phosphatase 133 H Total Creatine Kinase CK-MB (Mass) Troponin I < 0.0120 NT-Pro-B Natriuret Pep 92.0 Total Protein 7.9 Albumin 3.9 Globulin 4.0 H Albumin/Globulin Ratio 1.0 Triglycerides Cholesterol LDL Cholesterol Direct HDL Cholesterol 25-OH Vitamin D Total Thyroxine (T4) TSH 3rd Generation Urine Color Urine Clarity Urine pH Ur Specific [place] Urine Protein Urine Glucose (UA) Urine Ketones Urine Blood Urine Nitrate Urine Bilirubin Urine Urobilinogen Ur Leukocyte Esterase Urine WBC (Auto) Urine RBC (Auto) Ur Squamous Epith Cells Calcium Oxalate Crystal Urine Bacteria Urine Opiates Screen Urine Methadone Screen Ur Barbiturates Screen Ur Phencyclidine Scrn Ur Amphetamines Screen U Benzodiazepines Scrn U Oth Cocaine Metabols U Cannabinoids Screen Alcohol, Quantitative 08/09/18 08/09/18 08/09/18 16:41 16:41 18:24 WBC RBC Hgb Hct MCV MCH MCHC RDW Plt Count MPV Neut % (Auto) Lymph % (Auto) Mcclain % (Auto) Eos % (Auto) Baso % (Auto) Neut # (Auto) Lymph # (Auto) Mcclain # (Auto) Eos # (Auto) Baso # (Auto) PT INR APTT Sodium Potassium Chloride Carbon Dioxide Anion Gap BUN Creatinine Est GFR ( Amer) Est GFR (Non-Af Amer) Random Glucose Hemoglobin A1c 6.7 H Calcium Total Bilirubin AST ALT Alkaline Phosphatase Total Creatine Kinase CK-MB (Mass) Troponin I NT-Pro-B Natriuret Pep Total Protein Albumin Globulin Albumin/Globulin Ratio Triglycerides 111 Cholesterol 184 LDL Cholesterol Direct 46 HDL Cholesterol 136 H 25-OH Vitamin D Total Thyroxine (T4) 9.95 TSH 3rd Generation 0.55 Urine Color Thelma Urine Clarity Hazy Urine pH 5.0 Ur Specific [place] 1.029 Urine Protein 1+ H Urine Glucose (UA) 3+ H Urine Ketones Negative Urine Blood 1+ H Urine Nitrate Negative Urine Bilirubin Negative Urine Urobilinogen 4.0 H Ur Leukocyte Esterase 3+ H Urine WBC (Auto) 50 H Urine RBC (Auto) 12 H Ur Squamous Epith Cells 2 Calcium Oxalate Crystal Mod H Urine Bacteria Rare Urine Opiates Screen Urine Methadone Screen Ur Barbiturates Screen Ur Phencyclidine Scrn Ur Amphetamines Screen U Benzodiazepines Scrn U Oth Cocaine Metabols U Cannabinoids Screen Alcohol, Quantitative 17 H 08/09/18 08/09/18 08/09/18 18:24 19:37 20:35 WBC RBC Hgb Hct MCV MCH MCHC RDW Plt Count MPV Neut % (Auto) Lymph % (Auto) Mcclain % (Auto) Eos % (Auto) Baso % (Auto) Neut # (Auto) Lymph # (Auto) Mcclain # (Auto) Eos # (Auto) Baso # (Auto) PT INR APTT Sodium Potassium Chloride Carbon Dioxide Anion Gap BUN Creatinine Est GFR ( Amer) Est GFR (Non-Af Amer) Random Glucose Hemoglobin A1c Calcium Total Bilirubin AST ALT Alkaline Phosphatase Total Creatine Kinase 114 CK-MB (Mass) 0.97 Troponin I < 0.0120 NT-Pro-B Natriuret Pep Total Protein Albumin Globulin Albumin/Globulin Ratio Triglycerides Cholesterol LDL Cholesterol Direct HDL Cholesterol 25-OH Vitamin D Total 40.4 Thyroxine (T4) TSH 3rd Generation Urine Color Urine Clarity Urine pH Ur Specific [place] Urine Protein Urine Glucose (UA) Urine Ketones Urine Blood Urine Nitrate Urine Bilirubin Urine Urobilinogen Ur Leukocyte Esterase Urine WBC (Auto) Urine RBC (Auto) Ur Squamous Epith Cells Calcium Oxalate Crystal Urine Bacteria Urine Opiates Screen Positive H Urine Methadone Screen Negative Ur Barbiturates Screen Negative Ur Phencyclidine Scrn Negative Ur Amphetamines Screen Negative U Benzodiazepines Scrn Negative U Oth Cocaine Metabols Negative U Cannabinoids Screen Negative Alcohol, Quantitative 08/10/18 03:04 WBC RBC Hgb Hct MCV MCH MCHC RDW Plt Count MPV Neut % (Auto) Lymph % (Auto) Mcclain % (Auto) Eos % (Auto) Baso % (Auto) Neut # (Auto) Lymph # (Auto) Mcclain # (Auto) Eos # (Auto) Baso # (Auto) PT INR APTT Sodium Potassium Chloride Carbon Dioxide Anion Gap BUN Creatinine Est GFR ( Amer) Est GFR (Non-Af Amer) Random Glucose Hemoglobin A1c Calcium Total Bilirubin AST ALT Alkaline Phosphatase Total Creatine Kinase 106 CK-MB (Mass) 0.94 Troponin I < 0.0120 NT-Pro-B Natriuret Pep Total Protein Albumin Globulin Albumin/Globulin Ratio Triglycerides Cholesterol LDL Cholesterol Direct HDL Cholesterol 25-OH Vitamin D Total Thyroxine (T4) TSH 3rd Generation Urine Color Urine Clarity Urine pH Ur Specific [place] Urine Protein Urine Glucose (UA) Urine Ketones Urine Blood Urine Nitrate Urine Bilirubin Urine Urobilinogen Ur Leukocyte Esterase Urine WBC (Auto) Urine RBC (Auto) Ur Squamous Epith Cells Calcium Oxalate Crystal Urine Bacteria Urine Opiates Screen Urine Methadone Screen Ur Barbiturates Screen Ur Phencyclidine Scrn Ur Amphetamines Screen U Benzodiazepines Scrn U Oth Cocaine Metabols U Cannabinoids Screen Alcohol, Quantitative Assessment & Plan (1) Primary osteoarthritis of right hip Assessment and Plan: vitamin D level now 40 patient with abnormal u/a, probable UTI on admission, ucx pending patient indicated for THR radiographically, advised smoking cessation, ETOH cessation, and must have no evidence of UTI prior to any proposed elective surgery d/w Dr. Irving, agrees with above Status: Acute (2) Avascular necrosis of femur head, left Status: Acute (3) Avascular necrosis of femur head, right Status: Acute (4) Primary osteoarthritis of left hip Status: Acute (5) UTI (urinary tract infection) Status: Acute
[2018-08-10] MEDS: Lidocaine 5% Patch TD SCH (09:54)
--- NOTE | 2018-08-10 12:32 | CP.PCM.PN ---
Subjective - Date & Time of Evaluation Date of Evaluation: 08/10/18 Time of Evaluation: 09:45 - Subjective Subjective: Medicine progress note for Dr. Aranda's service Patient seen and examined. Patient sitting in bed comfortably. Patient denies chest pain but admits to right hip and low back pain. Objective - Vital Signs/Intake and Output Vital Signs (last 24 hours): Temp Pulse Resp BP Pulse Ox 98.2 F 75 20 134/90 95 08/10/18 08:38 08/10/18 08:38 08/10/18 08:38 08/10/18 08:38 08/10/18 08:38 Intake and Output: 08/10/18 08/10/18 06:59 18:59 Intake Total 120 Balance 120 - Medications Medications: Current Medications Albuterol/Ipratropium (Duoneb 3 Mg/0.5 Mg (3 Ml) Ud) 3 ml INH RQ6 PRN PRN Reason: Shortness of Breath Amlodipine Besylate (Norvasc) 10 mg PO DAILY [facility] Last Admin: 08/10/18 09:54 Dose: 10 mg Folic Acid (Folic Acid) 1 mg PO DAILY [facility] Last Admin: 08/10/18 09:53 Dose: 1 mg Gabapentin (Neurontin) 300 mg PO DAILY [facility] Last Admin: 08/10/18 09:53 Dose: 300 mg Heparin Sodium (Porcine) (Heparin) 5,000 units SC Q8 [facility] Last Admin: 08/10/18 06:01 Dose: 5,000 units Ibuprofen (Motrin Tab) 400 mg PO Q6 PRN PRN Reason: Pain, Mild (1-3) Ketorolac Tromethamine (Toradol) 15 mg IVP Q6 PRN PRN Reason: Pain, moderate (4-7) Last Admin: 08/09/18 21:24 Dose: 15 mg Lidocaine (Lidoderm) 1 ea TD DAILY [facility] Last Admin: 08/10/18 09:54 Dose: 1 ea Nicotine (Nicoderm Cq) 1 patch TD DAILY [facility] Last Admin: 08/10/18 09:58 Dose: 1 patch Tiotropium [place] (Spiriva) 18 mcg INH RQ24 [facility] Tramadol HCl (Ultram) 25 mg PO TID PRN PRN Reason: Pain, severe (8-10) Last Admin: 08/10/18 02:16 Dose: 25 mg - Labs Labs: 08/09/18 14:38 08/09/18 14:38 PT 11.8 SECONDS (9.7-12.2) 08/09/18 14:38 INR 1.1 08/09/18 14:38 APTT 30 SECONDS (21-34) 08/09/18 14:38 - Constitutional Appears: No Acute Distress, Chronically Ill - Head Exam Head Exam: ATRAUMATIC, NORMOCEPHALIC - Eye Exam Eye Exam: EOMI - ENT Exam ENT Exam: Mucous Membranes Moist - Respiratory Exam Respiratory Exam: Clear to Ausculation Bilateral, NORMAL BREATHING PATTERN - Cardiovascular Exam Cardiovascular Exam: +S1, +S2 - GI/Abdominal Exam GI & Abdominal Exam: Soft, Normal Bowel Sounds - Extremities Exam Additional comments: right hip tenderness - Back Exam Back Exam: paraspinal tenderness (lumbar) - Psychiatric Exam Psychiatric exam: Normal Affect - Skin Skin Exam: Dry, Warm Assessment and Plan - Assessment and Plan (Free Text) Assessment: Chest Tightness - Likely secondary to COPD, smoking history - R/o cardiac origin, admitted to telemetry - Troponinx3: negative - Chest xray: right apical pleural parenchymal scarring/fibrosis; scatter probable calcified granulomas. - HgbA1c: 6.7 - Lipid panel: trig 111/ chol 184/ LDL 46/ HDL 136 - TSH: 0.55 - Continue to monitor - Duonebs Q6prn - Spiriva 2 INH daily Degenerative Joint Disease Bilateral Hip and Knee pain - Orthopedics consulted, Dr. Irving. Help appreciated * Of note, during previous admission in , Dr. Irving recommened outpatient elective bilateral hip surgery. Patient was given referral, but stated she has not been able to make an appointment yet. Dr. Irving also requested that the patient takes Vitamin D to achieve a vitamin D level greater than 40. Vitamin D- 40.4 - Ibuprofen 400mg PO Q6 prn for mild pain - Toradol 15mg IV Q6 prn for moderate pain - Ultram 25mg PO TID prn for severe pain - Lidoderm patch daily Imaging from previous admission in 06/2018: * Hip/Pelvis X-Ray: No fracture or dislocation appreciated. Advanced hypertrophic and cystic osteoarthrosis -each hip - right greater than left. Intrinsic bilateral background hip dysplasia suspect. Secondary bilateral hip avascular necrosis possible * Femur X-Ray: No acute fracture appreciated. Osseous hypertrophic changes and other findings as referenced above noted * Pelvis CT: No evidence of acute displaced fracture nor dislocation. Significant degenerative osteoarthritis both hip joints right greater than left. Urinary bladder incompletely distended which presumably accounts for thick -walled appearance. The possibility of a cystitis/UTI not excluded. Clinical correlation recommended. Large bilateral hip joint effusions. HTN - Continue home medication: Amlodipine 10mg PO daily - Continue to monitor Tobacco Abuse - Nicoderm patch Polysubstance abuse - Serum Alcohol: 17 - UDS: + opiates (given in ER on prior visit) - Folic acid 1mg po daily - Monitor for signs of withdrawal. Prophylaxis - DVT: Heparin 5000u SC Q8h - GI: not indicated - [facility] Diet - PT recommends TCU All management per Dr. Aranda. Patient is stable for discharge per Dr. Aranda. Patient is to follow up with Dr. Aranda upon discharge. Patient is to see [facility] [phone]. Patient is to take ciprofloxacin 500mg by mouth twice a day for 7 days for urinary tract infection. She will need to follow up with Dr. Aranda for results of urine culture. Patient is being given new prescription for lidocaine 5% topical gel once daily for right hip pain. Patient is advised to continue her once weekly vitamin D as previously prescribed. Patient is also being given outpatient physical therapy prescription. Patient is also encouraged to stop smoking. This was explained to the patient who understands and agrees.
[2018-08-10 18:33] VITALS: BP 114/76; PULSE 81; TEMP 98.3; O2SAT 98
--- NOTE | 2018-08-11 06:56 | CARD ---
APPROVED REPORT Date of service: 08/09/2018 EKG Measurement Heart [id number] CT [id number] <Conclusion> Normal sinus rhythm Normal ECG
--- NOTE | 2018-08-11 07:02 | CARD ---
APPROVED REPORT Date of service: 08/09/2018 EKG Measurement Heart [id number] <Conclusion> Sinus tachycardia Possible Left atrial enlargement Nonspecific T wave abnormality Abnormal ECG
--- NOTE | 2018-08-11 08:12 | HP ---
HISTORY OF PRESENT ILLNESS: A 67-year-old female with hip pain, falls. The patient was walking, felt this pain and weakness and the ambulance was called and brought to the emergency room. The patient has a history of arthritis, alcoholism, peripheral neuropathy. PHYSICAL EXAMINATION: GENERAL: The patient is awake, alert, and oriented. VITAL SIGNS: Temperature 98, pulse 90. HEENT: Within normal limits. NECK: Supple. CHEST: Symmetrical. HEART: Regular. ABDOMEN: Soft. EXTREMITIES: No edema. ASSESSMENT AND PLAN: The patient suffers from . Patient getting bed rest, ____ enzyme, surgical ____. Milton Aranda MD
== END 2018-08-10 18:55 | disposition home or self-care (01) ==
LOC: C.ER 14:02 → C.9E 15:34 → C.6T 16:21
PROVIDERS: ADMIT Internal Medicine Pulmonary Disease; ATTEND Internal Medicine Pulmonary Disease
DX: J44.9 Chronic obstructive pulmonary disease, unspecified (principal); I10 Essential (primary) hypertension; F17.210 Nicotine dependence, cigarettes, uncomplicated; M16.0 Bilateral primary osteoarthritis of hip; N39.0 Urinary tract infection, site not specified
CPT/HCPCS: 36415; 71045; 80053; 80061; 80320; 80324; 80345; 80346; 80349; 80353; 80358; 80361; 81001; 82306; 83036; 83880; 83992; 84436; 84443; 84484; 85025; 85610; 85730; 87086; 97116; 97162; 97166; 97530; 99285; G0378; G8978; G8979; G8987; G8988; J1644; J1885

== ENCOUNTER 2018-08-14 15:10 | Emergency (ER) | payer OTHER ==
[2018-08-14 15:11] VITALS: BMI 19.8
[2018-08-14 15:23] VITALS: RESP 18; TEMP 98.3
--- NOTE | 2018-08-14 16:28 | RAD ---
PROCEDURE: Right Hip Radiographs. HISTORY: r/o fx COMPARISON: None. FINDINGS: BONES: The pelvic ring is intact. There is diffuse bone demineralization. There is no acute displaced fracture or bone destruction. Bone alignment is normal. JOINTS: There is avascular necrosis in bilateral femoral heads and secondary severe degenerative osteoarthrosis with near complete loss of joint spaces. SOFT TISSUES: Normal. OTHER FINDINGS: None. IMPRESSION: No acute displaced fracture or dislocation. Please note occult fractures cannot be excluded on plain radiographs. If there is a persistent clinical concern, an MRI of the hip may be performed for further evaluation. Bilateral femoral head avascular necrosis with severe secondary degenerative osteoarthrosis.
[2018-08-14 17:26] VITALS: BP 138/82; PULSE 68; O2SAT 97
--- NOTE | 2018-08-14 19:32 | C.PDOC ---
History Of Present Illness 67 year old female presents to the emergency department with complaints of chronic hip pain (left greater than right). Patient states that she was walking and her leg gave out, but her friend caught her so she did not fall to the ground. Of note, patient had the same presentation at at least one other ED visit where her friend caught her, preventing her falling to the ground. Chief Complaint (Nursing): Lower Extremity Problem/Injury History Per: Patient History/Exam Limitations: no limitations Onset/Duration Of Symptoms: Hrs Current Symptoms Are (Timing): Still Present - Hip Description Of Injury: Lost Balance Past Medical History Reviewed: Historical Data, Nursing Documentation, Vital Signs Vital Signs: Last Vital Signs Temp 98.3 F 08/14/18 15:19 Pulse 68 08/14/18 17:25 Resp 18 08/14/18 17:25 BP 138/82 08/14/18 17:25 Pulse Ox 97 08/14/18 19:35 - Medical History PMH: Arthritis (B/L HIP), COPD, HTN Surgical History: Tonsillectomy Family History: States: No Known Family Hx - Social History Hx Tobacco Use: Yes (Light smoker <10 cigarettes daily) Hx Alcohol Use: Yes Hx Substance Use: No (denies this visit,last use 2017) - Immunization History Hx Tetanus Toxoid Vaccination: No Hx Influenza Vaccination: No Hx Pneumococcal Vaccination: No Review Of Systems Except As Marked, All Systems Reviewed And Found Negative. Musculoskeletal: Positive for: Leg Pain (left hip pain) Neurological: Negative for: Weakness, Numbness Physical Exam - Physical Exam Appears: Non-toxic, No Acute Distress Skin: Warm, Diaphoretic Head: Atraumatic, Normacephalic Eye(s): bilateral: Normal Inspection Neck: Normal, Supple Chest: Symmetrical, No Tenderness Cardiovascular: Rhythm Regular, No Murmur Respiratory: No Rales, No Rhonchi, No Wheezing Extremity: Normal ROM (all extremities), Tenderness (diffuse hip tenderness bilaterally) Pulses: Left Dorsalis Pedis: Normal, Right Dorsalis Pedis: Normal Neurological/Psych: Oriented x3, Normal Speech, Normal Cognition ED Course And Treatment O2 Sat by Pulse Oximetry: 97 (RA) Pulse Ox Interpretation: Normal - Other Rad XR Hip w/Pelvis X-Ray: Viewed By Me, Read By Radiologist Interpretation: IMPRESSION: No acute displaced fracture or dislocation. Please note occult fractures cannot be excluded on plain radiographs. If there is a persistent clinical concern, an MRI of the hip may be performed for further evaluation. Bilateral femoral head avascular necrosis with severe secondary degenerative osteoarthrosis. Progress Note: Plan: Motrin 600mg PO. XR Hip w/Pelvis. Patient informed that she should follow up with her PMD to obtain a prescription for pain medications. Patient walked out of the ED without using a walker. Disposition - Disposition Referrals: Milton Aranda MD [Staff Provider] - Disposition: HOME/ ROUTINE Disposition Time: 16:40 Condition: GOOD Additional Instructions: FRANCO IRVIN, thank you for letting us take care of you today. Your provider was Donnell Servin DO and you were treated for RT HIP PAIN. The emergency medical care you received today was directed at your acute symptoms. If you were prescribed any medication, please fill it and take as directed. It may take several days for your symptoms to resolve. Return to the Emergency Department if your symptoms worsen, do not improve, or if you have any other problems. Please contact your doctor or call one of the physicians/clinics you have been referred to that are listed on the Patient Visit Information form that is included in your discharge packet. Bring any paperwork you were given at discharge with you along with any medications you are taking to your follow up visit. Our treatment cannot replace ongoing medical care by a primary care provider outside of the emergency department. Thank you for allowing the [facility] team to be part of your care today. Follow up with your primary care doctor this week for pain medication/ management. Prescriptions: traMADol [Ultram] 50 mg PO Q8 PRN #10 tab PRN Reason: Pain, Severe (8-10) Instructions: Osteoarthritis (DC) Forms: [employer] (Swazi) - Clinical Impression Clinical Impression: Chronic pain disorder - Scribe Statement The provider has reviewed the documentation as recorded by the Scribe (Lul Webster) Provider Attestation: All medical record entries made by the Scribe were at my direction and personally dictated by me. I have reviewed the chart and agree that the record accurately reflects my personal performance of the history, physical exam, medical decision making, and the department course for this patient. I have also personally directed, reviewed, and agree with the discharge instructions and disposition.
== END 2018-08-14 17:32 | disposition home or self-care (01) ==
LOC: C.ER 15:10
DX: G89.29 Other chronic pain (principal)

== ENCOUNTER 2018-08-17 20:33 | Emergency (ER) | payer OTHER ==
[2018-08-17 20:34] VITALS: BMI 19.8
--- NOTE | 2018-08-17 21:04 | C.PDOC ---
History Of Present Illness 67 y/o female with PMHx of arthritis in hips, presents to the ED complaining of left lower back pain after sustaining a fall today. Patient states she was walking on the street with her walker, lost her balance, and started to fall. Someone caught her so she did not hit the ground hard and was able to get up and weight bear after. She denies any numbness, tingling, or focal weakness. Of note patient states she is scheduled for hip replacement surgery with Dr. Irving. Pain is localized over the left lower back and pelvic/hip area. Time Seen by Provider: 08/17/18 20:45 Chief Complaint (Nursing): Back Pain History Per: Patient History/Exam Limitations: no limitations Onset/Duration Of Symptoms: Hrs Current Symptoms Are (Timing): Still Present Associated Symptoms: None Past Medical History Reviewed: Historical Data, Nursing Documentation, Vital Signs Vital Signs: Last Vital Signs Temp 99.3 F 08/17/18 20:43 Pulse 110 H 08/17/18 20:43 Resp 20 08/17/18 20:43 BP 100/69 08/17/18 20:43 Pulse Ox 96 08/17/18 20:43 - Medical History PMH: Arthritis (B/L HIP), COPD, HTN Surgical History: Tonsillectomy Family History: States: Unknown Family Hx - Social History Hx Tobacco Use: Yes (Light smoker <10 cigarettes daily) Hx Alcohol Use: Yes Hx Substance Use: No - Immunization History Hx Tetanus Toxoid Vaccination: Yes Hx Influenza Vaccination: Yes Hx Pneumococcal Vaccination: Yes Review Of Systems Constitutional: Negative for: Fever, Other (head trauma) Genitourinary: Negative for: Dysuria, Frequency, Incontinence, Hematuria Musculoskeletal: Positive for: Back Pain (left lower), Leg Pain (left pelvic/hip pain) Neurological: Negative for: Weakness, Numbness, Incoordination, Other (paresthesias) Physical Exam - Physical Exam Appears: Non-toxic, No Acute Distress Skin: Normal Color, Warm, Dry Head: Atraumatic, Normacephalic Eye(s): bilateral: Normal Inspection Oral Mucosa: Moist Neck: Normal ROM Chest: Symmetrical Cardiovascular: Rhythm Regular, No Murmur Respiratory: Normal Breath Sounds, No Accessory Muscle Use Back: Normal Inspection (no swelling or skin changes), No Vertebral Tenderness, Other (No bony point tenderness, generalized discomfort in left paralumbar area) Extremity: Normal ROM (With good ROM of bilateral lower extremities), Capillary Refill (less than 2 sec), No Deformity, No Swelling (or ecchymosis) Pulses: Left Dorsalis Pedis: Normal, Right Dorsalis Pedis: Normal Neurological/Psych: Oriented x3, Normal Speech ED Course And Treatment O2 Sat by Pulse Oximetry: 96 (RA) Pulse Ox Interpretation: Normal - Other Rad Lumbar spine and left hip X-Ray: Interpreted by Me Interpretation: No evidence of acute fracture, Severe degenerative arthritic changes in both hips, Spondylolesthesis L3-4 Reevaluation Time: 21:29 Reassessment Condition: Improved Medical Decision Making Medical Decision Making: Impression: Left hip and back pain s/p fall Initial Plan: --LS spine x-ray --Left hip x-ray Disposition Counseled Patient/Family Regarding: Studies Performed, Diagnosis, Need For Followup, Rx Given - Disposition Referrals: Milton Aranda MD [Staff Provider] - Channing Irving III, MD [Staff Provider] - Disposition: HOME/ ROUTINE Disposition Time: 21:32 Condition: STABLE Prescriptions: Prednisone 50 mg PO DAILY #4 tablet Instructions: Osteoarthritis Forms: [facility] (Thai) - Clinical Impression Clinical Impression: Primary osteoarthritis of left hip, Contusion of back - Scribe Statement The provider has reviewed the documentation as recorded by the Scribe (Meg Duff) Provider Attestation: All medical record entries made by the Scribe were at my direction and personally dictated by me. I have reviewed the chart and agree that the record accurately reflects my personal performance of the history, physical exam, medical decision making, and the department course for this patient. I have also personally directed, reviewed, and agree with the discharge instructions and disposition.
[2018-08-17 23:56] VITALS: BP 100/62; PULSE 89; RESP 18; TEMP 98.2; O2SAT 97
--- NOTE | 2018-08-18 08:35 | RAD ---
Date of service: 08/17/2018 PROCEDURE: Radiographs of the Lumbar Spine. HISTORY: fall, c/o lower back pain COMPARISON: 01/08/[address] 07/14/2018 FINDINGS: BONES: There is L3 vertebral body prominent concavity and prominent superior endplate spondylosis. Although to some extent this has been present previously on the after mentioned studies. It is more accentuated on the current study and an acute mild compression deformity of top of a old compression deformity and/or severe Schmorl's node indentation here are is a consideration. No retropulsed ossific fragment noted. There is exuberant facet hypertrophic arthrosis and mild stepladder like degenerative malalignment stable in appearance at the mid to inferior lumbar spine levels. DISC SPACES: Diffusely narrowed OTHER FINDINGS: None. IMPRESSION: Mild acute on chronic changes regarding the L3 vertebral body possible as detailed above. No retropulsed ossific fragments noted. The loss of vertebral body height of L3 is estimated to be 40 percent Comments: Study marked for PA review .
--- NOTE | 2018-08-18 08:40 | RAD ---
PROCEDURE: Left Hip X-ray Radiographs. HISTORY: fall COMPARISON: 08/14/2018-pelvic and right hip x-ray FINDINGS: BONES: No fracture appreciated. JOINTS: Severe bilateral hip arthrosis. Mixed cystic and sclerotic changes present osseous productive/hypertrophic changes-right hip greater than left hip. A concomitant bilateral avascular necrosis is inferred SOFT TISSUES: Normal. OTHER FINDINGS: None. IMPRESSION: No fracture or dislocation appreciated. Bilateral hip severe osteoarthrosis. Bilateral hip avascular necrosis inferred
== END 2018-08-17 23:55 | disposition home or self-care (01) ==
LOC: C.ER 20:33
DX: S30.0XXA Contusion of lower back and pelvis, initial encounter (principal); W18.39XA Other fall on same level, initial encounter; Y93.01 Activity, walking, marching and hiking; Y92.410 Unspecified street and highway as the place of occurrence of the external cause; M16.12 Unilateral primary osteoarthritis, left hip

== ENCOUNTER 2018-08-22 14:19 | Emergency (ER) | payer OTHER ==
[2018-08-22 14:19] VITALS: BMI 19.8
[2018-08-22 14:28] VITALS: TEMP 98.5
[2018-08-22] MEDS ORDERED: Albuterol-Ipratrop 3 mg / 0.5 (3 ml) UD ONE (15:22)
[2018-08-22 15:25] LABS: ALBUMIN 4.2 g/dL (3.5-5.0); ALT/SGPT 46 U/L (9-52); AST/SGOT 56 U/L (14-36); BLOOD UREA NITROGEN 14 mg/dL (7-17); CALCIUM 9.2 mg/dl (8.6-10.4); GFR NON-AFRICAN AMERICAN > 60
[2018-08-22 15:35] LABS: B-TYPE NATRIURETIC PEPTIDE 95.6 pg/mL (0-900)
[2018-08-22] MEDS: Albuterol-Ipratrop 3 mg / 0.5 (3 ml) UD IH SCH (15:35)
--- NOTE | 2018-08-22 15:51 | RAD ---
Date of service: 08/22/2018 PROCEDURE: CHEST RADIOGRAPH, 1 VIEW HISTORY: SOB COMPARISON: 08/09/2018. FINDINGS: LUNGS: The lungs are hyperinflated and there is peribronchial thickening with chronic changes in both lungs. No focal consolidation. PLEURA: No pneumothorax or pleural fluid seen. CARDIOVASCULAR: Normal. OSSEOUS STRUCTURES: No significant abnormalities. VISUALIZED UPPER ABDOMEN: Normal. OTHER FINDINGS: None. IMPRESSION: No active pulmonary disease. COPD.
[2018-08-22 15:54] LABS: BASO % 0.6 % (0.0-2.0); EOS % 0.6 % (0.0-4.0); HEMOGLOBIN 12.7 g/dL (11.0-16.0); LYMPH # 2.3 K/uL (1.0-4.3); LYMPH % 34.7 % (20.0-40.0); MEAN CELL VOLUME 90.8 fL (81.0-99.0); MEAN CORPUSCULAR HGB CONC 33.1 g/dL (33.0-37.0); MONO # 0.5 K/uL (0.0-0.8); MONO % 6.8 % (0.0-10.0); NEUT # 3.8 K/uL (1.8-7.0); NEUT % 57.3 % (50.0-75.0); NRBC % 0.2 % (0.0-2.0); RBC 4.23 Mil/uL (3.80-5.20); RED CELL DISTRIBUTION WIDTH 15.9 % (11.5-14.5); WHITE BLOOD COUNT 6.7 K/uL (4.8-10.8)
--- NOTE | 2018-08-22 17:02 | C.PDOC ---
History Of Present Illness 68 y/o female with multiple medical problems presents to the ED c/o SOB and CP today when on her way to see her PMD. Patient was evaluated at [facility] a day prior for same. In the ED patient is in no distress. States pain is across her chest, constant, dull. Time Seen by Provider: 08/22/18 14:40 Chief Complaint (Nursing): Chest Pain Past Medical History Vital Signs: Last Vital Signs Temp 98.5 F 08/22/18 14:26 Pulse 109 H 08/22/18 14:26 Resp 22 08/22/18 14:26 BP 117/85 08/22/18 14:26 Pulse Ox 98 08/22/18 14:26 - Medical History PMH: Arthritis (B/L HIP), COPD, HTN Denies: Chronic Kidney Disease Surgical History: Tonsillectomy Family History: States: Unknown Family Hx - Social History Hx Tobacco Use: Yes (Light smoker <10 cigarettes daily) Hx Alcohol Use: Yes Hx Substance Use: No - Immunization History Hx Tetanus Toxoid Vaccination: Yes Hx Influenza Vaccination: Yes Hx Pneumococcal Vaccination: Yes Review Of Systems Constitutional: Negative for: Fever, Chills Cardiovascular: Positive for: Chest Pain. Negative for: Palpitations Respiratory: Negative for: Cough Gastrointestinal: Negative for: Nausea, Vomiting, Abdominal Pain Neurological: Negative for: Weakness Psych: Negative for: Anxiety Physical Exam - Physical Exam Appears: Non-toxic Skin: Normal Color Head: Atraumatic Chest: No Deformity, No Tenderness Cardiovascular: Rhythm Regular Respiratory: Normal Breath Sounds, No Accessory Muscle Use, No Rales, No Rhonchi, No Stridor, No Wheezing Gastrointestinal/Abdominal: Normal Exam ED Course And Treatment - Laboratory Results Result Diagrams: 08/22/18 15:44 08/22/18 15:08 O2 Sat by Pulse Oximetry: 98 (RA) Pulse Ox Interpretation: Normal - Other Rad CXR X-Ray: Read By Radiologist Interpretation: FINDINGS: LUNGS: The lungs are hyperinflated and there is peribronchial thickening with chronic changes in both lungs. No focal consolidation. PLEURA: No pneumothorax or pleural fluid seen. CARDIOVASCULAR: Normal. OSSEOUS STRUCTURES: No significant abnormalities. VISUALIZED UPPER ABDOMEN: Normal. OTHER FINDINGS: None. IMPRESSION: No active pulmonary disease. COPD. Medical Decision Making Medical Decision Making: Plan: --Blood sent. --CXR --Given Albuterol Nebulizer Treatment. --EKG Patient with clear CXR, CE wnl, EKG unremarcable. Update/progress: :[address] Aranda, reviewed findings, agrees with plan for discharge. Disposition Discussed With : Milton Aranda - Disposition Disposition: HOME/ ROUTINE Disposition Time: 19:40 Condition: STABLE Prescriptions: Albuterol HFA [Ventolin HFA 90 mcg/actuation (8 g)] 1 puff IH QID PRN #1 puff PRN Reason: Cough Prednisone [Deltasone] 60 mg PO DAILY #12 tablet Instructions: Chronic Obstructive Pulmonary Disease (COPD), Including Emphysema Forms: [employer] (Slovenian), General Discharge Instructions - POA Present On Arrival: None - Clinical Impression Clinical Impression: COPD (chronic obstructive pulmonary disease) - Scribe Statement The provider has reviewed the documentation as recorded by the Scribe ([place]) Provider Attestation: All medical record entries made by the Scribe were at my direction and personally dictated by me. I have reviewed the chart and agree that the record accurately reflects my personal performance of the history, physical exam, medical decision making, and the department course for this patient. I have also personally directed, reviewed, and agree with the discharge instructions and disposition.
[2018-08-22 18:02] VITALS: BP 113/76; PULSE 93; RESP 18
[2018-08-22 19:42] VITALS: O2SAT 98
--- NOTE | 2018-08-24 12:39 | CARD ---
APPROVED REPORT Date of service: 08/22/2018 EKG Measurement Heart [id number] <Conclusion> Sinus tachycardia Possible Left atrial enlargement Borderline ECG
== END 2018-08-22 23:24 | disposition home or self-care (01) ==
LOC: C.ER 14:19
DX: J44.9 Chronic obstructive pulmonary disease, unspecified (principal); Z87.891 Personal history of nicotine dependence

== ENCOUNTER 2018-08-24 17:34 | Emergency (ER) | payer MEDICAID, OTHER ==
[2018-08-24 17:35] VITALS: BMI 19.8
--- NOTE | 2018-08-24 18:47 | C.PDOC ---
History Of Present Illness 68-year-old female, presents to the emergency department with complaints of shortness of breath ongoing for the past 2-3 days, associated with generalized weakness and headache. Patient has a Hx of COPD, and states she stopped taking her diuretic "quite some time ago." Denies fever, nausea/vomiting. No other complaints at this time. Chief Complaint (Nursing): Shortness Of Breath History Per: Patient History/Exam Limitations: no limitations Onset/Duration Of Symptoms: Days Current Symptoms Are (Timing): Still Present Past Medical History Reviewed: Historical Data, Nursing Documentation, Vital Signs Vital Signs: Last Vital Signs Temp 98.2 F 08/24/18 18:14 Pulse 105 H 08/24/18 18:14 Resp 15 08/24/18 18:14 BP 99/63 L 08/24/18 18:14 Pulse Ox 100 08/24/18 18:14 - Medical History PMH: Arthritis (B/L HIP), COPD, HTN Denies: Chronic Kidney Disease Surgical History: Tonsillectomy Family History: States: No Known Family Hx - Social History Hx Tobacco Use: Yes (Light smoker <10 cigarettes daily) Hx Alcohol Use: Yes Hx Substance Use: No - Immunization History Hx Tetanus Toxoid Vaccination: Yes Hx Influenza Vaccination: Yes Hx Pneumococcal Vaccination: Yes Review Of Systems Constitutional: Positive for: Weakness Respiratory: Positive for: Shortness of Breath Neurological: Positive for: Headache Physical Exam - Physical Exam Appears: Non-toxic, No Acute Distress Skin: Warm, Dry, No Rash Head: Atraumatic, Normacephalic Eye(s): bilateral: Normal Inspection, PERRL, EOMI Nose: Normal Oral Mucosa: Moist Lips: Normal Appearing Neck: Normal ROM Cardiovascular: Rhythm Regular, No Murmur Respiratory: Decreased Breath Sounds, No Accessory Muscle Use, Rales (bases) Gastrointestinal/Abdominal: Soft, No Tenderness Extremity: Normal ROM, Pedal Edema (+2 pitting), No Deformity Neurological/Psych: Oriented x3, Normal Speech ED Course And Treatment - Laboratory Results Result Diagrams: 08/24/18 22:14 08/24/18 19:56 ECG: Interpreted By Me, Viewed By Me ECG Rhythm: Sinus Rhythm ECG Interpretation: Normal, No Acute Changes Interpretation Of ECG: NSR, normal tracings. Rate From EC O2 Sat by Pulse Oximetry: 100 Pulse Ox Interpretation: Normal (RA) - Radiology CXR: Interpreted by Me, Viewed By Me CXR Interpretation: Yes: Other (increased broncho-vascular maarkings) Disposition Counseled Patient/Family Regarding: Diagnosis - Disposition Referrals: Milton Aranda MD [Staff Provider] - Disposition: HOME/ ROUTINE Disposition Time: 22:47 Condition: STABLE Prescriptions: Furosemide [Lasix] 20 mg PO DAILY #10 tablet Instructions: Heart Failure, Child (DC) Forms: [employer] (Nepalese) - POA Present On Arrival: None - Clinical Impression Clinical Impression: Mild congestive heart failure - Scribe Statement The provider has reviewed the documentation as recorded by the Scribe (Jennifer Welch) Provider Attestation: All medical record entries made by the Scribe were at my direction and personally dictated by me. I have reviewed the chart and agree that the record accurately reflects my personal performance of the history, physical exam, medical decision making, and the department course for this patient. I have also personally directed, reviewed, and agree with the discharge instructions and disposition.
[2018-08-24 19:16] LABS: ABG ALLEN TEST PO; ARTERIAL BLOOD GAS HCO3 24.3 mmol/L (21-28); ARTERIAL BLOOD GAS HEMOGLOBIN 12.2 g/dL (11.7-17.4); ARTERIAL BLOOD GAS O2 SAT 94.2 % (95-98); ARTERIAL BLOOD GAS PCO2 36 mm/Hg (35-45); ARTERIAL BLOOD GAS PH 7.42 (7.35-7.45); ARTERIAL BLOOD GAS PO2 92 mm/Hg (80-100); ARTERIAL BLOOD GAS TCO2 24.5 mmol/L (22-28)
[2018-08-24 20:24] LABS: ALB/GLOB RATIO 0.9 (1.0-2.1); ALBUMIN 3.4 g/dL (3.5-5.0); ALT/SGPT 41 U/L (9-52); AST/SGOT 54 U/L (14-36); BLOOD UREA NITROGEN 20 mg/dL (7-17); CALCIUM 9.1 mg/dl (8.6-10.4); GFR NON-AFRICAN AMERICAN > 60; PROTHROMBIN TIME 11.3 SECONDS (9.7-12.2)
[2018-08-24] MEDS ORDERED: Iodixanol 320 MG/ML 100 ML BOTTLE IV ONE (20:55)
[2018-08-24 22:21] LABS: BASO # 0.1 K/uL (0.0-0.2); EOS # 0.1 K/uL (0.0-0.7); EOS % 1.1 % (0.0-4.0); HEMOGLOBIN 11.5 g/dL (11.0-16.0); MEAN CELL VOLUME 90.8 fL (81.0-99.0); MEAN CORPUSCULAR HEMOGLOBIN 29.9 pg (27.0-31.0); MEAN PLATELET VOLUME 9.4 fL (7.2-11.7); MONO # 0.5 K/uL (0.0-0.8); MONO % 7.7 % (0.0-10.0); NEUT # 2.8 K/uL (1.8-7.0); NEUT % 43.2 % (50.0-75.0); NRBC % 0.1 % (0.0-2.0); RBC 3.84 Mil/uL (3.80-5.20); WHITE BLOOD COUNT 6.4 K/uL (4.8-10.8)
[2018-08-24 23:23] VITALS: BP 131/86; PULSE 89; TEMP 98.1
[2018-08-24 23:52] VITALS: RESP 14; O2SAT 98
--- NOTE | 2018-08-25 08:35 | CT ---
Date of service: 08/24/2018 PROCEDURE: CT Chest with contrast (Pulmonary Angiogram) HISTORY: SOB/ elevated D-dimer COMPARISON: None available. TECHNIQUE: Axial computed tomography images were obtained of the chest in the pulmonary arterial phase of enhancement. Coronal and sagittal reformatted images were created and reviewed. Intravenous contrast dose: 100 cc Visipaque 320. Mean Hounsfield value in the main pulmonary artery: 291.42 Radiation dose: Total exam DLP = 255.19 mGy-cm. This CT exam was performed using one or more of the following dose reduction techniques: Automated exposure control, adjustment of the mA and/or kV according to patient size, and/or use of iterative reconstruction technique. FINDINGS: PULMONARY ARTERIES: Unremarkable. No pulmonary embolism. AORTA: No acute findings. No thoracic aortic aneurysm. LUNGS: Right apical scarring, bullous disease in both apices. PLEURAL SPACES: Unremarkable. No effusion or pneumothorax. HEART: Unremarkable. No cardiomegaly. No significant pericardial effusion. LYMPH NODES: No lymphadenopathy. BONES, CHEST WALL: Compression deformity T12 vertebral body with associated sclerosis of that osseous structure likely old compression fracture. OTHER FINDINGS: Unremarkable. IMPRESSION: Unremarkable CT pulmonary angiogram. No pulmonary embolus. Additional benign and/or incidental findings described above. Concordant results (preliminary interpretation) provided by [employer]. Procedure Completed: 21:29 Preliminary Report: Dictated and Authenticated: 22:12. Final Interpretation: 08:31.
--- NOTE | 2018-08-25 12:13 | RAD ---
Date of service: 08/24/2018 HISTORY: SOB COMPARISON: No prior. TECHNIQUE: Chest PA and lateral FINDINGS: LUNGS: No active pulmonary disease. Biapical thickening. PLEURA: No significant pleural effusion identified. No pneumothorax apparent. CARDIOVASCULAR: No radiographic findings to suggest acute or significant cardiovascular disease. OSSEOUS STRUCTURES: No significant abnormalities. VISUALIZED UPPER ABDOMEN: Normal. OTHER FINDINGS: None. IMPRESSION: No active disease. No significant interval change compared to the prior examination(s).
--- NOTE | 2018-08-25 23:03 | CARD ---
APPROVED REPORT Date of service: 08/24/2018 EKG Measurement Heart [id number] <Conclusion> Normal sinus rhythm Normal ECG
== END 2018-08-25 03:23 | disposition home or self-care (01) ==
LOC: C.ER 17:34
DX: I50.9 Heart failure, unspecified (principal)
CPT/HCPCS: 71046; 71275; 80053; 82803; 83880; 84484; 85025; 85378; 85610; 85730; 93005; 96374; 99285; J1940; Q9967

== ENCOUNTER 2018-08-29 18:42 | Emergency (ER) | payer MEDICARE, OTHER ==
[2018-08-29 18:42] VITALS: BMI 19.8
--- NOTE | 2018-08-29 20:29 | C.PDOC ---
History Of Present Illness 68 y/o F c PMHx HTN, Hep C, COPD, [place] [facility] [place], admitted just prior to that for COPD exacerbation. Had mechanical fall today, caught by friend but fell onto L hip. Denies headstrike, LOC, nausea, vomiting. Now complains of pain to the L lower back/buttocks. Denies radiation of pain. Denies numbness or paresthesias. Walks with walker at baseline, which she is able to do. Time Seen by Provider: 08/29/18 20:05 Chief Complaint (Nursing): Lower Extremity Problem/Injury Past Medical History Vital Signs: Last Vital Signs Temp 98.5 F 08/29/18 18:52 Pulse 21 L 08/29/18 18:52 Resp 109 H 08/29/18 18:52 BP 124/85 08/29/18 18:52 Pulse Ox 96 08/29/18 18:52 - Medical History PMH: Arthritis (B/L HIP), COPD, HTN Denies: Chronic Kidney Disease Surgical History: Tonsillectomy Family History: States: Unknown Family Hx - Social History Hx Tobacco Use: Yes (Light smoker <10 cigarettes daily) Hx Alcohol Use: Yes Hx Substance Use: No - Immunization History Hx Tetanus Toxoid Vaccination: Yes Hx Influenza Vaccination: Yes Hx Pneumococcal Vaccination: Yes Review Of Systems Except As Marked, All Systems Reviewed And Found Negative. Constitutional: Negative for: Fever Cardiovascular: Negative for: Chest Pain Physical Exam - Physical Exam Additional Physical Exam Comments: Constitutional: No acute distress. Head: Normocephalic. Atraumatic. Eyes: PERRL. ENT: Moist mucous membranes. Neck: Supple. No midline tenderness. Cardiovascular: Regular rate. Radial pulse 2+ bilaterally. Chest: No tenderness. Respiratory: Clear to auscultation bilaterally. GI: Soft. Nontender. Nondistended. Back: No CVA tenderness. No midline tenderness. Musculoskeletal: FROM of bilateral hips and knees. Tender to L lower back and L buttock. No bony tenderness. Skin: No rash. Neurologic: Alert, no focal deficit. Sensation to light touch intact in saddle area and lower legs. ED Course And Treatment O2 Sat by Pulse Oximetry: 96 Medical Decision Making Medical Decision Making: Hip XR shows no fracture or dislocation. Discharged home, f/u Dr. Aranda, return to ED for worsening pain, dyspnea, vomiting, or any other problem. Disposition - Disposition Referrals: Milton Aranda MD [Staff Provider] - Disposition: HOME/ ROUTINE Disposition Time: 21:47 Condition: STABLE Instructions: Preventing Falls in the Older Adult Forms: [facility] (Bolivian) - Clinical Impression Clinical Impression: Fall, Back pain
[2018-08-29 22:00] VITALS: BP 127/78; PULSE 96; RESP 14; TEMP 97.9
[2018-08-29 22:44] VITALS: O2SAT 96
--- NOTE | 2018-08-30 08:26 | RAD ---
Date of service: 08/29/2018 PROCEDURE: HISTORY: L hip pain, fall COMPARISON: 08/17/2018 TECHNIQUE: AP pelvis and frog's leg view. FINDINGS: Bilateral advanced osteoarthrosis of each hip noted-similar. Cystic and sclerotic subarticular changes present bilaterally-similar. Bilateral superolateral femoral head remodeling/flattening-concomitant bilateral avascular necrosis suspect. Cystic changes more pronounced left femoral head as before. Overall bone mineralization similar No interval fracture or dislocation appreciated. IMPRESSION: No interval fracture or dislocation. Other findings as above.
== END 2018-08-29 23:50 | disposition home or self-care (01) ==
LOC: C.ER 18:42
DX: M54.9 Dorsalgia, unspecified (principal); W18.30XA Fall on same level, unspecified, initial encounter; Y92.89 Other specified places as the place of occurrence of the external cause

== ENCOUNTER 2018-09-15 18:09 | Emergency (ER) | payer MEDICARE, OTHER ==
[2018-09-15 18:09] VITALS: BMI 19.8
[2018-09-15 18:28] VITALS: RESP 20
--- NOTE | 2018-09-15 19:21 | C.PDOC ---
History Of Present Illness 68 y/o female presents to the ED complaining of a headache that has been ongoing for the past two hours. 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 She describes the site of her headache as localized in the frontal region behind the eyes, in between the congregational. The patient has a Hx of headaches and chronic pain issues. She denies any nausea, vomiting or photophobia. The patient requested to have her finger stick checked. Time Seen by Provider: 09/15/18 19:16 Chief Complaint (Nursing): Headache History Per: Patient History/Exam Limitations: no limitations Onset/Duration Of Symptoms: Hrs Current Symptoms Are (Timing): Still Present Quality: Aching, "Pain" Preceeding Symptoms: denies: Visual Disturbances Associated Symptoms: denies: Photophobia, Nausea, Vomiting Recent travel outside of the [place]: No Past Medical History Reviewed: Historical Data, Nursing Documentation, Vital Signs Vital Signs: Last Vital Signs Temp 99 F 09/15/18 18:25 Pulse 107 H 09/15/18 18:25 Resp 20 09/15/18 18:25 BP 138/101 H 09/15/18 18:25 Pulse Ox 100 09/15/18 18:25 - Medical History PMH: Arthritis (B/L HIP), COPD, HTN Denies: Chronic Kidney Disease Surgical History: Tonsillectomy Family History: States: Unknown Family Hx - Social History Hx Tobacco Use: Yes (Light smoker <10 cigarettes daily) Hx Alcohol Use: Yes Hx Substance Use: No - Immunization History Hx Tetanus Toxoid Vaccination: Yes Hx Influenza Vaccination: Yes Hx Pneumococcal Vaccination: Yes Review Of Systems Except As Marked, All Systems Reviewed And Found Negative. Constitutional: Negative for: Fever Eyes: Negative for: Vision Change Gastrointestinal: Negative for: Nausea, Vomiting Neurological: Positive for: Headache Physical Exam - Physical Exam Appears: No Acute Distress, Other (smiling, playful) Skin: Warm, Dry Head: Atraumatic, Normacephalic Eye(s): bilateral: PERRL, EOMI Nose: Other (b/l nasal erythema, right >left. Nasal turbinates) Neck: Supple Chest: Symmetrical Cardiovascular: Rhythm Regular, No Murmur Respiratory: No Rales, No Rhonchi, No Wheezing Gastrointestinal/Abdominal: Soft, No Tenderness, No Distention Extremity: Normal ROM Extremity: Bilateral: Normal Color And Temperature, Normal ROM Neurological/Psych: Oriented x3, Normal Speech ED Course And Treatment O2 Sat by Pulse Oximetry: 100 (RA) Pulse Ox Interpretation: Normal Medical Decision Making Medical Decision Making: mild sinus headache for 2 hours flonase and motrin PRN Impression: 68 y/o female with [place] for two hours Plan: -Glucose lab -Ibuoprofen 600 mg PO Disposition Doctor Will See Patient In The: Office Counseled Patient/Family Regarding: Studies Performed, Diagnosis - Disposition Referrals: Milton Ambrosio MD [Staff Provider] - Disposition: HOME/ ROUTINE Disposition Time: 19:21 Condition: GOOD Additional Instructions: flonase spray each nostril every 12 hours motrin/advil 400-600 mg every 6 hours as needed for headache pain Follow-up with Dr. Ambrosio Prescriptions: Fluticasone Nasal [Flonase] 1 actuation NS DAILY #1 spr Instructions: Sinus Headache (DC) Forms: [facility] (Japanese) - Clinical Impression Clinical Impression: Headache - Scribe Statement The provider has reviewed the documentation as recorded by the Scribe (Leigh Ann Robison) Provider Attestation: All medical record entries made by the Scribe were at my direction and personally dictated by me. I have reviewed the chart and agree that the record accurately reflects my personal performance of the history, physical exam, medical decision making, and the department course for this patient. I have also personally directed, reviewed, and agree with the discharge instructions and disposition.
[2018-09-15 20:01] VITALS: O2SAT 100
[2018-09-16 00:03] VITALS: BP 134/90; PULSE 90; TEMP 98.8
== END 2018-09-16 | disposition home or self-care (01) ==
LOC: C.ER 18:09
DX: R51 Headache (principal)

== ENCOUNTER 2018-09-19 22:42 | Emergency (ER) | payer MEDICARE, OTHER ==
[2018-09-19 22:42] VITALS: BMI 19.8
[2018-09-19 22:58] VITALS: RESP 20
--- NOTE | 2018-09-19 23:07 | C.PDOC ---
History Of Present Illness 68 year old female brought in via EMS for a complaint of chronic bilateral hip pain. Patient has been seen consistently for ETOH and substance abuse for the past year. Patient has had multiple presents over the last 2 months claiming to have fallen, always presents with normal gait, x-rays done on 08/29/18 show baseline bilateral hip osteoarthritis. Patient claims she fell 2 days ago, was seen at [facility] where she had normal evaluation. Denies weakness or numbness. Time Seen by Provider: 09/19/18 23:02 Chief Complaint (Nursing): Lower Extremity Problem/Injury History Per: Patient History/Exam Limitations: no limitations Onset/Duration Of Symptoms: Days Current Symptoms Are (Timing): Still Present Recent travel outside of the [place]: No Past Medical History Reviewed: Historical Data, Nursing Documentation, Vital Signs Vital Signs: Last Vital Signs Temp 98.3 F 09/19/18 22:51 Pulse 96 H 09/19/18 22:51 Resp 20 09/19/18 22:51 BP 116/81 09/19/18 22:51 Pulse Ox 99 09/19/18 22:51 - Medical History PMH: Arthritis (B/L HIP), COPD, HTN Denies: Chronic Kidney Disease Surgical History: Tonsillectomy Family History: States: Unknown Family Hx - Social History Hx Tobacco Use: Yes (Light smoker <10 cigarettes daily) Hx Alcohol Use: Yes Hx Substance Use: No - Immunization History Hx Tetanus Toxoid Vaccination: Yes Hx Influenza Vaccination: Yes Hx Pneumococcal Vaccination: Yes Review Of Systems Constitutional: Negative for: Fever, Chills Cardiovascular: Negative for: Chest Pain, Palpitations Respiratory: Negative for: Cough, Shortness of Breath Gastrointestinal: Negative for: Nausea, Vomiting Musculoskeletal: Positive for: Other (Chronic bilateral hip pain) Neurological: Negative for: Weakness, Numbness Physical Exam - Physical Exam Appears: Non-toxic, Other (Bizarre, has walker with her on the gurney) Skin: Normal Color, Warm, Dry Head: Atraumatic, Normacephalic Eye(s): bilateral: Other (Pin point pupils) Oral Mucosa: Moist Chest: Symmetrical, No Tenderness Cardiovascular: Rhythm Regular Respiratory: Normal Breath Sounds, No Rales, No Rhonchi, No Wheezing Gastrointestinal/Abdominal: Soft, No Tenderness Back: No Vertebral Tenderness, No Paraspinal Tenderness Extremity: Normal ROM (x4) Neurological/Psych: Oriented x3, Normal Speech, Normal Motor, Normal Sensation Gait: Steady ED Course And Treatment O2 Sat by Pulse Oximetry: 99 (Room air) Pulse Ox Interpretation: Normal Medical Decision Making Medical Decision Making: chronic pains many recent visits for same alleged fall with osiel @ [facility]- pt goes consistently to multiple local hospitals for vague complaints no gait change from prior already has walker and tramadol pinpoint pupils suggest ongoing narcotics use. no further w/u indicated at this time. Disposition Doctor Will See Patient In The: Office Counseled Patient/Family Regarding: Studies Performed, Diagnosis - Disposition Referrals: Milton Ambrosio MD [Staff Provider] - Disposition: HOME/ ROUTINE Disposition Time: 23:07 Condition: GOOD Additional Instructions: continue normal pain medication regimen follow-up with Dr. Ambrosio Instructions: Joint Pain Forms: [employer] [facility] (Mongolian) - Clinical Impression Clinical Impression: Arthritis, Joint pain - Scribe Statement The provider has reviewed the documentation as recorded by the Scribe King Hartley All medical record entries made by the Scribe were at my direction and personally dictated by me. I have reviewed the chart and agree that the record accurately reflects my personal performance of the history, physical exam, medical decision making, and the department course for this patient. I have also personally directed, reviewed, and agree with the discharge instructions and disposition.
[2018-09-20 01:38] VITALS: BP 110/78; PULSE 82; TEMP 98; O2SAT 100
== END 2018-09-20 01:38 | disposition home or self-care (01) ==
LOC: C.ER 22:42
DX: M13.852 Other specified arthritis, left hip (principal); M13.851 Other specified arthritis, right hip; M25.552 Pain in left hip; M25.551 Pain in right hip

== ENCOUNTER 2018-09-27 12:46 | Emergency (ER) | payer MEDICARE, OTHER ==
[2018-09-27 12:46] VITALS: BMI 19.8
[2018-09-27] MEDS ORDERED: Aspirin 325 mg EC Tablets PO STA (13:35)
[2018-09-27 13:51] LABS: BASO % 0.6 % (0.0-2.0); EOS % 0.1 % (0.0-4.0); LYMPH % 26.5 % (20.0-40.0); MEAN CELL VOLUME 90.8 fL (81.0-99.0); MEAN CORPUSCULAR HEMOGLOBIN 30.2 pg (27.0-31.0); MEAN CORPUSCULAR HGB CONC 33.3 g/dL (33.0-37.0); MONO # 0.5 K/uL (0.0-0.8); MONO % 7.1 % (0.0-10.0); NEUT % 65.7 % (50.0-75.0); NRBC % 0.2 % (0.0-2.0); RBC 4.57 Mil/uL (3.80-5.20); RED CELL DISTRIBUTION WIDTH 15.1 % (11.5-14.5); WHITE BLOOD COUNT 7.7 K/uL (4.8-10.8)
[2018-09-27 13:55] LABS: HEMOGLOBIN 13.8 g/dL (11.0-16.0)
--- NOTE | 2018-09-27 13:56 | C.PDOC ---
History Of Present Illness 68 y/o female comes in with chest tightness in the center and left side of chest, non-radiating, since last night. Patient also complains of left hip pain, low back pain, and bilateral shoulder pain all starting last night. She notes the chest pain went away after 15 minutes. Today all of her pain recurred again, prompting this visit. States she has severe arthritis in the left hip, and has been told she needs hip replacement. Patient otherwise denies fever, chills, cough, dizziness, syncope, recent travel, trauma/fall, or palpitations. Patient reports current symptoms are consistent with prior COPD exacerbations. Of note, she was hospitalized for observation of vomiting last week. Currently she denies any nausea, vomiting, SOB, or diaphoresis. Patient also recently had a stress test two weeks ago which she states was negative. Time Seen by Provider: 09/27/18 13:19 Chief Complaint (Nursing): Chest Pain History Per: Patient History/Exam Limitations: no limitations Onset/Duration Of Symptoms: Mins, Intermittent Episodes Current Symptoms Are (Timing): Gone Past Medical History Reviewed: Historical Data, Nursing Documentation, Vital Signs Vital Signs: Last Vital Signs Temp 98.8 F 09/27/18 12:54 Pulse 105 H 09/27/18 12:54 Resp 18 09/27/18 12:54 BP 127/81 09/27/18 12:54 Pulse Ox 97 09/27/18 12:54 - Medical History PMH: Arthritis (B/L HIP), COPD, HTN Denies: Chronic Kidney Disease Surgical History: Tonsillectomy Family History: States: Unknown Family Hx - Social History Hx Tobacco Use: Yes (Light smoker <10 cigarettes daily) Hx Alcohol Use: Yes Hx Substance Use: No - Immunization History Hx Tetanus Toxoid Vaccination: Yes Hx Influenza Vaccination: Yes Hx Pneumococcal Vaccination: Yes Review Of Systems Except As Marked, All Systems Reviewed And Found Negative. Constitutional: Negative for: Fever, Chills, Sweats Eyes: Negative for: Vision Change Cardiovascular: Positive for: Chest Pain. Negative for: Palpitations, Light Headedness Respiratory: Negative for: Cough, Shortness of Breath Gastrointestinal: Negative for: Nausea, Vomiting Neurological: Negative for: Weakness, Numbness, Dizziness, Other (syncope) Physical Exam - Physical Exam Appears: Non-toxic, No Acute Distress Skin: Warm, Dry, No Rash Head: Atraumatic, Normacephalic Eye(s): bilateral: Normal Inspection, PERRL, EOMI Oral Mucosa: Moist Neck: Normal ROM Chest: Symmetrical, No Deformity, No Tenderness Cardiovascular: Rhythm Regular, No Murmur Respiratory: Normal Breath Sounds, No Rales, No Rhonchi, No Wheezing Gastrointestinal/Abdominal: Bowel Sounds (normal), Soft, No Tenderness, No Distention Extremity: Bilateral: Atraumatic, Normal Color And Temperature, Normal ROM Neurological/Psych: Oriented x3, Normal Speech ED Course And Treatment - Laboratory Results Result Diagrams: 09/27/18 13:43 09/27/18 13:43 ECG: Interpreted By Me, Viewed By Me ECG Rhythm: Sinus Tachycardia (at 110 bpm) Interpretation Of ECG: Normal axis, normal intervals, no ST elevations or depressions, nonspecific T wave changes O2 Sat by Pulse Oximetry: 97 (RA) Pulse Ox Interpretation: Normal - Other Rad CXR X-Ray: Read By Radiologist Interpretation: Accession No. : [id number]. Patient Name / ID : ALBARO GAMEZ / [id number]. Exam Date : 09/27/2018 13:49:57 ( Approved ). Study Comment : Sex / Age : F / 68Y. Creator : Celeste Caruso MD. Dictator : Celeste Caruso MD. Establishment Guide : Manager Massage Department : Celeste Caruso MD. Approver2 : Report Date : 09/27/2018 14:34:04. My Comment : . HISTORY: chest pain. COMPARISON: Chest x-ray performed 08/24/18. TECHNIQUE: Chest PA and lateral. FINDINGS: LUNGS: Right upper lobe rounded lucency measuring 2.0 x 1.3 cm with adjacent vague ground-glass opacity and pleural thickening. Hyperinflation may be seen in setting of COPD. Increased lucencies especially within the bilateral upper lung brody compatible with underlying emphysema. Please note that chest x-ray has limited sensitivity for the detection of pulmonary masses. PLEURA: No significant pleural effusion identified. No definite pneumothorax . CARDIOVASCULAR: Heart size appears within normal limits. Mild atherosclerotic calcification present. OSSEOUS STRUCTURES: Compression fracture lower thoracic spine, chronic. VISUALIZED UPPER ABDOMEN: Unremarkable. OTHER FINDINGS: None. IMPRESSION: Right upper lobe lucency with adjacent vague ground-glass haziness and pleural thickening. In conjunction with appearance on CT performed on 08/24/18 this finding is concerning for malignant neoplasm. Please note lucency may be incidental rather than cavitation. Correlate clinically. COPD/emphysema. Compression fracture lower thoracic spine, chronic. Medical Decision Making Medical Decision Making: Impression: Cardiac work up, r/o ACS Initial Plan: --EKG --CMP --Troponin I --Pro-BNP --UDS --CBC --Chest X-ray --Aspirin 325 mg PO Received call from radiologist Dr. Mares, CXR shows right upper lobe lucency concerning for malignancy. Recommends repeat CT imaging in 2 months and outpatient follow up. Labs reviewed, trop negative. Discussed findings with patient. All questions answered. Patient is resting comfortably, tolerating PO, and stable for discharge home. 16:[address] Aranda, notified of incidental imaging results. He confirms that patient had negative stress test 2 weeks ago, and agrees with plan to discharge patient home. Will see patient in the office this week for follow up. Disposition Discussed With : Milton Aranda (Patient to f/u w/him in 2-3 days. ) Doctor Will See Patient In The: Office Counseled Patient/Family Regarding: Studies Performed, Diagnosis, Need For Followup - Disposition Referrals: Milton Aranda MD [Staff Provider] - Disposition: HOME/ ROUTINE Disposition Time: 16:50 Condition: STABLE Additional Instructions: FRANCO IRVIN, thank you for letting us take care of you today. Your provider was Anuradha Casas MD and you were treated for BODY PAIN. The emergency medical care you received today was directed at your acute symptoms. If you were prescribed any medication, please fill it and take as directed. It may take several days for your symptoms to resolve. Return to the Emergency Department if your symptoms worsen, do not improve, or if you have any other problems. Please contact your doctor for a follow up apointment in 2-3 days. You had a chest xray done that was abnormal and you need to make sure to follow up with your doctor for referral for a possible CAT scan of your chest. Bring any paperwork you were given at discharge with you along with any medications you are taking to your follow up visit. Our treatment cannot replace ongoing medical care by a primary care provider outside of the emergency department. Thank you for allowing the [facility] team to be part of your care today. Instructions: Chronic Pain (DC), Chest Pain (DC) Forms: [employer] (Romanian) - Clinical Impression Clinical Impression: Chest discomfort, Abnormal chest xray, Chronic pain - Scribe Statement The provider has reviewed the documentation as recorded by the Renita Duff Provider Attestation: All medical record entries made by the Renita were at my direction and personally dictated by me. I have reviewed the chart and agree that the record accurately reflects my personal performance of the history, physical exam, medical decision making, and the department course for this patient. I have also personally directed, reviewed, and agree with the discharge instructions and disposition.
[2018-09-27 14:05] LABS: BLOOD UREA NITROGEN 22 mg/dL (7-17); CALCIUM 9.5 mg/dl (8.6-10.4); GFR NON-AFRICAN AMERICAN > 60
[2018-09-27 14:14] LABS: ALB/GLOB RATIO 0.9 (1.0-2.1); ALBUMIN 4.5 g/dL (3.5-5.0); ALT/SGPT 43 U/L (9-52); AST/SGOT 82 U/L (14-36)
[2018-09-27 14:15] LABS: B-TYPE NATRIURETIC PEPTIDE 67.1 pg/mL (0-900)
--- NOTE | 2018-09-27 14:37 | RAD ---
HISTORY: chest pain COMPARISON: Chest x-ray performed 08/24/18 TECHNIQUE: Chest PA and lateral FINDINGS: LUNGS: Right upper lobe rounded lucency measuring 2.0 x 1.3 cm with adjacent vague ground-glass opacity and pleural thickening. Hyperinflation may be seen in setting of COPD. Increased lucencies especially within the bilateral upper lung brody compatible with underlying emphysema. Please note that chest x-ray has limited sensitivity for the detection of pulmonary masses. PLEURA: No significant pleural effusion identified. No definite pneumothorax . CARDIOVASCULAR: Heart size appears within normal limits. Mild atherosclerotic calcification present. OSSEOUS STRUCTURES: Compression fracture lower thoracic spine, chronic. VISUALIZED UPPER ABDOMEN: Unremarkable. OTHER FINDINGS: None. IMPRESSION: Right upper lobe lucency with adjacent vague ground-glass haziness and pleural thickening. In conjunction with appearance on CT performed on 08/24/18 this finding is concerning for malignant neoplasm. Please note lucency may be incidental rather than cavitation. Correlate clinically. COPD/emphysema. Compression fracture lower thoracic spine, chronic. Findings discussed with Dr. Casas on 09/27/18 at 2:31 p.m..
[2018-09-27 14:41] VITALS: BP 126/81
[2018-09-27 14:48] LABS: BENZODIAZEPINES, UR NEGATIVE (NEGATIVE); OPIATES, UR NEGATIVE (NEGATIVE); PHENCYCLIDINE, UR NEGATIVE (NEGATIVE)
[2018-09-27 15:03] LABS: BARBITURATES, UR POSITIVE (NEGATIVE)
[2018-09-27 17:00] VITALS: PULSE 104; RESP 20; TEMP 98.1
--- NOTE | 2018-09-28 19:45 | CARD ---
APPROVED REPORT Date of service: 09/27/2018 EKG Measurement Heart [id number] <Conclusion> Sinus tachycardia Right atrial enlargement Nonspecific T wave abnormality Abnormal ECG
[2018-09-29 03:18] VITALS: O2SAT 97
== END 2018-09-27 17:27 | disposition home or self-care (01) ==
LOC: C.ER 12:46
DX: R07.9 Chest pain, unspecified (principal); R91.8 Other nonspecific abnormal finding of lung field; G89.29 Other chronic pain; I10 Essential (primary) hypertension; J44.9 Chronic obstructive pulmonary disease, unspecified; M16.0 Bilateral primary osteoarthritis of hip; F17.210 Nicotine dependence, cigarettes, uncomplicated
CPT/HCPCS: 71046; 80053; 83880; 84484; 85025; 93005; 99285; G0480

== ENCOUNTER 2018-09-29 17:48 | Emergency (ER) | payer MEDICARE, OTHER ==
[2018-09-29 17:49] VITALS: BMI 19.8
[2018-09-29] MEDS ORDERED: Sodium Chloride 0.9% 1,000 ML IV ONE (18:14)
--- NOTE | 2018-09-29 18:27 | C.PDOC ---
History Of Present Illness 68 y/o female with history of ETOH abuse presents to ED with c/o abdominal pain for 2 days associated with vomiting. Patient has been seen at ED numerous times with random complaints. Patient denies fever, chills, diarrhea, back pain, dysuria or any other complaints at this time. Time Seen by Provider: 09/29/18 17:56 Chief Complaint (Nursing): Abdominal Pain History Per: Patient History/Exam Limitations: no limitations Onset/Duration Of Symptoms: Days Current Symptoms Are (Timing): Still Present Past Medical History Reviewed: Historical Data, Nursing Documentation, Vital Signs Vital Signs: Last Vital Signs Temp 98 F 09/29/18 18:03 Pulse 84 09/29/18 18:03 Resp 20 09/29/18 18:03 BP 136/82 09/29/18 18:03 Pulse Ox 96 09/29/18 18:03 - Medical History PMH: Arthritis (B/L HIP), COPD, HTN Surgical History: Tonsillectomy Family History: States: No Known Family Hx - Social History Hx Tobacco Use: Yes (Light smoker <10 cigarettes daily) Hx Alcohol Use: Yes Hx Substance Use: No - Immunization History Hx Tetanus Toxoid Vaccination: Yes Hx Influenza Vaccination: Yes Hx Pneumococcal Vaccination: Yes Review Of Systems Constitutional: Negative for: Fever, Chills Gastrointestinal: Positive for: Vomiting, Abdominal Pain. Negative for: Diarrhea Genitourinary: Negative for: Dysuria, Hematuria Skin: Negative for: Rash Physical Exam - Physical Exam Appears: Non-toxic, No Acute Distress Skin: Warm, Dry, No Rash Head: Atraumatic, Normacephalic Eye(s): bilateral: Normal Inspection Cardiovascular: Rhythm Regular Respiratory: Normal Breath Sounds, No Rales, No Rhonchi, No Wheezing Gastrointestinal/Abdominal: Soft, Tenderness (minimal epigastric), No Guarding, No Rebound Back: No CVA Tenderness Extremity: Normal ROM, Capillary Refill (<2 seconds) Neurological/Psych: Oriented x3, Normal Speech, Normal Cognition ED Course And Treatment - Laboratory Results Result Diagrams: 09/29/18 19:25 09/29/18 19:25 O2 Sat by Pulse Oximetry: 96 (RA) Pulse Ox Interpretation: Normal Medical Decision Making Medical Decision Making: Patient is eating turkey sandwich in no acute distress, cleared for discharge. labs neg. urine ?pos. will treat. pt observed sleepgin in nad. Disposition - Disposition Referrals: Ritesh Ledesma MD [Staff Provider] - Disposition: HOME/ ROUTINE Disposition Time: 22:00 Condition: STABLE Additional Instructions: follow up with specialist. return to er with worsening. Prescriptions: Nitrofurantoin Macrocrystals [Macrobid] 100 mg PO BID #14 cap Instructions: Acute Abdomen (Belly Pain) Forms: [facility] [facility] (Latvian) - Clinical Impression Clinical Impression: UTI (urinary tract infection), Abdominal pain - Scribe Statement The provider has reviewed the documentation as recorded by the Scribgrant Tello All medical record entries made by the Jenaroibgrant were at my direction and personally dictated by me. I have reviewed the chart and agree that the record accurately reflects my personal performance of the history, physical exam, medical decision making, and the department course for this patient. I have also personally directed, reviewed, and agree with the discharge instructions and disposition.
[2018-09-29] MEDS ORDERED: Sodium Chloride 0.9% 1,000 ML ONE (18:31)
[2018-09-29 19:31] LABS: BASO # 0.1 K/uL (0.0-0.2); BASO % 1.5 % (0.0-2.0); EOS # 0.1 K/uL (0.0-0.7); EOS % 0.6 % (0.0-4.0); HEMOGLOBIN 12.7 g/dL (11.0-16.0); LYMPH # 2.9 K/uL (1.0-4.3); LYMPH % 31.7 % (20.0-40.0); MEAN CELL VOLUME 90.6 fL (81.0-99.0); MEAN CORPUSCULAR HEMOGLOBIN 29.9 pg (27.0-31.0); MEAN PLATELET VOLUME 9.5 fL (7.2-11.7); MONO # 0.6 K/uL (0.0-0.8); MONO % 6.5 % (0.0-10.0); NEUT # 5.5 K/uL (1.8-7.0); NEUT % 59.7 % (50.0-75.0); NRBC % 0.1 % (0.0-2.0); RBC 4.23 Mil/uL (3.80-5.20); RED CELL DISTRIBUTION WIDTH 15.3 % (11.5-14.5); WHITE BLOOD COUNT 9.2 K/uL (4.8-10.8)
[2018-09-29 19:45] LABS: ALBUMIN 4.2 g/dL (3.5-5.0); ALT/SGPT 47 U/L (9-52); AST/SGOT 67 U/L (14-36); BLOOD UREA NITROGEN 22 mg/dL (7-17); GFR NON-AFRICAN AMERICAN > 60; LIPASE 139 U/L (23-300)
[2018-09-29 19:49] LABS: PROTHROMBIN TIME 11.3 SECONDS (9.7-12.2)
[2018-09-29 22:37] VITALS: BP 145/84; PULSE 90; RESP 18; TEMP 98.5
[2018-09-29 22:46] LABS: SQUAMOUS EPITHIAL 2 /hpf (0-5); URINE BILIRUBIN NEGATIVE (NEGATIVE); URINE BLOOD NEGATIVE (NEGATIVE); URINE CLARITY Clear (Clear); URINE COLOR Amber (YELLOW); URINE GLUCOSE (UA) NORMAL (Normal); URINE LEUKOCYTE ESTERASE 3+ Leu/uL (Negative); URINE PROTEIN NEGATIVE (NEGATIVE)
[2018-09-29 23:43] VITALS: O2SAT 96
== END 2018-09-30 00:08 | disposition home or self-care (01) ==
LOC: C.ER 17:48
DX: N39.0 Urinary tract infection, site not specified (principal); R10.9 Unspecified abdominal pain; I10 Essential (primary) hypertension; J44.9 Chronic obstructive pulmonary disease, unspecified; Z87.891 Personal history of nicotine dependence
CPT/HCPCS: 80053; 81001; 82948; 83690; 85025; 85610; 85730; 96361; 96374; 96375; 99284; C9113; J2405; J7030

== ENCOUNTER 2018-09-30 22:38 | Emergency (ER) | payer MEDICARE, OTHER ==
[2018-09-30 22:38] VITALS: BMI 19.8
[2018-09-30 23:00] VITALS: O2SAT 100
[2018-09-30 23:39] LABS: SQUAMOUS EPITHIAL 3 /hpf (0-5); URINE BACTERIA RARE (<OCC); URINE BILIRUBIN NEGATIVE (NEGATIVE); URINE CLARITY Hazy (Clear); URINE COLOR Yellow (YELLOW); URINE GLUCOSE (UA) NORMAL (Normal); URINE LEUKOCYTE ESTERASE 3+ Leu/uL (Negative); URINE PROTEIN NEGATIVE (NEGATIVE)
[2018-09-30 23:40] LABS: URINE BLOOD 1+ (NEGATIVE)
[2018-10-01 02:15] VITALS: BP 136/85; PULSE 86; RESP 14; TEMP 97.9
--- NOTE | 2018-10-01 02:32 | C.PDOC ---
History Of Present Illness 68 year old female with history of alcohol abuse and homelessness presents to the ED complaining of bilateral leg pain and back pain for 2 days. Patient was seen in the ED yesterday and did not complain the symptoms. Patient was diagnosed with UTI yesterday. Jacqueline any urinary symptoms. Time Seen by Provider: 09/30/18 23:07 Chief Complaint (Nursing): Lower Extremity Problem/Injury History Per: Patient History/Exam Limitations: no limitations Onset/Duration Of Symptoms: Days (2) Current Symptoms Are (Timing): Still Present Additional History Per: Prior Records Past Medical History Reviewed: Historical Data, Nursing Documentation, Vital Signs Vital Signs: Last Vital Signs Temp 97.9 F 10/01/18 02:14 Pulse 86 10/01/18 02:14 Resp 14 10/01/18 02:14 BP 136/85 10/01/18 02:14 Pulse Ox 100 10/01/18 02:14 - Medical History PMH: Arthritis (B/L HIP), COPD, HTN Surgical History: Tonsillectomy Family History: States: No Known Family Hx - Social History Hx Tobacco Use: Yes (Light smoker <10 cigarettes daily) Hx Alcohol Use: Yes Hx Substance Use: No - Immunization History Hx Tetanus Toxoid Vaccination: Yes Hx Influenza Vaccination: Yes Hx Pneumococcal Vaccination: Yes Review Of Systems Except As Marked, All Systems Reviewed And Found Negative. Constitutional: Negative for: Fever, Chills Gastrointestinal: Negative for: Nausea, Vomiting, Diarrhea Genitourinary: Negative for: Dysuria, Hematuria, Vaginal Discharge Musculoskeletal: Positive for: Back Pain, Leg Pain (b/l ) Physical Exam - Physical Exam Appears: Non-toxic Skin: Warm, Dry, No Rash Head: Normacephalic Nose: Normal Oral Mucosa: Moist Neck: Supple Cardiovascular: Rhythm Regular Respiratory: Normal Breath Sounds, No Rales, No Rhonchi, No Wheezing Gastrointestinal/Abdominal: Soft, No Tenderness Back: No CVA Tenderness, Other (diffused lower back tenderness) Extremity: Normal ROM, No Deformity, No Swelling Neurological/Psych: Oriented x3, Normal Speech Gait: Other (ambulatory) ED Course And Treatment O2 Sat by Pulse Oximetry: 100 (RA) Pulse Ox Interpretation: Normal Progress Note: LS spine ordered and reviewed - shows severed DJD. Urine collected and sent to the lab for analysis - positive UTI. Culture sent. Patient given Toradol 30mg IM and Macrobid 100mg PO. On re-evaluation, patient feels better, stable for discharge. Disposition - Disposition Disposition: HOME/ ROUTINE Disposition Time: 05:44 Condition: STABLE Additional Instructions: Follow up with your PMD within 1-2 days. Return to ED if feel worse. take all medications as prescribed. Prescriptions: Naproxen [Naprosyn] 1 tab PO BID PRN #25 tab PRN Reason: Pain Forms: [employer] ([employer]) - Clinical Impression Clinical Impression: Chronic pain disorder, Low back pain - PA / CONTROL TECHNICIAN / Resident Statement MD/DO has reviewed & agrees with the documentation as recorded. - Scribe Statement The provider has reviewed the documentation as recorded by the Scribe Autumn Higgins All medical record entries made by the Renita were at my direction and personally dictated by me. I have reviewed the chart and agree that the record accurately reflects my personal performance of the history, physical exam, medical decision making, and the department course for this patient. I have also personally directed, reviewed, and agree with the discharge instructions and disposition.
--- NOTE | 2018-10-01 15:17 | RAD ---
Date of service: 10/01/2018 PROCEDURE: Radiographs of the Lumbar Spine. HISTORY: pain COMPARISON: Comparison made with radiographs of lumbar spine 08/17/2018 FINDINGS: BONES: Chronic anterior wedge compression deformity of the L3 segment with minimal retropulsion posterior superior corner of this segment... There is mild anterior subluxation of L4 over L5. Slight posterior subluxation DISC SPACES: Moderate to significant multilevel degenerative spondylosis. There is mild dextroscoliosis centered at the L1-L2 level.. . OTHER FINDINGS: None. IMPRESSION: Chronic anterior wedge compression fracture L3 segment with minimal retropulsion posterior superior corner. Slight anterior subluxation L4 over L5. Moderate to significant multilevel degenerative spondylosis with mild dextroscoliosis
== END 2018-10-01 05:35 | disposition home or self-care (01) ==
LOC: C.ER 22:38
DX: G89.29 Other chronic pain (principal); M54.5 Low back pain
CPT/HCPCS: 72100; 81001; 87086; 96372; 99284; J1885

== ENCOUNTER 2018-10-02 18:37 | Emergency (ER) | payer MEDICARE, OTHER ==
[2018-10-02 18:38] VITALS: BMI 19.8
[2018-10-02 19:33] VITALS: RESP 20
--- NOTE | 2018-10-02 21:19 | C.PDOC ---
History Of Present Illness 68 year old female with PMHx of chronic back pain presents to the ED complaining of back pain and bilateral extremity pain. Denies any weakness, numbness, incontinence, or any other associated symptoms. Denies any new trauma or falls. History of homelessness. Chief Complaint (Nursing): Back Pain History Per: Patient History/Exam Limitations: no limitations Current Symptoms Are (Timing): Still Present Previous Symptoms: Chronic Pain Associated Symptoms: None Past Medical History Reviewed: Historical Data, Nursing Documentation, Vital Signs Vital Signs: Last Vital Signs Temp 98.2 F 10/02/18 19:30 Pulse 96 H 10/02/18 19:30 Resp 20 10/02/18 19:30 BP 146/96 H 10/02/18 19:30 Pulse Ox 99 10/02/18 19:30 - Medical History PMH: Arthritis (B/L HIP), COPD, HTN Surgical History: Tonsillectomy Family History: States: No Known Family Hx - Social History Hx Tobacco Use: Yes (Light smoker <10 cigarettes daily) Hx Alcohol Use: Yes Hx Substance Use: No - Immunization History Hx Tetanus Toxoid Vaccination: Yes Hx Influenza Vaccination: Yes Hx Pneumococcal Vaccination: Yes Review Of Systems Except As Marked, All Systems Reviewed And Found Negative. Genitourinary: Negative for: Incontinence Musculoskeletal: Positive for: Back Pain, Leg Pain (b/l) Neurological: Negative for: Weakness, Numbness Physical Exam - Physical Exam Appears: Non-toxic, Other (resting comfortably, sleepy ) Skin: Warm, Dry Head: Normacephalic Eye(s): bilateral: Normal Inspection Nose: Normal Oral Mucosa: Moist Neck: Normal ROM, Supple Chest: Symmetrical Cardiovascular: Rhythm Regular Respiratory: Normal Breath Sounds, No Rales, No Rhonchi, No Wheezing Back: No CVA Tenderness, No Vertebral Tenderness, No Paraspinal Tenderness Extremity: Normal ROM, No Tenderness, Capillary Refill (less than 2 secs to b/l lower extremities ), No Deformity, No Swelling Extremity: Bilateral: Atraumatic, Normal Color And Temperature, Normal ROM Pulses: Left Dorsalis Pedis: Normal, Right Dorsalis Pedis: Normal Neurological/Psych: Oriented x3, Normal Speech, Normal Motor, Normal Sensation, Normal Reflexes Gait: Steady ED Course And Treatment - Laboratory Results Result Diagrams: 10/02/18 22:57 10/02/18 22:57 O2 Sat by Pulse Oximetry: 99 (RA) Pulse Ox Interpretation: Normal Medical Decision Making Medical Decision Making: Plan - Bloodwork - Toradol 30mg IM - UA Disposition Counseled Patient/Family Regarding: Diagnosis - Disposition Referrals: [facility] [Outside] Disposition: HOME/ ROUTINE Disposition Time: 01:13 Condition: STABLE Prescriptions: Ciprofloxacin [Cipro] 1 tab PO BID #14 tab Naproxen 500 mg PO BID #20 tab Instructions: Low Back Pain (DC), Urinary Tract Infection, Adult (DC) Forms: [employer] (Lao) - POA Present On Arrival: None - Clinical Impression Clinical Impression: Back pain, UTI (urinary tract infection) - Scribe Statement The provider has reviewed the documentation as recorded by the Jenaroibgrant Arrieta
[2018-10-02 23:01] LABS: BASO # 0.1 K/uL (0.0-0.2); EOS # 0.1 K/uL (0.0-0.7); HEMOGLOBIN 12.6 g/dL (11.0-16.0); LYMPH # 2.8 K/uL (1.0-4.3); LYMPH % 40.5 % (20.0-40.0); MEAN CORPUSCULAR HEMOGLOBIN 29.6 pg (27.0-31.0); MEAN CORPUSCULAR HGB CONC 31.9 g/dL (33.0-37.0); MEAN PLATELET VOLUME 9.9 fL (7.2-11.7); MONO # 0.4 K/uL (0.0-0.8); MONO % 5.4 % (0.0-10.0); NEUT # 3.5 K/uL (1.8-7.0); NEUT % 51.1 % (50.0-75.0); NRBC % 0.2 % (0.0-2.0); RBC 4.24 Mil/uL (3.80-5.20); RED CELL DISTRIBUTION WIDTH 15.5 % (11.5-14.5)
[2018-10-02 23:14] LABS: ALT/SGPT 40 U/L (9-52); AST/SGOT 57 U/L (14-36); BLOOD UREA NITROGEN 12 mg/dL (7-17); CALCIUM 9.1 mg/dl (8.6-10.4); GFR NON-AFRICAN AMERICAN > 60
[2018-10-03] LABS: BARBITURATES, UR NEGATIVE (NEGATIVE); BENZODIAZEPINES, UR NEGATIVE (NEGATIVE); OPIATES, UR NEGATIVE (NEGATIVE); PHENCYCLIDINE, UR NEGATIVE (NEGATIVE)
[2018-10-03 00:05] LABS: SQUAMOUS EPITHIAL < 1 /hpf (0-5); URINE BILIRUBIN NEGATIVE (NEGATIVE); URINE BLOOD 1+ (NEGATIVE); URINE CLARITY Clear (Clear); URINE COLOR Straw (YELLOW); URINE GLUCOSE (UA) NORMAL (Normal); URINE LEUKOCYTE ESTERASE 1+ Leu/uL (Negative); URINE PROTEIN NEGATIVE (NEGATIVE); URINE UROBILINOGEN NORMAL mg/dL (0.2-1.0)
[2018-10-03] MEDS ORDERED: Tmp-Smz 800 mg-160 mg DS Tab ONE (01:46)
[2018-10-03 01:50] VITALS: BP 141/90; PULSE 92; TEMP 98.3; O2SAT 100
== END 2018-10-03 01:59 | disposition home or self-care (01) ==
LOC: C.ER 18:37
DX: N39.0 Urinary tract infection, site not specified (principal); M54.9 Dorsalgia, unspecified
CPT/HCPCS: 80053; 81001; 85025; 87086; 96372; 99285; G0480; J1885

== ENCOUNTER 2018-10-10 15:17 | Emergency (ER) | payer MEDICARE, OTHER ==
[2018-10-10 15:17] VITALS: BMI 19.8
--- NOTE | 2018-10-10 16:01 | C.PDOC ---
History Of Present Illness 68yo female, comes to ER reporting multiple complaints including chest pain, shortness of breath, chronic back pain and vomiting. Patient unsure of exact onset of her symptoms. She is well known to this ER and has had frequent evalua tions at [facility] as well as [facility] for similar complaints. Patient states she was given Zofran at [facility] but vomited after that as well. She has no new complaints. Time Seen by Provider: 10/10/18 15:23 History Per: Patient History/Exam Limitations: no limitations Onset/Duration Of Symptoms: Unknown Past Medical History Reviewed: Historical Data, Nursing Documentation, Vital Signs Vital Signs: Last Vital Signs Temp 98.5 F 10/10/18 15:39 Pulse 90 10/10/18 15:39 Resp 18 10/10/18 15:39 BP 158/88 H 10/10/18 15:39 Pulse Ox 98 10/10/18 15:39 - Medical History PMH: Arthritis (B/L HIP), COPD, HTN Denies: Chronic Kidney Disease Surgical History: Tonsillectomy Family History: States: No Known Family Hx - Social History Hx Tobacco Use: Yes (Light smoker <10 cigarettes daily) Hx Alcohol Use: Yes Hx Substance Use: No - Immunization History Hx Tetanus Toxoid Vaccination: Yes Hx Influenza Vaccination: Yes Hx Pneumococcal Vaccination: Yes Review Of Systems Except As Marked, All Systems Reviewed And Found Negative. (per HPI) Cardiovascular: Positive for: Chest Pain Respiratory: Positive for: Shortness of Breath Gastrointestinal: Positive for: Vomiting Physical Exam - Physical Exam Appears: Non-toxic, No Acute Distress, Other (patient concerned about her pain) Head: Atraumatic, Normacephalic Neck: Normal ROM, Supple Chest: Symmetrical Cardiovascular: Rhythm Regular Respiratory: Normal Breath Sounds, No Rales, No Rhonchi, No Wheezing Gastrointestinal/Abdominal: Normal Exam, Soft, No Tenderness Neurological/Psych: Oriented x3 ED Course And Treatment - Laboratory Results Result Diagrams: 10/10/18 17:26 10/10/18 17:26 ECG: Interpreted By Me, Viewed By Me ECG Rhythm: Sinus Rhythm ECG Interpretation: Normal Rate From EC O2 Sat by Pulse Oximetry: 98 (RA) Pulse Ox Interpretation: Normal - Other Rad CXR X-Ray: Interpreted by Me (negative) Progress - Re-Evaluation Re-evaluation Note: 10/10/18 19:07 APPEARS COMFORTABLE NADKatherine RICHARDS. - Data Reviewed Data Reviewed: Lab, Diagnostic imaging, EKG, Old records Medical Decision Making Medical Decision Making: Impression: 68yo female with multiple complaints including chest pain and shortness of breath for an unknown duration Prior records reviewed, patient has had multiple workups recently at [facility]. Plan: -- Labs -- CXR -- Compazine 10mg PO Disposition Counseled Patient/Family Regarding: Studies Performed, Diagnosis - Disposition Disposition: HOME/ ROUTINE Disposition Time: 19:08 Condition: GOOD Instructions: Chronic Pain (DC) - Clinical Impression Clinical Impression: Chronic pain disorder - Scribe Statement The provider has reviewed the documentation as recorded by the Renita Hoang Provider Attestation: All medical record entries made by the Renita were at my direction and personally dictated by me. I have reviewed the chart and agree that the record accurately reflects my personal performance of the history, physical exam, medical decision making, and the department course for this patient. I have also personally directed, reviewed, and agree with the discharge instructions and disposition.
--- NOTE | 2018-10-10 16:21 | RAD ---
Date of service: 10/10/2018 HISTORY: Chest pain comparison made with prior chest radiograph 09/27/2018 COMPARISON: FINDINGS: LUNGS: Mild right apical pleural thickening and adjacent parenchymal scarring changes. PLEURA: No significant pleural effusion identified, no pneumothorax apparent. CARDIOVASCULAR: No aortic atherosclerotic calcification present. Normal cardiac size. No pulmonary vascular congestion. OSSEOUS STRUCTURES: No significant abnormalities. VISUALIZED UPPER ABDOMEN: Normal. OTHER FINDINGS: None. IMPRESSION: Mild right apical pleural thickening and adjacent parenchymal scarring
[2018-10-10 17:40] LABS: BASO # 0.1 K/uL (0.0-0.2); EOS # 0.1 K/uL (0.0-0.7); EOS % 1.1 % (0.0-4.0); HEMOGLOBIN 12.2 g/dL (11.0-16.0); LYMPH # 2.8 K/uL (1.0-4.3); LYMPH % 39.8 % (20.0-40.0); MEAN CELL VOLUME 89.4 fL (81.0-99.0); MEAN CORPUSCULAR HEMOGLOBIN 29.1 pg (27.0-31.0); MEAN CORPUSCULAR HGB CONC 32.5 g/dL (33.0-37.0); MEAN PLATELET VOLUME 9.4 fL (7.2-11.7); MONO # 0.5 K/uL (0.0-0.8); MONO % 6.8 % (0.0-10.0); NEUT # 3.6 K/uL (1.8-7.0); NEUT % 51.3 % (50.0-75.0); NRBC % 0.1 % (0.0-2.0); RBC 4.2 Mil/uL (3.80-5.20); RED CELL DISTRIBUTION WIDTH 15.1 % (11.5-14.5); WHITE BLOOD COUNT 6.9 K/uL (4.8-10.8)
[2018-10-10 17:55] LABS: BLOOD UREA NITROGEN 12 mg/dL (7-17); GFR NON-AFRICAN AMERICAN > 60
[2018-10-11 00:37] VITALS: BP 163/101; PULSE 98; RESP 18; TEMP 98.7; O2SAT 96
== END 2018-10-10 23:26 | disposition home or self-care (01) ==
LOC: C.ER 15:17
DX: G89.29 Other chronic pain (principal)
CPT/HCPCS: 71045; 80048; 84484; 85025; 93005; 96372; 99284; J0780

== ENCOUNTER 2018-10-14 12:05 | Emergency (ER) | payer MEDICARE, OTHER ==
[2018-10-14 12:05] VITALS: BMI 19.8
[2018-10-14 12:33] VITALS: TEMP 97.5
--- NOTE | 2018-10-14 13:13 | C.PDOC ---
History Of Present Illness 68 year old female presents to the ED requesting help learning how to use her spiriva inhaler that she was prescribed yesterday. Patient was evaluated in the ED yesterday, patient has multiple visits to the ED with minor complaints. Patient has poor insight and poor medication compliance. Patient denies fever, chills, SOB, CP, palpitations, wheezing, rash, weakness, numbness. Time Seen by Provider: 10/14/18 13:05 Chief Complaint (Nursing): Shortness Of Breath History Per: Patient History/Exam Limitations: no limitations Onset/Duration Of Symptoms: Hrs Current Symptoms Are (Timing): Still Present Initiating Event: Upper Respiratory Illness Quality: Other Current Respiratory Medications: See Home Med List Reports Recently: Seen In ED Recent travel outside of the [place]: No Additional History Per: Patient Past Medical History Reviewed: Historical Data, Nursing Documentation, Vital Signs Vital Signs: Last Vital Signs Temp 97.5 F L 10/14/18 12:30 Pulse 104 H 10/14/18 12:30 Resp 18 10/14/18 12:30 BP 174/109 H 10/14/18 12:30 Pulse Ox 99 10/14/18 12:30 - Medical History PMH: Arthritis (B/L HIP), COPD, HTN Denies: Chronic Kidney Disease Surgical History: Tonsillectomy Family History: States: Unknown Family Hx - Social History Hx Tobacco Use: Yes (Light smoker <10 cigarettes daily) Hx Alcohol Use: Yes Hx Substance Use: No - Immunization History Hx Tetanus Toxoid Vaccination: Yes Hx Influenza Vaccination: Yes Hx Pneumococcal Vaccination: Yes Review Of Systems Constitutional: Negative for: Fever, Chills Cardiovascular: Negative for: Chest Pain, Palpitations Respiratory: Negative for: Cough, Shortness of Breath, Wheezing Gastrointestinal: Negative for: Nausea, Vomiting, Abdominal Pain Skin: Negative for: Rash Neurological: Negative for: Weakness, Numbness, Headache, Dizziness Physical Exam - Physical Exam Appears: Non-toxic, No Acute Distress, Other (loud talkative voice) Skin: Normal Color, Warm, Dry Head: Atraumatic, Normacephalic Eye(s): bilateral: Normal Inspection Oral Mucosa: Moist Neck: Normal ROM, Supple Chest: Symmetrical Cardiovascular: Rhythm Regular Respiratory: Normal Breath Sounds, No Rales, No Rhonchi, No Wheezing Gastrointestinal/Abdominal: Soft, No Tenderness, No Guarding, No Rebound Extremity: Normal ROM, No Tenderness, No Swelling Neurological/Psych: Oriented x3, Normal Speech, Normal Cognition Gait: Steady ED Course And Treatment O2 Sat by Pulse Oximetry: 99 (ON RA) Pulse Ox Interpretation: Normal Medical Decision Making Medical Decision Making: instructed how to use her new Spiriva inhaler clear lungs normal bp continue same meds, compliance reinforced visiting ED by ambulance essentially daily ? malingering vs underlying psych/dementia Disposition Doctor Will See Patient In The: Office Counseled Patient/Family Regarding: Studies Performed, Diagnosis - Disposition Referrals: iMlton Ambrosio MD [Staff Provider] - Disposition: HOME/ ROUTINE Disposition Time: 13:12 Condition: GOOD Additional Instructions: metered dose inhaler technique as directed Please present to your PMD/Dr. Ambrosio IN HIS OFFICE FOR YOUR REGULAR DAILY QUESITONS AND EVALUATIONS Instructions: Medicines for Chronic Obstructive Pulmonary Disease (COPD) Forms: [employer] (Greek) - Clinical Impression Clinical Impression: Inhaler technique demonstrated by provider - Scribe Statement The provider has reviewed the documentation as recorded by the Scribe Chan Gillette All medical record entries made by the Scribe were at my direction and personally dictated by me. I have reviewed the chart and agree that the record accurately reflects my personal performance of the history, physical exam, medical decision making, and the department course for this patient. I have also personally directed, reviewed, and agree with the discharge instructions and disposition.
[2018-10-14 13:20] VITALS: RESP 16
[2018-10-14 13:25] VITALS: BP 177/86; PULSE 81
[2018-10-14 14:09] VITALS: O2SAT 99
--- NOTE | 2018-10-17 19:45 | CARD ---
APPROVED REPORT Date of service: 10/14/2018 EKG Measurement Heart [id number] <Conclusion> Normal sinus rhythm Possible Left atrial enlargement Nonspecific T wave abnormality Abnormal ECG
== END 2018-10-14 13:22 | disposition home or self-care (01) ==
LOC: C.ER 12:05
DX: J44.9 Chronic obstructive pulmonary disease, unspecified (principal); I10 Essential (primary) hypertension; F17.210 Nicotine dependence, cigarettes, uncomplicated

== ENCOUNTER 2018-10-15 15:00 | Emergency (ER) | payer MEDICARE, OTHER ==
[2018-10-15 15:00] VITALS: BMI 19.8
--- NOTE | 2018-10-15 18:20 | C.PDOC ---
History Of Present Illness 68 yr old female w/ hx of COPD, HTN, HLD, p/w chest pain and sob x2d. Also notes a mild non-productive cough. No abdominal pain. Pt notes chest pain only when she coughs, non pleuritic. No WOOD. No abdominal pain. No orthopnea, pnd or leg swelling. No fever, chills or night sweats. No constipation or diarrhea. no fall or trauma. Chest pain is center of chest, stabbing, worse when she presses on it. No other complaints Time Seen by Provider: 10/15/18 18:20 Chief Complaint (Nursing): Chest Pain Past Medical History Vital Signs: Last Vital Signs Temp 99.4 F 10/15/18 15:58 Pulse 108 H 10/15/18 15:58 Resp 20 10/15/18 15:58 BP 146/82 10/15/18 15:58 Pulse Ox 99 10/15/18 15:58 - Medical History PMH: Arthritis (B/L HIP), COPD, HTN Denies: Chronic Kidney Disease Surgical History: Tonsillectomy Family History: States: Unknown Family Hx - Social History Hx Tobacco Use: Yes (Light smoker <10 cigarettes daily) Hx Alcohol Use: Yes Hx Substance Use: No - Immunization History Hx Tetanus Toxoid Vaccination: Yes Hx Influenza Vaccination: Yes Hx Pneumococcal Vaccination: Yes Review Of Systems Constitutional: Negative for: Fever, Chills, Sweats Eyes: Negative for: Pain, Vision Change ENT: Negative for: Ear Pain, Ear Discharge, Nose Congestion, Mouth Pain Cardiovascular: Positive for: Chest Pain. Negative for: Palpitations, Orthopnea, Paroxysmal Noc. Dyspnea, Edema Respiratory: Positive for: Cough, Shortness of Breath. Negative for: Hemoptysis, SOB with Excertion, Pleuritic Pain, Sputum Gastrointestinal: Negative for: Nausea, Vomiting, Abdominal Pain, Constipation, Melena Genitourinary: Negative for: Dysuria, Hematuria, Vaginal Discharge Musculoskeletal: Negative for: Neck Pain, Shoulder Pain Skin: Negative for: Rash, Lesions, Jaundice Neurological: Negative for: Weakness, Numbness, Altered Mental Status, Headache Psych: Negative for: Anxiety Physical Exam - Physical Exam Appears: Well, Non-toxic, No Acute Distress Skin: Normal Color, Warm, Dry Head: Atraumatic, Normacephalic Eye(s): bilateral: Normal Inspection, PERRL, EOMI Ear(s): Bilateral: Normal Nose: Normal, No Flaring, No Discharge Oral Mucosa: Moist Tongue: Normal Appearing Lips: Normal Appearing Teeth: Normal Dentition Gingiva: Normal Appearing Throat: Normal, No Erythema, No Exudate Neck: Normal, Normal ROM, Supple, Other (no meningeal signs) Chest: Symmetrical, No Deformity Cardiovascular: Rhythm Regular Respiratory: Normal Breath Sounds, No Decreased Breath Sounds, No Accessory Muscle Use, No Rales, No Rhonchi, No Stridor, No Wheezing, No Plerual Rub Gastrointestinal/Abdominal: Normal Exam, Soft, No Tenderness Back: Normal Inspection, No CVA Tenderness Extremity: Normal ROM, No Pedal Edema Pulses: Left Dorsalis Pedis: Normal, Right Dorsalis Pedis: Normal Neurological/Psych: Oriented x3, Normal Speech, Normal Cognition Gait: Steady Extremity: Right: No Drift, Left: No Drift, Upper: No Drift, Lower: No Drift ED Course And Treatment - Laboratory Results Result Diagrams: 10/15/18 20:05 10/15/18 20:05 O2 Sat by Pulse Oximetry: 99 Medical Decision Making Medical Decision Makin yr old female w/ hx of COPD, HTN, HLD p/w chest pain and sob. Non pleuritic w/ out edema. No abdominal pain, constipation or diarrhea. CP reproducible to palpation, likely MSK. No hx of stents or [place] or stroke. No wheezes on exam. Well appearing in NAD. Heart score: Age: 1 RF: 2 EK Troponin: pending Story: 0 EK, sinus tachy, no stemi pending imaging and labs 2045 troponin, xray negative: low risk cp, to f/u outpt w/ cards pt in NAD pain improved, clear for d/c home Disposition - Disposition Disposition Time: 20:51 Condition: GOOD Forms: [employer] (Colombian) - Clinical Impression Clinical Impression: Chest pain
[2018-10-15 19:32] VITALS: PULSE 99; RESP 18; TEMP 98.5
[2018-10-15 20:08] LABS: BASO # 0.1 K/uL (0.0-0.2); BASO % 1.1 % (0.0-2.0); EOS # 0.1 K/uL (0.0-0.7); EOS % 0.7 % (0.0-4.0); HEMOGLOBIN 12.2 g/dL (11.0-16.0); LYMPH # 3.9 K/uL (1.0-4.3); LYMPH % 41.1 % (20.0-40.0); MEAN CELL VOLUME 90.1 fL (81.0-99.0); MEAN CORPUSCULAR HEMOGLOBIN 29.7 pg (27.0-31.0); MEAN CORPUSCULAR HGB CONC 32.9 g/dL (33.0-37.0); MEAN PLATELET VOLUME 9.2 fL (7.2-11.7); MONO # 0.5 K/uL (0.0-0.8); NEUT # 4.9 K/uL (1.8-7.0); NEUT % 52.1 % (50.0-75.0); RBC 4.1 Mil/uL (3.80-5.20); RED CELL DISTRIBUTION WIDTH 14.4 % (11.5-14.5); WHITE BLOOD COUNT 9.4 K/uL (4.8-10.8)
[2018-10-15 20:23] LABS: ALT/SGPT 37 U/L (9-52); AST/SGOT 53 U/L (14-36); BLOOD UREA NITROGEN 17 mg/dL (7-17); CALCIUM 9.2 mg/dl (8.6-10.4); GFR NON-AFRICAN AMERICAN > 60
[2018-10-15 21:34] VITALS: BP 133/90; O2SAT 100
--- NOTE | 2018-10-16 17:19 | RAD ---
Date of service: 10/15/2018 HISTORY: cp COMPARISON: 10/10/2018 TECHNIQUE: Chest PA and lateral FINDINGS: LUNGS: No active pulmonary disease. PLEURA: No significant pleural effusion identified. No pneumothorax apparent. CARDIOVASCULAR: No aortic atherosclerotic calcification present. Normal cardiac size. No pulmonary vascular congestion. OSSEOUS STRUCTURES: No significant abnormalities. VISUALIZED UPPER ABDOMEN: Normal. OTHER FINDINGS: None. IMPRESSION: No active disease.
--- NOTE | 2018-10-17 21:02 | CARD ---
APPROVED REPORT Date of service: 10/15/2018 EKG Measurement Heart [id number] <Conclusion> Sinus tachycardia Possible Left atrial enlargement Nonspecific T wave abnormality Abnormal ECG
== END 2018-10-16 00:10 | disposition home or self-care (01) ==
LOC: C.ER 15:00
DX: R07.9 Chest pain, unspecified (principal)

== ENCOUNTER 2018-10-21 13:05 | Emergency (ER) | payer MEDICAID, MEDICARE, OTHER ==
[2018-10-21 13:06] VITALS: BMI 19.8
--- NOTE | 2018-10-21 13:42 | C.PDOC ---
History Of Present Illness Patient is a 68 year old female with PMHx HTN, DMII, COPD, Hep C, arthritis, alcohol neuropathy, substance abuse who presents today for chest pain which started last night. Patient said the pain resolved spontaneously, but returned this morning. Patient rates the pain 8/10 and describes it as tightness in the center of her chest. Patient has a dry cough which she says exacerbates her chest pain. Patient says movement and touching the area also makes it worse. Patient admits to some shortness of breath which is relieved with her COPD medications. Patient denies any phelgm, fevers, chills, abdominal pain, nausea, vomiting, constipation, or diarrhea. Of note, patient was admitted to [facility] from 10/18/18 to 10/20/18 for similar complaints. Patient had negative cardiac enzymes and no changes on EKG. Patient had an echo which showed normal EF with mild to moderate tricuspid regurgitation. Time Seen by Provider: 10/21/18 13:37 Chief Complaint (Nursing): Chest Pain History Per: Patient History/Exam Limitations: no limitations Onset/Duration Of Symptoms: Days Current Symptoms Are (Timing): Still Present Severity: Moderate Pain Scale Rating Of: 8 Quality: Tightness Associated Symptoms: denies: Nausea Exacerbating Factors: Turning, Movement, Other (cough) Alleviating Factors: None Past Medical History - Medical History PMH: Arthritis (B/L HIP), COPD, Hepatitis, HTN Denies: Chronic Kidney Disease Surgical History: Tonsillectomy Family History: States: Unknown Family Hx - Social History Hx Tobacco Use: Yes (Light smoker <10 cigarettes daily) Hx Alcohol Use: Yes (2 mini shots daily) Hx Substance Use: Yes (former heroin; finished methadone tx) - Immunization History Hx Tetanus Toxoid Vaccination: Yes Hx Influenza Vaccination: Yes Hx Pneumococcal Vaccination: Yes Review Of Systems Constitutional: Negative for: Fever, Chills Cardiovascular: Positive for: Chest Pain. Negative for: Palpitations Respiratory: Positive for: Cough, Shortness of Breath, SOB with Excertion Gastrointestinal: Negative for: Nausea, Vomiting, Diarrhea, Constipation Genitourinary: Negative for: Dysuria Physical Exam - Physical Exam Appears: Non-toxic, No Acute Distress Skin: Normal Color, Warm Head: Atraumatic, Normacephalic Eye(s): bilateral: Normal Inspection Teeth: No Normal Dentition (poor dentition) Chest: Tenderness (tenderness to palpation on left side of sternum ) Cardiovascular: Rhythm Regular Respiratory: Normal Breath Sounds, No Accessory Muscle Use, No Rales, No Rhonchi, No Stridor, No Wheezing Gastrointestinal/Abdominal: Normal Exam, Bowel Sounds, No Tenderness ED Course And Treatment - Laboratory Results Result Diagrams: 10/21/18 14:29 10/21/18 14:29 Medical Decision Making Medical Decision Makin:45 on Re-eval patient says her chest pain has decreased to 7/10. Patient is resting comfortably. Troponin I negative and EKG NSR with nonspecific changes. Patient stable for discharge. Disposition Counseled Patient/Family Regarding: Studies Performed, Diagnosis, Need For Followup - Disposition Referrals: Milton Aranda MD [Staff Provider] - [facility] [Outside] Disposition: HOME/ ROUTINE Disposition Time: 15:05 Condition: STABLE Additional Instructions: FRANCO IRVIN, thank you for letting us take care of you today. Your provider was Danay Fonseca DO and you were treated for BODYACHES. The emergency medical care you received today was directed at your acute symptoms. It may take several days for your symptoms to resolve. Return to the Emergency Department if your symptoms worsen, do not improve, or if you have any other problems. Patient may take Motrin 400mg by mouth every 6-8 hours. Please contact your doctor or call one of the physicians/clinics you have been referred to that are listed on the Patient Visit Information form that is included in your discharge packet. Bring any paperwork you were given at discharge with you along with any medications you are taking to your follow up visit. Our treatment cannot replace ongoing medical care by a primary care provider outside of the emergency department. Thank you for allowing the [facility] team to be part of your care today. Instructions: Costochondritis (DC) Forms: [employer] (Belarusian) - Clinical Impression Clinical Impression: Costochondritis
[2018-10-21 13:59] VITALS: BP 117/77; PULSE 105; RESP 20; TEMP 98.9; O2SAT 96
[2018-10-21 14:34] LABS: BASO # 0.1 K/uL (0.0-0.2); EOS % 0.4 % (0.0-4.0); HEMOGLOBIN 12.2 g/dL (11.0-16.0); LYMPH # 3.2 K/uL (1.0-4.3); LYMPH % 31.5 % (20.0-40.0); MEAN CELL VOLUME 90.1 fL (81.0-99.0); MEAN CORPUSCULAR HEMOGLOBIN 29.7 pg (27.0-31.0); MEAN CORPUSCULAR HGB CONC 32.9 g/dL (33.0-37.0); MEAN PLATELET VOLUME 9.4 fL (7.2-11.7); MONO # 0.6 K/uL (0.0-0.8); MONO % 6.2 % (0.0-10.0); NEUT # 6.2 K/uL (1.8-7.0); NEUT % 60.9 % (50.0-75.0); NRBC % 0.1 % (0.0-2.0); RBC 4.1 Mil/uL (3.80-5.20); RED CELL DISTRIBUTION WIDTH 14.7 % (11.5-14.5); WHITE BLOOD COUNT 10.2 K/uL (4.8-10.8)
[2018-10-21 14:45] LABS: ALBUMIN 3.8 g/dL (3.5-5.0); ALT/SGPT 42 U/L (9-52); AST/SGOT 37 U/L (14-36); BLOOD UREA NITROGEN 20 mg/dL (7-17); CALCIUM 7.7 mg/dl (8.6-10.4); GFR NON-AFRICAN AMERICAN > 60
== END 2018-10-21 16:00 | disposition home or self-care (01) ==
LOC: C.ER 13:05
DX: M94.0 Chondrocostal junction syndrome [Tietze] (principal); I10 Essential (primary) hypertension; J44.9 Chronic obstructive pulmonary disease, unspecified; F17.210 Nicotine dependence, cigarettes, uncomplicated

== ENCOUNTER 2018-10-23 19:20 | Emergency (ER) | payer MEDICARE, OTHER ==
[2018-10-23 19:20] VITALS: BMI 19.8
[2018-10-23 19:42] VITALS: BP 120/80; RESP 18; TEMP 98.7; O2SAT 98
[2018-10-23 20:27] VITALS: PULSE 100
--- NOTE | 2018-10-23 20:51 | C.PDOC ---
History Of Present Illness 68 year old female with PMHx of DM presents to the ED c/o non productive cough, pleuritic chest pain. Patient also states her blood sugar is high and has been fluctuating since yesterday. Patient reports she is complaint with her metformin. Patient was seen at [facility] today at 14:50 and seen 14 times previously at this ED for same. Patient denies fever, chills, SOB, palpitations, nausea, vomit, diarrhea, abdominal pain, rash, back pain, recent travel, sick contacts. Time Seen by Provider: 10/23/18 19:53 Chief Complaint (Nursing): Cough, Cold, Congestion History Per: Patient History/Exam Limitations: no limitations Onset/Duration Of Symptoms: Days Current Symptoms Are (Timing): Still Present Reports Recently: Seen In ED ([facility] ED today) Recent travel outside of the [place]: No Additional History Per: Patient Past Medical History Reviewed: Historical Data, Nursing Documentation, Vital Signs Vital Signs: Last Vital Signs Temp 98.7 F 10/23/18 19:34 Pulse 100 H 10/23/18 20:26 Resp 18 10/23/18 19:34 BP 120/80 10/23/18 19:34 Pulse Ox 98 10/23/18 19:34 - Medical History PMH: Arthritis (B/L HIP), COPD, Hepatitis, HTN Denies: Chronic Kidney Disease Surgical History: Tonsillectomy Family History: States: Unknown Family Hx - Social History Hx Tobacco Use: Yes (Light smoker <10 cigarettes daily) Hx Alcohol Use: Yes (2 mini shots daily) Hx Substance Use: Yes (former heroin; finished methadone tx) - Immunization History Hx Tetanus Toxoid Vaccination: Yes Hx Influenza Vaccination: Yes Hx Pneumococcal Vaccination: Yes Review Of Systems Constitutional: Negative for: Fever, Chills Cardiovascular: Positive for: Chest Pain. Negative for: Palpitations Respiratory: Positive for: Cough. Negative for: Shortness of Breath, Sputum, Wheezing Gastrointestinal: Negative for: Nausea, Vomiting, Abdominal Pain Skin: Negative for: Rash Neurological: Negative for: Weakness, Numbness, Headache Physical Exam - Physical Exam Appears: Non-toxic, No Acute Distress Skin: Normal Color, Warm, Dry Head: Atraumatic, Normacephalic Eye(s): bilateral: Normal Inspection Neck: Normal ROM, Supple Chest: Symmetrical Cardiovascular: Rhythm Regular Respiratory: Normal Breath Sounds, No Rales, No Rhonchi, No Wheezing Gastrointestinal/Abdominal: Soft, No Tenderness, No Guarding, No Rebound Extremity: Normal ROM, No Tenderness, No Swelling Neurological/Psych: Oriented x3, Normal Speech, Normal Cognition Gait: Steady ED Course And Treatment ECG: Interpreted By Me, Viewed By Me ECG Rhythm: Sinus Rhythm ECG Interpretation: No Changes From Prior Interpretation Of ECG: T wave inversion in leads V4 to V5, II, III and aVF. unchanged from prior Rate From EC (BPM) O2 Sat by Pulse Oximetry: 98 (ON RA) Pulse Ox Interpretation: Normal - Radiology CXR: Interpreted by Me, Viewed By Me CXR Interpretation: Yes: No Acute Disease. No: Infiltrates Progress Note: Plan: - EKG. - CXR Disposition Counseled Patient/Family Regarding: Studies Performed, Diagnosis, Need For Followup - Disposition Referrals: Milton Aranda MD [Staff Provider] - Disposition: HOME/ ROUTINE Disposition Time: 20:50 Condition: STABLE Additional Instructions: FOLLOW UP WITH YOUR DOCTOR IN 1-2 DAYS RETURN TO ER IF SYMPTOMS WORSEN Forms: [employer] (American) Print Language: ROMANSH - Clinical Impression Clinical Impression: Pleuritic chest pain, Nonproductive cough - Scribe Statement The provider has reviewed the documentation as recorded by the Scribe Chan Gillette All medical record entries made by the Scribe were at my direction and personally dictated by me. I have reviewed the chart and agree that the record accurately reflects my personal performance of the history, physical exam, medical decision making, and the department course for this patient. I have also personally directed, reviewed, and agree with the discharge instructions and disposition.
--- NOTE | 2018-10-24 09:45 | CARD ---
APPROVED REPORT Date of service: 10/23/2018 EKG Measurement Heart [id number] <Conclusion> Normal sinus rhythm Possible Left atrial enlargement Nonspecific T wave abnormality Prolonged QT Abnormal ECG
--- NOTE | 2018-10-24 10:41 | RAD ---
Date of service: 10/23/2018 HISTORY: Cough, pleuritic pain COMPARISON: 10/15/2018. TECHNIQUE: Chest PA and lateral FINDINGS: LINES AND TUBES: None. LUNG AND PLEURA: The lungs are well inflated and clear. No pleural effusion or pneumothorax. HEART AND MEDIASTINUM: The heart is not enlarged. No aortic atherosclerotic calcification present. The hilar and mediastinal contours are within normal limits. SKELETAL STRUCTURES: The bony structures are within normal limits for the patient's age. VISUALIZED UPPER ABDOMEN: Normal. OTHER FINDINGS: None. IMPRESSION: No active pulmonary disease.
== END 2018-10-24 00:35 | disposition home or self-care (01) ==
LOC: C.ER 19:20
DX: R07.89 Other chest pain (principal); R05 Cough; I10 Essential (primary) hypertension; J44.9 Chronic obstructive pulmonary disease, unspecified; R73.9 Hyperglycemia, unspecified; F17.210 Nicotine dependence, cigarettes, uncomplicated

== ENCOUNTER 2018-10-28 15:06 | Emergency (ER) | payer MEDICARE, OTHER ==
[2018-10-28 15:14] VITALS: BMI 20.5
[2018-10-28] MEDS ORDERED: Sodium Chloride 0.9% 1,000 ML IV ONE (15:37)
--- NOTE | 2018-10-28 15:37 | C.PDOC ---
History Of Present Illness 68 y/o female with a PMHx of COPD, arthritis, DM, HTN, presents to the ED complaining of left back/flank pain for the past 3 days. Associated with urinary frequency. Patient denies any fever, chills, nausea, vomiting, or diarrhea. Time Seen by Provider: 10/28/18 15:17 Chief Complaint (Nursing): Back Pain History Per: Patient History/Exam Limitations: no limitations Onset/Duration Of Symptoms: Days Current Symptoms Are (Timing): Still Present Quality Of Discomfort: "Pain" Past Medical History Reviewed: Historical Data, Nursing Documentation, Vital Signs Vital Signs: Last Vital Signs Temp 98.3 F 10/28/18 15:12 Pulse 114 H 10/28/18 15:12 Resp 17 10/28/18 15:12 BP 136/85 10/28/18 15:12 Pulse Ox 98 10/28/18 15:12 - Medical History PMH: Arthritis (B/L HIP), COPD, Hepatitis, HTN Denies: Chronic Kidney Disease Surgical History: Tonsillectomy Family History: States: Unknown Family Hx - Social History Hx Tobacco Use: Yes (Light smoker <10 cigarettes daily) Hx Alcohol Use: Yes (2 mini shots daily) Hx Substance Use: Yes (former heroin; finished methadone tx) - Immunization History Hx Tetanus Toxoid Vaccination: Yes Hx Influenza Vaccination: Yes Hx Pneumococcal Vaccination: Yes Review Of Systems Except As Marked, All Systems Reviewed And Found Negative. Constitutional: Negative for: Fever, Chills Gastrointestinal: Negative for: Nausea, Vomiting Genitourinary: Positive for: Frequency Musculoskeletal: Positive for: Back Pain Physical Exam - Physical Exam Appears: Non-toxic, No Acute Distress Skin: Warm, Dry Head: Atraumatic, Normacephalic Eye(s): bilateral: Normal Inspection, PERRL, EOMI Oral Mucosa: Moist Neck: Normal ROM Chest: Symmetrical Cardiovascular: Rhythm Regular, No Murmur Respiratory: Normal Breath Sounds, No Rales, No Rhonchi, No Wheezing Gastrointestinal/Abdominal: Soft, No Tenderness, No Distention Back: No CVA Tenderness, No Vertebral Tenderness Extremity: Bilateral: Atraumatic, Normal Color And Temperature, Other (No pitting edema) Neurological/Psych: Oriented x3, Normal Speech ED Course And Treatment - Laboratory Results Result Diagrams: 10/28/18 16:02 10/28/18 16:02 O2 Sat by Pulse Oximetry: 98 (RA) Pulse Ox Interpretation: Normal Medical Decision Making Medical Decision Making: Impression: 68-year-old female with urinary frequency and back pain, r/o UTI, r/o kidney stone Plan: --Blood work --Urinalysis --Urine culture --Renal US --1L IV fluids --30mg Toradol for pain control --Reassess Disposition - Disposition Referrals: Ceasar Navarrete Jr., MD [Staff Provider] - Disposition: HOME/ ROUTINE Disposition Time: 19:00 Condition: GOOD Additional Instructions: Please call Dr Navarrete to make an appointment as soon as possible. Instructions: Kidney Stones (DC), Laser Lithotripsy for Kidney Stones Forms: [employer] (Tongan) - Clinical Impression Clinical Impression: Kidney stone - Scribe Statement The provider has reviewed the documentation as recorded by the Jenaroibgrant Duff Provider Attestation: All medical record entries made by the Jenaroibe were at my direction and personally dictated by me. I have reviewed the chart and agree that the record accurately reflects my personal performance of the history, physical exam, medical decision making, and the department course for this patient. I have also personally directed, reviewed, and agree with the discharge instructions and disposition.
[2018-10-28] MEDS ORDERED: Sodium Chloride 0.9% 1,000 ML ONE (15:51)
[2018-10-28 16:05] LABS: BASO # 0.1 K/uL (0.0-0.2); BASO % 1.7 % (0.0-2.0); EOS # 0.1 K/uL (0.0-0.7); HEMOGLOBIN 12.6 g/dL (11.0-16.0); LYMPH # 2.6 K/uL (1.0-4.3); LYMPH % 33.7 % (20.0-40.0); MEAN CELL VOLUME 90.3 fL (81.0-99.0); MEAN CORPUSCULAR HEMOGLOBIN 29.1 pg (27.0-31.0); MEAN CORPUSCULAR HGB CONC 32.2 g/dL (33.0-37.0); MEAN PLATELET VOLUME 9.4 fL (7.2-11.7); MONO # 0.4 K/uL (0.0-0.8); MONO % 5.7 % (0.0-10.0); NEUT # 4.5 K/uL (1.8-7.0); NEUT % 57.9 % (50.0-75.0); RBC 4.31 Mil/uL (3.80-5.20); RED CELL DISTRIBUTION WIDTH 14.6 % (11.5-14.5); WHITE BLOOD COUNT 7.7 K/uL (4.8-10.8)
[2018-10-28 16:14] LABS: SQUAMOUS EPITHIAL 6 /hpf (0-5); URINE BACTERIA RARE (<OCC); URINE BILIRUBIN NEGATIVE (NEGATIVE); URINE BLOOD NEGATIVE (NEGATIVE); URINE CLARITY Clear (Clear); URINE COLOR Yellow (YELLOW); URINE GLUCOSE (UA) 3+ mg/dL (Normal); URINE LEUKOCYTE ESTERASE NEG Leu/uL (Negative); URINE PROTEIN NEGATIVE (NEGATIVE)
[2018-10-28 17:28] LABS: ALT/SGPT 44 U/L (9-52); AST/SGOT 52 U/L (14-36); BLOOD UREA NITROGEN 20 mg/dL (7-17); CALCIUM 8.8 mg/dl (8.6-10.4); GFR NON-AFRICAN AMERICAN > 60
--- NOTE | 2018-10-28 17:34 | US ---
Date of service: 10/28/2018 PROCEDURE: Ultrasound of the Kidneys HISTORY: abd pain COMPARISON: None available. TECHNIQUE: Sonogram of the kidneys. FINDINGS: RIGHT KIDNEY: Measures: 4.7 x 10.4 cm. Normal in size, contour and echogenicity. Solitary midpole calculus 2 mm. No solid mass lesion or hydronephrosis visualized. LEFT KIDNEY: Measures: 5.7 x 11.4 cm. Normal in size, contour and echogenicity. Midpole calculus 3 mm. No solid mass lesion or hydronephrosis visualized. OTHER FINDINGS: None. IMPRESSION: Bilateral nonobstructing renal calculi. Otherwise unremarkable study.
[2018-10-28 18:50] VITALS: BP 130/86; PULSE 91; RESP 14; TEMP 98.1
--- NOTE | 2018-11-01 18:57 | CARD ---
APPROVED REPORT Date of service: 10/28/2018 EKG Measurement Heart [id number] [place] [id number] [id number] <Conclusion> Sinus tachycardia Possible Left atrial enlargement Nonspecific T wave abnormality Abnormal ECG
[2018-11-02 14:38] VITALS: O2SAT 98
== END 2018-10-28 20:31 | disposition home or self-care (01) ==
LOC: C.ER 15:06
DX: N20.0 Calculus of kidney (principal)
CPT/HCPCS: 76770; 80053; 81001; 82948; 85025; 87086; 93005; 96374; 99284; J1885; J7030

== ENCOUNTER 2018-10-30 21:58 | Observation (INO) | payer MEDICARE, OTHER ==
[2018-10-30 21:58] VITALS: BMI 20.5
--- NOTE | 2018-10-30 22:15 | C.PDOC ---
History Of Present Illness The patient presents to the ED for evaluation of lower extremity swelling which has been worsening since it began around three days ago. Patient states her water pill is not working. She is speaking in complete sentences and denies f ever, chills, nausea and vomiting. Time Seen by Provider: 10/30/18 22:15 Chief Complaint (Nursing): Lower Extremity Problem/Injury History Per: Patient History/Exam Limitations: no limitations Onset/Duration Of Symptoms: Days (3) Current Symptoms Are (Timing): Worse Severity: Mild Pain Scale Rating Of: 2 Recent travel outside of the [place]: No Additional History Per: Patient - Ankle/Foot Description Of Injury: denies: Fell, Struck With Object, Struck Against Object, Twisted Past Medical History Reviewed: Historical Data, Nursing Documentation, Vital Signs Vital Signs: Last Vital Signs Temp 98 F 10/30/18 22:07 Pulse 78 10/30/18 22:07 Resp 18 10/30/18 22:07 BP 125/87 10/30/18 22:07 Pulse Ox 98 10/30/18 22:07 - Medical History PMH: Arthritis (B/L HIP), COPD, Hepatitis, HTN Denies: Chronic Kidney Disease Surgical History: Tonsillectomy Family History: States: Unknown Family Hx - Social History Hx Tobacco Use: Yes (Light smoker <10 cigarettes daily) Hx Alcohol Use: Yes (2 mini shots daily) Hx Substance Use: Yes (former heroin; finished methadone tx) - Immunization History Hx Tetanus Toxoid Vaccination: Yes Hx Influenza Vaccination: Yes Hx Pneumococcal Vaccination: Yes Review Of Systems Constitutional: Negative for: Fever, Chills Cardiovascular: Negative for: Chest Pain, Palpitations Respiratory: Negative for: Cough, Shortness of Breath, SOB with Excertion Gastrointestinal: Negative for: Nausea, Vomiting, Abdominal Pain Skin: Positive for: Other (lower extremity swelling ) Neurological: Negative for: Weakness, Numbness Physical Exam - Physical Exam Appears: Non-toxic, No Acute Distress Skin: Warm, Dry Head: Normacephalic Eye(s): bilateral: Normal Inspection Oral Mucosa: Moist Neck: Supple Chest: Symmetrical, No Deformity, No Tenderness Cardiovascular: Rhythm Regular Respiratory: Rales (at bases, bilaterally), No Rhonchi, No Wheezing, Other (speaking in complete sentences ) Gastrointestinal/Abdominal: Bowel Sounds (good ), Soft, No Tenderness, No Guarding, No Rebound Back: Normal Inspection Extremity: Normal ROM, Capillary Refill (less than 2 seconds ), Other (pitting edema bilaterally ) Pulses: Left Dorsalis Pedis: Normal, Right Dorsalis Pedis: Normal Neurological/Psych: Oriented x3 Gait: With Assistance ED Course And Treatment - Laboratory Results Result Diagrams: 10/30/18 22:54 12 22:54 ECG: Interpreted By Me, Viewed By Me ECG Rhythm: Sinus Rhythm (101), Nonspecific Changes O2 Sat by Pulse Oximetry: 98 (on RA) Pulse Ox Interpretation: Normal - Radiology CXR: Interpreted by Me, Viewed By Me CXR Interpretation: No: Infiltrates, Fracture, Pnemothorax Progress Note: Bloodwork, urinalysis, CXR, EKG ordered and reviewed. pt now also complains of chest pain. Dull aching , occasionally pressure. asa given. Disposition Discussed With : Milton Aranda Comment: accepted the pt on is service and took over the care at 12:51 AM Doctor Will See Patient In The: Hospital Counseled Patient/Family Regarding: Studies Performed, Diagnosis - Disposition Disposition: HOSPITALIZED Disposition Time: 22:15 Condition: FAIR Forms: [employer] (Peruvian) - POA Present On Arrival: Poor Glycemic Control - Clinical Impression Clinical Impression: CHF (congestive heart failure), Chest pain - Scribe Statement The provider has reviewed the documentation as recorded by the Scribe (Natividad Haines) Provider Attestation: All medical record entries made by the Scribe were at my direction and personally dictated by me. I have reviewed the chart and agree that the record accurately reflects my personal performance of the history, physical exam, medical decision making, and the department course for this patient. I have also personally directed, reviewed, and agree with the discharge instructions and disposition. Decision To Admit - Pt Status Changed To: Hospital Disposition Of: Observation - . Bed Request Type: Telemetry Patient Diagnosis: CHF (congestive heart failure), Chest pain
[2018-10-30 22:57] LABS: BASO # 0.1 K/uL (0.0-0.2); BASO % 1.2 % (0.0-2.0); EOS # 0.1 K/uL (0.0-0.7); EOS % 0.6 % (0.0-4.0); HEMOGLOBIN 12.6 g/dL (11.0-16.0); LYMPH # 2.8 K/uL (1.0-4.3); LYMPH % 27.5 % (20.0-40.0); MEAN CELL VOLUME 88.9 fL (81.0-99.0); MEAN CORPUSCULAR HEMOGLOBIN 29.2 pg (27.0-31.0); MEAN CORPUSCULAR HGB CONC 32.8 g/dL (33.0-37.0); MEAN PLATELET VOLUME 9.7 fL (7.2-11.7); MONO # 0.7 K/uL (0.0-0.8); MONO % 6.8 % (0.0-10.0); NEUT # 6.6 K/uL (1.8-7.0); NEUT % 63.9 % (50.0-75.0); NRBC % 0.1 % (0.0-2.0); RBC 4.3 Mil/uL (3.80-5.20); RED CELL DISTRIBUTION WIDTH 14.7 % (11.5-14.5); WHITE BLOOD COUNT 10.3 K/uL (4.8-10.8)
[2018-10-30 23:04] LABS: PROTHROMBIN TIME 11.2 SECONDS (9.7-12.2)
[2018-10-30 23:06] LABS: SQUAMOUS EPITHIAL 4 /hpf (0-5); URINE BACTERIA OCC (<OCC); URINE BILIRUBIN NEGATIVE (NEGATIVE); URINE BLOOD 1+ (NEGATIVE); URINE CLARITY Clear (Clear); URINE COLOR Yellow (YELLOW); URINE GLUCOSE (UA) NORMAL (Normal); URINE LEUKOCYTE ESTERASE NEG Leu/uL (Negative); URINE PROTEIN NEGATIVE (NEGATIVE)
[2018-10-30 23:08] LABS: ALB/GLOB RATIO 1.1 (1.0-2.1); ALT/SGPT 50 U/L (9-52); AST/SGOT 58 U/L (14-36); BLOOD UREA NITROGEN 19 mg/dL (7-17); CALCIUM 9.6 mg/dl (8.6-10.4); GFR NON-AFRICAN AMERICAN > 60
[2018-10-30 23:21] LABS: B-TYPE NATRIURETIC PEPTIDE 48.3 pg/mL (0-900)
[2018-10-31 02:37] VITALS: RESP 20
[2018-10-31 08:11] LABS: CK-MB 1.12 ng/mL (0.0-3.38)
--- NOTE | 2018-10-31 08:22 | RAD ---
Date of service: 10/30/2018 HISTORY: SOB COMPARISON: None available. FINDINGS: LUNGS: No acute pulmonary disease. Stable right apical pleural thickening reiterated. PLEURA: No significant pleural effusion identified, no pneumothorax apparent. CARDIOVASCULAR: No aortic atherosclerotic calcification present. Normal cardiac size. No pulmonary vascular congestion. OSSEOUS STRUCTURES: No significant abnormalities. VISUALIZED UPPER ABDOMEN: Normal. OTHER FINDINGS: None. IMPRESSION: No interval acute cardiopulmonary disease appreciable. Right apical pleural thickening again evident.
--- NOTE | 2018-10-31 08:49 | CP.PCM.PN ---
Subjective - Date & Time of Evaluation Date of Evaluation: 10/31/18 Time of Evaluation: 08:48 - Subjective Subjective: PGY3 Resident - Medicine Progress Note The patient presents to the ED for evaluation of lower extremity swelling which has been worsening since it began around three days ago. Patient states her water pill is not working. She is speaking in complete sentences and denies fever, chills, nausea and vomiting. Patient seen and examined at bedside. No acute distress. No overnight events. Patient reports her b/l LE edema has started to improve since being admitted. She currently denies any f/c, chest pain, palpitations, dyspnea, cough, abdominal pain, nausea/vomiting, diarrhea/constipation, dysuria. She states she was recently treated for a UTI which has resolved. 12-point review of systems is otherwise negative without any additional acute complaints. Objective - Vital Signs/Intake and Output Vital Signs (last 24 hours): Temp Pulse Resp BP Pulse Ox 97.4 F L 85 20 124/85 99 10/31/18 07:00 10/31/18 08:00 10/31/18 07:00 10/31/18 07:00 10/31/18 07:00 - Medications Medications: Current Medications Enoxaparin Sodium (Lovenox) 40 mg SC DAILY [facility] - Labs Labs: 10/30/18 22:54 10/30/18 22:54 PT 11.2 SECONDS (9.7-12.2) 10/30/18 22:54 INR 1.0 10/30/18 22:54 APTT 30 SECONDS (21-34) 10/30/18 22:54 - Additional Findings Additional findings: - Constitutional Appears: Non-toxic, No Acute Distress - Head Exam Head Exam: ATRAUMATIC, NORMAL INSPECTION - Eye Exam Eye Exam: EOMI, Normal appearance - Respiratory Exam Respiratory Exam: NORMAL BREATHING PATTERN. absent: Rales, Wheezes - Cardiovascular Exam Cardiovascular Exam: Regular Rate, +S1, +S2 - GI/Abdominal Exam GI & Abdominal Exam: Soft, Normal Bowel Sounds. absent: Tenderness - Extremities Exam Extremities Exam: Full ROM, Normal Inspection. absent: Pedal Edema, Tenderness - Back Exam Back Exam: NORMAL INSPECTION. absent: CVA tenderness (L), CVA tenderness (R) - Neurological Exam Neurological Exam: Alert, Awake, Oriented x3 - Psychiatric Exam Psychiatric exam: Normal Affect, Normal Mood - Skin Skin Exam: Dry, Intact, Normal Color, Warm Assessment and Plan - Assessment and Plan (Free Text) Assessment: Lower Extremity Edema 10/31: lower extremity swelling currently resolved Lasix) 40 mg PO DAILY [facility] Chest Pain -resolved -troponin negative x2 -CKMB negative x1 -CXR negative COPD Ventolin Hfa 90 Mcg/Actuation (8 G)) 1 puff IH RQID PRN Diabetes Glucophage) 500 mg PO BIDCC [facility] Neurontin) 300 mg PO TID [facility] HTN Norvasc) 10 mg PO DAILY [facility] -cardiac echo 10/19/18 - WNL with LVEF 69% Electrolyte Imbalance 10/31: Hypomagnesemia, Mg 1.4 -> Mag Sulfate x2bags, f/u AM levels Prophylaxis Lovenox) 40 mg SC DAILY [facility] Nicoderm Cq) 1 patch TD DAILY [facility] Case discussed with attending. All medical management as per Dr. Adonis Aranda.
[2018-10-31] MEDS: Enoxaparin 40 mg Syringe SC SCH (10:34)
[2018-10-31 11:34] LABS: BASO % 0.6 % (0.0-2.0); EOS # 0.1 K/uL (0.0-0.7); HEMOGLOBIN 11.1 g/dL (11.0-16.0); LYMPH # 2.2 K/uL (1.0-4.3); MEAN CORPUSCULAR HEMOGLOBIN 29.8 pg (27.0-31.0); MEAN CORPUSCULAR HGB CONC 32.5 g/dL (33.0-37.0); MEAN PLATELET VOLUME 9.9 fL (7.2-11.7); MONO # 0.5 K/uL (0.0-0.8); MONO % 7.8 % (0.0-10.0); NEUT # 3.7 K/uL (1.8-7.0); NEUT % 56.6 % (50.0-75.0); RBC 3.72 Mil/uL (3.80-5.20); RED CELL DISTRIBUTION WIDTH 14.7 % (11.5-14.5); WHITE BLOOD COUNT 6.6 K/uL (4.8-10.8)
[2018-10-31 11:37] LABS: MEAN CELL VOLUME 91.6 fL (81.0-99.0)
[2018-10-31 11:43] LABS: ALB/GLOB RATIO 1.1 (1.0-2.1); ALBUMIN 3.3 g/dL (3.5-5.0); ALT/SGPT 40 U/L (9-52); AST/SGOT 43 U/L (14-36); BLOOD UREA NITROGEN 19 mg/dL (7-17); CALCIUM 8.7 mg/dl (8.6-10.4); GFR NON-AFRICAN AMERICAN > 60
[2018-10-31] MEDS: Magnesium Sulfate 1 gm in D5W 1 GM/100 ML BAG IVPB SCH ×2 (14:12→14:54)
[2018-10-31 17:31] LABS: CK-MB 1.14 ng/mL (0.0-3.38)
--- NOTE | 2018-11-01 07:02 | HP ---
HISTORY OF PRESENT ILLNESS: The patient is admitted to the hospital with a chief complaint of shortness of breath chest pain. Came to the ER, advised admission. PHYSICAL EXAMINATION: GENERAL: The patient is awake, alert, and oriented. VITAL SIGNS: Temperature is 98, pulse 90. HEENT: Within normal limits. NECK: Supple. CHEST: Symmetrical. HEART: Regular. ABDOMEN: Soft. EXTREMITIES: No edema. ASSESSMENT AND PLAN: The patient suffers from chest pain. The patient is to bedrest. Supportive care. Milton Aranda MD
[2018-11-01] MEDS: Albuterol HFA 90 mcg/actuation (8 g) IH PRN ×2 (07:35→15:45)
[2018-11-01 07:55] LABS: BASO % 0.6 % (0.0-2.0); EOS # 0.1 K/uL (0.0-0.7); EOS % 0.9 % (0.0-4.0); HEMOGLOBIN 11.7 g/dL (11.0-16.0); LYMPH # 2.2 K/uL (1.0-4.3); LYMPH % 32.1 % (20.0-40.0); MEAN CELL VOLUME 91.4 fL (81.0-99.0); MEAN CORPUSCULAR HEMOGLOBIN 30.3 pg (27.0-31.0); MEAN CORPUSCULAR HGB CONC 33.2 g/dL (33.0-37.0); MEAN PLATELET VOLUME 9.9 fL (7.2-11.7); MONO # 0.5 K/uL (0.0-0.8); MONO % 6.9 % (0.0-10.0); NEUT % 59.5 % (50.0-75.0); NRBC % 0.1 % (0.0-2.0); RBC 3.84 Mil/uL (3.80-5.20); RED CELL DISTRIBUTION WIDTH 14.7 % (11.5-14.5); WHITE BLOOD COUNT 6.8 K/uL (4.8-10.8)
[2018-11-01 08:26] LABS: ALBUMIN 3.5 g/dL (3.5-5.0); ALT/SGPT 38 U/L (9-52); AST/SGOT 46 U/L (14-36); BLOOD UREA NITROGEN 20 mg/dL (7-17); GFR NON-AFRICAN AMERICAN > 60
--- NOTE | 2018-11-01 08:55 | CP.PCM.PN ---
Subjective - Date & Time of Evaluation Date of Evaluation: 11/01/18 Time of Evaluation: 08:54 - Subjective Subjective: PGY3 Resident - Medicine Progress Note Patient seen and examined at bedside. No acute distress. No overnight events. Patient reports her b/l LE edema has started to improve since being admitted. She states that she was started on Norvasc for HTN while in her retirement 6 months ago, and thats roughly the time when her LE edema began. She is tolerating her diet and offers no acute complaints. She currently denies any f/c, chest pain, palpitations, dyspnea, cough, abdominal pain, nausea/vomiting, diarrhea/constipation, dysuria. She states she was recently treated for a UTI which has resolved. 12-point review of systems is otherwise negative. Objective - Vital Signs/Intake and Output Vital Signs (last 24 hours): Temp Pulse Resp BP Pulse Ox 97.3 F L 83 20 107/79 100 11/01/18 08:03 11/01/18 08:03 11/01/18 08:03 11/01/18 08:03 11/01/18 08:03 - Medications Medications: Current Medications Albuterol (Ventolin Hfa 90 Mcg/Actuation (8 G)) 1 puff IH RQID PRN PRN Reason: Shortness of Breath Amlodipine Besylate (Norvasc) 10 mg PO DAILY [facility] Last Admin: 10/31/18 10:33 Dose: 10 mg Enoxaparin Sodium (Lovenox) 40 mg SC DAILY [facility] Last Admin: 10/31/18 10:34 Dose: 40 mg Furosemide (Lasix) 40 mg PO DAILY [facility] Last Admin: 10/31/18 10:33 Dose: 40 mg Gabapentin (Neurontin) 300 mg PO TID [facility] Last Admin: 10/31/18 17:46 Dose: 300 mg Metformin HCl (Glucophage) 500 mg PO BIDCC [facility] Last Admin: 10/31/18 17:46 Dose: 500 mg Nicotine (Nicoderm Cq) 1 patch TD DAILY [facility] Last Admin: 10/31/18 11:18 Dose: 1 patch - Labs Labs: 11/01/18 07:42 11/01/18 07:42 PT 11.2 SECONDS (9.7-12.2) 10/30/18 22:54 INR 1.0 10/30/18 22:54 APTT 30 SECONDS (21-34) 10/30/18 22:54 - Additional Findings Additional findings: - Constitutional Appears: Non-toxic, No Acute Distress - Head Exam Head Exam: ATRAUMATIC, NORMAL INSPECTION - Eye Exam Eye Exam: EOMI, Normal appearance - Respiratory Exam Respiratory Exam: NORMAL BREATHING PATTERN. absent: Rales, Wheezes - Cardiovascular Exam Cardiovascular Exam: Regular Rate, +S1, +S2 - GI/Abdominal Exam GI & Abdominal Exam: Soft, Normal Bowel Sounds. absent: Tenderness - Extremities Exam Extremities Exam: Full ROM, Normal Inspection. +Pedal Edema (mild pitting of b/l feet to ankles). absent:Tenderness - Back Exam Back Exam: NORMAL INSPECTION. absent: CVA tenderness (L), CVA tenderness (R) - Neurological Exam Neurological Exam: Alert, Awake, Oriented x3 - Psychiatric Exam Psychiatric exam: Normal Affect, Normal Mood - Skin Skin Exam: Dry, Intact, Normal Color, Warm Assessment and Plan - Assessment and Plan (Free Text) Assessment: Lower Extremity Edema 11/01: LE edema likely 2/2 Norvasc. Stop Norvasc; Stop Lasix (BP 107/79 this am) Start HCTZ 12.5mg PO qD for her HTN. 10/31: lower extremity swelling currently resolved Lasix) 40 mg PO DAILY [facility] COPD Ventolin Hfa 90 Mcg/Actuation (8 G)) 1 puff IH RQID PRN Diabetes Glucophage) 500 mg PO BIDCC [facility] Neurontin) 300 mg PO TID [facility] HTN 11/01: Start HCTZ 12.5mg PO qD Stop Norvasc) 10 mg PO DAILY [facility] -> likely cause of LE edema. -cardiac echo 10/19/18 - WNL with LVEF 69% Chest Pain (resolved) -resolved -troponin negative x2 -CKMB negative x1 -CXR negative Electrolyte Imbalance 10/31: Hypomagnesemia, Mg 1.4 -> Mag Sulfate x2bags (RESOLVED 11/01) Prophylaxis Lovenox) 40 mg SC DAILY [facility] Nicoderm Cq) 1 patch TD DAILY [facility] Disposition: Discharge afternoon of 11/02/18 if BP remains stable on new BP med HCTZ 12.5mg PO qD Case discussed with attending. All medical management as per Dr. Adonis Aranda.
[2018-11-01] MEDS: Enoxaparin 40 mg Syringe SC SCH (09:09)
--- NOTE | 2018-11-01 14:47 | CARD ---
APPROVED REPORT Date of service: 10/30/2018 EKG Measurement Heart [id number] <Conclusion> Sinus tachycardia Possible Left atrial enlargement Nonspecific T wave abnormality Abnormal ECG
[2018-11-02 06:33] LABS: BASO % 0.5 % (0.0-2.0); EOS % 0.8 % (0.0-4.0); HEMOGLOBIN 11.8 g/dL (11.0-16.0); LYMPH # 2.1 K/uL (1.0-4.3); LYMPH % 36.9 % (20.0-40.0); MEAN CELL VOLUME 90.1 fL (81.0-99.0); MEAN CORPUSCULAR HEMOGLOBIN 29.4 pg (27.0-31.0); MEAN CORPUSCULAR HGB CONC 32.6 g/dL (33.0-37.0); MEAN PLATELET VOLUME 9.7 fL (7.2-11.7); MONO # 0.4 K/uL (0.0-0.8); NEUT # 3.1 K/uL (1.8-7.0); NEUT % 54.8 % (50.0-75.0); NRBC % 0.1 % (0.0-2.0); RBC 4.02 Mil/uL (3.80-5.20); RED CELL DISTRIBUTION WIDTH 14.6 % (11.5-14.5); WHITE BLOOD COUNT 5.7 K/uL (4.8-10.8)
[2018-11-02 07:18] LABS: ALB/GLOB RATIO 1.1 (1.0-2.1); ALBUMIN 3.5 g/dL (3.5-5.0); ALT/SGPT 32 U/L (9-52); AST/SGOT 34 U/L (14-36); BLOOD UREA NITROGEN 18 mg/dL (7-17); CALCIUM 9.2 mg/dl (8.6-10.4); GFR NON-AFRICAN AMERICAN > 60
[2018-11-02] MEDS: Albuterol HFA 90 mcg/actuation (8 g) IH PRN (07:50)
[2018-11-02] MEDS: Enoxaparin 40 mg Syringe SC SCH (09:45)
[2018-11-02] MEDS ORDERED: Influenza Vaccine 22.5 mcg/0.25 ml Syr (6 - 35 months) IM ONE (10:00)
[2018-11-02] MEDS ORDERED: Influenza Vaccine 60 MCG/0.5 ML SYR (3 yr & up) IM ONE (10:00)
[2018-11-02] MEDS ORDERED: Pneumococcal 23-Valent Vaccine IM ONE (10:00)
--- NOTE | 2018-11-02 10:19 | CP.PCM.PN ---
Subjective - Date & Time of Evaluation Date of Evaluation: 11/02/18 Time of Evaluation: 07:30 - Subjective Subjective: Medicine progress note ( Dr. Aranda's service) Patient was seen and examined at bedside in no acute distress. Patient reports that she is doing well and has no acute complaints. Patient denies any symptoms of chest pain, palpitations, shortness of breath, fever, chills, nausea, vomiting, dizziness, abdominal pain, headache or visual changes. Objective - Vital Signs/Intake and Output Vital Signs (last 24 hours): Temp Pulse Resp BP Pulse Ox 98.2 F 85 20 112/74 96 11/02/18 08:00 11/02/18 09:47 11/02/18 08:00 11/02/18 09:47 11/02/18 08:00 - Medications Medications: Current Medications Acetaminophen (Tylenol 325mg Tab) 650 mg PO Q6 PRN PRN Reason: Pain, moderate (4-7) Last Admin: 11/02/18 07:39 Dose: 650 mg Albuterol (Ventolin Hfa 90 Mcg/Actuation (8 G)) 1 puff IH RQID PRN PRN Reason: Shortness of Breath Last Admin: 11/02/18 07:50 Dose: 1 puff Enoxaparin Sodium (Lovenox) 40 mg SC DAILY [facility] Last Admin: 11/02/18 09:45 Dose: 40 mg Gabapentin (Neurontin) 300 mg PO TID [facility] Last Admin: 11/02/18 09:45 Dose: 300 mg Hydrochlorothiazide (Microzide) 12.5 mg PO DAILY [facility] Last Admin: 11/02/18 09:45 Dose: 12.5 mg Metformin HCl (Glucophage) 500 mg PO BIDCC [facility] Last Admin: 11/02/18 08:25 Dose: 500 mg Nicotine (Nicoderm Cq) 1 patch TD DAILY [facility] Last Admin: 11/02/18 09:46 Dose: 1 patch - Labs Labs: 11/02/18 06:25 11/02/18 06:25 PT 11.2 SECONDS (9.7-12.2) 10/30/18 22:54 INR 1.0 10/30/18 22:54 APTT 30 SECONDS (21-34) 10/30/18 22:54 - Constitutional Appears: Well, No Acute Distress - Head Exam Head Exam: ATRAUMATIC, NORMAL INSPECTION - Eye Exam Eye Exam: EOMI, Normal appearance - ENT Exam ENT Exam: Mucous Membranes Moist - Respiratory Exam Respiratory Exam: Clear to Ausculation Bilateral, NORMAL BREATHING PATTERN. absent: Prolonged Expiratory Phase, Rhonchi, Wheezes, Respiratory Distress - Cardiovascular Exam Cardiovascular Exam: REGULAR RHYTHM, +S1, +S2 - GI/Abdominal Exam GI & Abdominal Exam: Soft, Normal Bowel Sounds. absent: Bruit, Distended, Firm, Guarding, Rigid, Tenderness - Extremities Exam Extremities Exam: Normal Inspection. absent: Calf Tenderness, Pedal Edema Additional comments: Resolved edema - Back Exam Back Exam: absent: CVA tenderness (L), CVA tenderness (R) - Neurological Exam Neurological Exam: Alert, Awake, Oriented x3 - Psychiatric Exam Psychiatric exam: Normal Affect, Normal Mood - Skin Skin Exam: Dry, Normal Color Assessment and Plan (1) Peripheral edema Assessment & Plan: Possibly secondary to Norvasc use - Norvasc discontinued and HCTZ 12.5mg PO once daily started 11/01/18 - Lasix 40mg PO daily discontinued BNP: 48.3 Chest X-ray: No interval acute cardiopulmonary disease appreciable. Right apical pleural thickening again evident. Troponin negative X3 Echo: LV normal size. Normal left ventricular wall thickness Status: Acute (2) Chest pain Assessment & Plan: Resolved EKG: No ST changes noted Troponin negative X3 BNP: 48.3 Chest X-ray: No interval acute cardiopulmonary disease appreciable. Right apical pleural thickening again evident. Status: Acute (3) COPD (chronic obstructive pulmonary disease) Assessment & Plan: Ventolin Hfa 90 Mcg/Actuation (8 G)) 1 puff IH RQID PRN Status: Chronic (4) Diabetes mellitus Assessment & Plan: HgbA1C: 6.6 (10/18/18) Lipid Panel (10/19/18): TGL (70), Chol (151), LDL (62) and HDL (89) Accuchecks Metformin 500mg PO BID Status: Acute (5) HTN (hypertension) Assessment & Plan: HCTZ 12.5mg PO daily Status: Acute (6) Constipation Assessment & Plan: Ducolax 10mg PO once Status: Acute (7) Neuropathic pain Assessment & Plan: Gabapentin 300mg PO TID Status: Acute (8) Hypomagnesemia Assessment & Plan: Resolved Repleted appropriately Status: Acute (9) Prophylactic measure Assessment & Plan: GI: Not indicated DVT: Lovenox 40mg SC daily Disposition: Please discharge patient home Please discontinue the following medication: - Norvasc 10mg PO daily Please continue your home medications: - HCTZ 12.5mg PO daily - Metformin 500mg PO BID - Gabapentin 300mg PO TID - Ventolin HFA 90 2 puff IH Q4H PRN - Spiriva INH 2puff daily Please follow up with Dr. Aranda in 1-7 days Please avoid salts or salty food Please return to the hospital if symptoms resume Please take care Status: Acute
[2018-11-02] MEDS ORDERED: Bisacodyl 5mg EC Tab PO ONE (11:00)
[2018-11-02] MEDS ORDERED: Magnesium Sulfate 1 gm in D5W 1 GM/100 ML BAG IVPB ONE (11:00)
[2018-11-02 16:17] VITALS: BP 106/74; PULSE 93; TEMP 98; O2SAT 100
== END 2018-11-02 16:55 | disposition home or self-care (01) ==
LOC: C.ER 21:58 → C.5S 10-31 00:50
PROVIDERS: ADMIT Internal Medicine Pulmonary Disease; ATTEND Internal Medicine Pulmonary Disease
DX: R07.89 Other chest pain (principal); I11.0 Hypertensive heart disease with heart failure; I50.9 Heart failure, unspecified; J44.9 Chronic obstructive pulmonary disease, unspecified; Z87.891 Personal history of nicotine dependence; E11.9 Type 2 diabetes mellitus without complications; K59.00 Constipation, unspecified; Z79.84 Long term (current) use of oral hypoglycemic drugs
CPT/HCPCS: 36415; 71045; 80053; 81001; 82948; 83735; 83880; 84100; 84484; 85025; 85610; 85730; 87040; 93005; 94640; 97116; 97162; 97166; 97530; 97535; 99285; G0378; G8978; G8979; G8987; G8988; J1650; J3475

== ENCOUNTER 2018-11-04 13:10 | Emergency (ER) | payer MEDICARE, OTHER ==
[2018-11-04 13:10] VITALS: BMI 20.5
--- NOTE | 2018-11-04 14:07 | C.PDOC ---
History Of Present Illness 68 year old female presents to the ED complaining of light headedness. She reports her sugar level goes up and down. Her highest sugar level was 400 and her lowest sugar level was 80. Patient takes Metformin 500mg and reports she has not been eating well. She reports of associated symptoms of headache, nausea, chest pain for a long time, shortness of breath and cough. Also states she has had a cardiac cath for several months ago and all her workups are negative. Otherwise, she denies any other complaints. Time Seen by Provider: 11/04/18 13:24 Chief Complaint (Nursing): Cough, Cold, Congestion History Per: Patient History/Exam Limitations: no limitations Onset/Duration Of Symptoms: Hrs Current Symptoms Are (Timing): Still Present Past Medical History Reviewed: Historical Data, Nursing Documentation, Vital Signs - Medical History PMH: Arthritis, COPD, Hepatitis, HTN Denies: Chronic Kidney Disease Surgical History: Tonsillectomy Family History: States: Unknown Family Hx - Social History Hx Tobacco Use: Yes (Light smoker <10 cigarettes daily) Hx Alcohol Use: Yes (2 mini shots daily) Hx Substance Use: Yes (former heroin; finished methadone tx) - Immunization History Hx Tetanus Toxoid Vaccination: Yes Hx Influenza Vaccination: Yes Hx Pneumococcal Vaccination: Yes Review Of Systems Cardiovascular: Positive for: Chest Pain Respiratory: Positive for: Cough, Shortness of Breath Gastrointestinal: Positive for: Nausea Neurological: Positive for: Headache, Other (light headedness) Physical Exam - Physical Exam Appears: Well, No Acute Distress Skin: Normal Color, Warm, Dry Eye(s): bilateral: Normal Inspection, PERRL, EOMI Chest: Symmetrical Cardiovascular: Rhythm Regular Respiratory: Normal Breath Sounds, Other (COPD lungs clear ) Gastrointestinal/Abdominal: Normal Exam, Soft, No Tenderness Back: Normal Inspection Extremity: Normal ROM, No Tenderness, No Pedal Edema, No Deformity Neurological/Psych: Oriented x3, Normal Speech Gait: Steady ED Course And Treatment - Laboratory Results Result Diagrams: 11/04/18 14:20 11/04/18 14:20 ECG: Interpreted By Me ECG Rhythm: Sinus Rhythm ECG Interpretation: Normal Interpretation Of ECG: Normal axis, no ST/T changes, normal intervals Rate From EC Pulse Ox Interpretation: Normal - Radiology CXR: Read By Radiologist CXR Interpretation: Yes: Other (Biapical pleural thickening/granulomatous c hanges) Medical Decision Making Medical Decision Making: Time: 1323 Impression: light headedness Initial Plan: --EKG --Basic Metabolic Panel --CBC w/ Differential --Chest Portable [RAD] --Glucose, POC Routine Labs, EKG, and CXR results reviewed and discussed with patient. Stable for discharge home at this time. Advised eating adequate meals to avoid hypo or hyperglycemia. Patient to follow up with her PMD. Disposition - Disposition Disposition: HOME/ ROUTINE Disposition Time: 14:41 Condition: STABLE Additional Instructions: FRANCO IRVIN, thank you for letting us take care of you today. Your provider was Loly Krause MD and you were treated for COUGH. The emergency medical care you received today was directed at your acute symptoms. If you were prescribed any medication, please fill it and take as directed. It may take several days for your symptoms to resolve. Return to the Emergency Department if your symptoms worsen, do not improve, or if you have any other problems. Please contact your doctor or call one of the physicians/clinics you have been referred to that are listed on the Patient Visit Information form that is included in your discharge packet. Bring any paperwork you were given at discharge with you along with any medications you are taking to your follow up visit. Our treatment cannot replace ongoing medical care by a primary care provider outside of the emergency department. Thank you for allowing the [facility] team to be part of your care today. If you had an X-Ray or CT scan: A Radiologist will review the ED reading if any change in treatment is needed we will contact you. If you had a blood, urine, or wound culture: It will take several days for the results, if any change in treatment is needed we will contact you. If you had an STI test: It will take 48 hours for the results. Please call after 1 week if you have not heard back. Instructions: Diabetes and Diet, Near Fainting (DC) Forms: [employer] (Namibian) - Clinical Impression Clinical Impression: Lightheadedness, Abnormal blood sugar - Scribe Statement The provider has reviewed the documentation as recorded by the Scribe (Julita Rojas) All medical record entries made by the Scribe were at my direction and personally dictated by me. I have reviewed the chart and agree that the record accurately reflects my personal performance of the history, physical exam, medical decision making, and the department course for this patient. I have also personally directed, reviewed, and agree with the discharge instructions and disposition.
--- NOTE | 2018-11-04 14:21 | RAD ---
HISTORY: dyspnea COMPARISON: Chest x-ray performed 10/30/18 TECHNIQUE: Chest, one view. FINDINGS: LUNGS: Biapical pleural thickening and granulomatous changes. No focal consolidation. Please note that chest x-ray has limited sensitivity for the detection of pulmonary masses. PLEURA: No significant pleural effusion identified. No definite pneumothorax . CARDIOVASCULAR: Heart size appears within normal limits. Faint atherosclerotic calcification present. OSSEOUS STRUCTURES: Degenerative changes of the spine. VISUALIZED UPPER ABDOMEN: Unremarkable. OTHER FINDINGS: None. IMPRESSION: Biapical pleural thickening/granulomatous changes.
[2018-11-04 14:25] LABS: BASO # 0.1 K/uL (0.0-0.2); EOS # 0.1 K/uL (0.0-0.7); EOS % 0.5 % (0.0-4.0); HEMOGLOBIN 13.6 g/dL (11.0-16.0); LYMPH # 2.6 K/uL (1.0-4.3); LYMPH % 24.1 % (20.0-40.0); MEAN CELL VOLUME 90.6 fL (81.0-99.0); MEAN CORPUSCULAR HEMOGLOBIN 29.5 pg (27.0-31.0); MEAN CORPUSCULAR HGB CONC 32.6 g/dL (33.0-37.0); MEAN PLATELET VOLUME 9.5 fL (7.2-11.7); MONO # 0.6 K/uL (0.0-0.8); NEUT # 7.3 K/uL (1.8-7.0); NEUT % 68.4 % (50.0-75.0); NRBC % 0.1 % (0.0-2.0); RBC 4.62 Mil/uL (3.80-5.20); RED CELL DISTRIBUTION WIDTH 14.7 % (11.5-14.5)
[2018-11-04 14:28] LABS: WHITE BLOOD COUNT 10.7 K/uL (4.8-10.8)
[2018-11-04 14:37] LABS: BLOOD UREA NITROGEN 24 mg/dL (7-17); CALCIUM 9.2 mg/dl (8.6-10.4); GFR NON-AFRICAN AMERICAN > 60
--- NOTE | 2018-11-05 17:35 | CARD ---
APPROVED REPORT Date of service: 11/04/2018 EKG Measurement Heart [id number] <Conclusion> Sinus tachycardia Right atrial enlargement T wave abnormality, consider inferior ischemia Abnormal ECG
== END 2018-11-04 15:00 | disposition home or self-care (01) ==
LOC: C.ER 13:10
DX: R42 Dizziness and giddiness (principal); R73.09 Other abnormal glucose

== ENCOUNTER 2018-11-04 19:42 | Emergency (ER) | payer OTHER ==
[2018-11-04 19:43] VITALS: BMI 20.5
[2018-11-04 20:10] VITALS: BP 116/90; PULSE 110; RESP 20; TEMP 98.4; O2SAT 99
--- NOTE | 2018-11-04 21:45 | C.PDOC ---
History Of Present Illness 68 year old female presents to the ED for evaluation of chronic leg and back pain. Patient was seen in this ED earlier today for a separate complaint. Patient has had many prior visits to this ED for various complaints. She denies any new injuries at this time. Time Seen by Provider: 11/04/18 20:25 Chief Complaint (Nursing): Abdominal Pain History Per: Patient History/Exam Limitations: no limitations Onset/Duration Of Symptoms: Days Current Symptoms Are (Timing): Still Present Additional History Per: Patient Past Medical History Reviewed: Historical Data, Nursing Documentation, Vital Signs Vital Signs: Last Vital Signs Temp 98.4 F 11/04/18 19:57 Pulse 110 H 11/04/18 19:57 Resp 20 11/04/18 19:57 BP 116/90 11/04/18 19:57 Pulse Ox 99 11/04/18 19:57 - Medical History PMH: Arthritis, COPD, Hepatitis, HTN Denies: Chronic Kidney Disease Surgical History: Tonsillectomy Family History: States: Unknown Family Hx - Social History Hx Tobacco Use: Yes (Light smoker <10 cigarettes daily) Hx Alcohol Use: Yes (2 mini shots daily) Hx Substance Use: Yes (former heroin; finished methadone tx) - Immunization History Hx Tetanus Toxoid Vaccination: Yes Hx Influenza Vaccination: Yes Hx Pneumococcal Vaccination: Yes Review Of Systems Musculoskeletal: Positive for: Back Pain, Leg Pain Physical Exam - Physical Exam Appears: Non-toxic, No Acute Distress Skin: Normal Color, Warm, Dry Head: Atraumatic, Normacephalic Back: No Vertebral Tenderness, No Paraspinal Tenderness Extremity: Normal ROM, No Tenderness, No Swelling Neurological/Psych: Oriented x3, Normal Speech, Normal Cognition ED Course And Treatment O2 Sat by Pulse Oximetry: 99 (on RA) Pulse Ox Interpretation: Normal Medical Decision Making Medical Decision Making: Progress: Motrin PO given. On reassessment, patient is resting comfortably, showing no signs of distress and is stable for discharge. Patient is advised to f/u with her PMD/clinic within 1-2 days for further evaluation. Advised to return to the ED if symptoms persist or worsen. Disposition - Disposition Referrals: Milton Aranda MD [Staff Provider] - Disposition: HOME/ ROUTINE Disposition Time: 20:35 Condition: GOOD Additional Instructions: FRANCO IRVIN, thank you for letting us take care of you today. The emergency medical care you received today was directed at your acute symptoms. If you were prescribed any medication, please fill it and take as directed. It may take several days for your symptoms to resolve. Return to the Emergency Department if your symptoms worsen, do not improve, or if you have any other problems. Please contact your doctor or call one of the physicians/clinics you have been referred to that are listed on the Patient Visit Information form that is included in your discharge packet. Bring any paperwork you were given at discharge with you along with any medications you are taking to your follow up visit. Our treatment cannot replace ongoing medical care by a primary care provider outside of the emergency department. Thank you for allowing the [facility] team to be part of your care today. Follow up with your doctor next week for re-evaluation. Prescriptions: Ibuprofen [Motrin] 600 mg PO Q6 PRN #20 tab PRN Reason: Pain, Moderate (4-7) Instructions: Low Back Pain (DC) Forms: [employer] (Libyan) - Clinical Impression Clinical Impression: Low back pain - Scribe Statement The provider has reviewed the documentation as recorded by the Scribe (Natividad Haines) Provider Attestation: All medical record entries made by the Scribe were at my direction and personally dictated by me. I have reviewed the chart and agree that the record accurately reflects my personal performance of the history, physical exam, medical decision making, and the department course for this patient. I have also personally directed, reviewed, and agree with the discharge instructions and disposition.
== END 2018-11-04 22:00 | disposition home or self-care (01) ==
LOC: C.ER 19:42
DX: M54.5 Low back pain (principal)

== ENCOUNTER 2018-11-08 20:58 | Emergency (ER) | payer MEDICAID, MEDICARE, OTHER ==
[2018-11-08 21:26] VITALS: BP 120/87; PULSE 96; RESP 20; TEMP 98.2; O2SAT 100
[2018-11-08 22:07] LABS: SQUAMOUS EPITHIAL 1 /hpf (0-5); URINE BACTERIA RARE (<OCC); URINE BILIRUBIN NEGATIVE (NEGATIVE); URINE BLOOD NEGATIVE (NEGATIVE); URINE CLARITY Clear (Clear); URINE COLOR Yellow (YELLOW); URINE GLUCOSE (UA) NORMAL (Normal); URINE LEUKOCYTE ESTERASE NEG Leu/uL (Negative); URINE PROTEIN NEGATIVE (NEGATIVE)
--- NOTE | 2018-11-08 22:39 | C.PDOC ---
History Of Present Illness 68 y/o F p/w L sided flank pain x 3 days. Patient in this ED multiple times for various complaints. CT abdomen/pelvis 2 days ago shows no acute disease, no obstructive nephrolithiasis. Patient states taking acetaminophen and ibuprofen at home without much relief. States she sees Dr. Aranda as primary and also has pain management doctor. Denies fever or vomiting. Time Seen by Provider: 11/08/18 21:40 Chief Complaint (Nursing): Female Genitourinary Past Medical History Vital Signs: Last Vital Signs Temp 98.2 F 11/08/18 21:19 Pulse 96 H 11/08/18 21:19 Resp 20 11/08/18 21:19 BP 120/87 11/08/18 21:19 Pulse Ox 100 11/08/18 21:19 - Medical History PMH: Arthritis, COPD, Hepatitis, HTN Denies: Chronic Kidney Disease Surgical History: Tonsillectomy Family History: States: Unknown Family Hx - Social History Hx Tobacco Use: Yes (Light smoker <10 cigarettes daily) Hx Alcohol Use: Yes (2 mini shots daily) Hx Substance Use: Yes (former heroin; finished methadone tx) - Immunization History Hx Tetanus Toxoid Vaccination: Yes Hx Influenza Vaccination: Yes Hx Pneumococcal Vaccination: Yes Review Of Systems Except As Marked, All Systems Reviewed And Found Negative. Constitutional: Negative for: Fever Gastrointestinal: Negative for: Vomiting Physical Exam - Physical Exam Additional Physical Exam Comments: Gen: NAD Head: AT Eyes: No icterus ENT: MMM CV: Regular rate Lungs: No accessory muscle use Skin: No rash Neuro: Alert ED Course And Treatment O2 Sat by Pulse Oximetry: 100 Medical Decision Making Medical Decision Making: I informed patient that no emergent findings were discovered today and that she should follow up with her primary care physician for further evaluation of her pain that she has come to the ED multiple times for. She insists that "something must be causing me to have this pain." I informed her that the Emergency Department is unable to diagnosis all conditions and is equipped to rule out emergent diagnoses. Patient is stable for discharge. Patient threatening to fall intentionally and also stating that she will definitely return to the ED. She also stated multiple times that she would not be treated this way if she were not black and instead if she were of foreign ethnicity. Disposition - Disposition Referrals: Milton Aranda MD [Staff Provider] - Disposition: HOME/ ROUTINE Disposition Time: 22:37 Condition: STABLE Instructions: Flank Pain Forms: [employer] (Welsh) - Clinical Impression Clinical Impression: Flank pain
== END 2018-11-09 00:35 | disposition home or self-care (01) ==
LOC: C.ER 20:58
DX: R10.9 Unspecified abdominal pain (principal); I10 Essential (primary) hypertension; F17.210 Nicotine dependence, cigarettes, uncomplicated

== ENCOUNTER 2018-11-11 15:35 | Emergency (ER) | payer MEDICAID, MEDICARE, OTHER ==
[2018-11-11 15:35] VITALS: BMI 19.8
[2018-11-11 15:46] VITALS: BP 134/85; PULSE 113; RESP 20; TEMP 98.2; O2SAT 99
--- NOTE | 2018-11-11 16:31 | C.PDOC ---
History Of Present Illness 68 y/o female presents to the ER complaining of left sided flank pain which has been present for many days now. Patient had CT scan few days ago which showed no acute disease, no obstructive nephrolithaisis. Patient reports that she is taking Tylenol and Motrin without relief at home. 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 Denies fever, chills, nausea, and vomiting. Time Seen by Provider: 11/11/18 15:48 Chief Complaint (Nursing): Female Genitourinary History Per: Patient History/Exam Limitations: no limitations Onset/Duration Of Symptoms: Days Current Symptoms Are (Timing): Still Present Severity: Moderate Past Medical History Reviewed: Historical Data, Nursing Documentation, Vital Signs Vital Signs: Last Vital Signs Temp 98.2 F 11/11/18 15:45 Pulse 113 H 11/11/18 15:45 Resp 20 11/11/18 15:45 BP 134/85 11/11/18 15:45 Pulse Ox 99 11/11/18 15:45 - Medical History PMH: Arthritis, COPD, Hepatitis, HTN Denies: Chronic Kidney Disease Surgical History: Tonsillectomy Family History: States: No Known Family Hx - Social History Hx Tobacco Use: Yes (Light smoker <10 cigarettes daily) Hx Alcohol Use: Yes (2 mini shots daily) Hx Substance Use: Yes (former heroin; finished methadone tx) - Immunization History Hx Tetanus Toxoid Vaccination: Yes Hx Influenza Vaccination: Yes Hx Pneumococcal Vaccination: Yes Review Of Systems Except As Marked, All Systems Reviewed And Found Negative. Constitutional: Negative for: Fever, Chills Gastrointestinal: Positive for: Other (flank pain). Negative for: Nausea, Vomiting Genitourinary: Negative for: Dysuria, Hematuria Musculoskeletal: Positive for: Back Pain Physical Exam - Physical Exam Additional Physical Exam Comments: Constitutional: No acute distress. Head: Normocephalic. Atraumatic. Eyes: PERRL. ENT: Moist mucous membranes. Neck: Supple. Cardiovascular: Regular rate. Radial pulse 2+ bilaterally. Chest: No tenderness. Respiratory: Clear to auscultation bilaterally. GI: Soft. Nontender. Nondistended. Back: No CVA tenderness. Musculoskeletal: No tenderness or swelling of extremities.z Skin: No rash. Neurologic: Alert, no focal deficit. ED Course And Treatment O2 Sat by Pulse Oximetry: 99 (RA) Pulse Ox Interpretation: Normal Medical Decision Making Medical Decision Making: UA shows no UTI, 1+ blood. Patient states she has appointment set up with urology for cystoscopy. Will discharge, advised NSAIDs, flomax. Toradol IM administered here. Disposition - Disposition Disposition: HOME/ ROUTINE Disposition Time: 17:06 Condition: STABLE Prescriptions: Tamsulosin [Flomax] 0.4 mg PO DAILY #5 cap Instructions: Blood in the Urine (Hematuria) in Adults Forms: [employer] (Algerian) - Clinical Impression Clinical Impression: Hematuria - Scribe Statement The provider has reviewed the documentation as recorded by the Jenaroibe Tae Zhao Provider Attestation: All medical record entries made by the Scribe were at my direction and personally dictated by me. I have reviewed the chart and agree that the record accurately reflects my personal performance of the history, physical exam, medical decision making, and the department course for this patient. I have also personally directed, reviewed, and agree with the discharge instructions and disposition.
[2018-11-11 16:34] LABS: SQUAMOUS EPITHIAL 5 /hpf (0-5); URINE BACTERIA RARE (<OCC); URINE BILIRUBIN NEGATIVE (NEGATIVE); URINE BLOOD 1+ (NEGATIVE); URINE CLARITY Clear (Clear); URINE COLOR Yellow (YELLOW); URINE GLUCOSE (UA) NORMAL (Normal); URINE LEUKOCYTE ESTERASE NEG Leu/uL (Negative); URINE PROTEIN NEGATIVE (NEGATIVE)
== END 2018-11-11 18:09 | disposition home or self-care (01) ==
LOC: C.ER 15:35
DX: R31.9 Hematuria, unspecified (principal)
CPT/HCPCS: 81001; 82948; 87086; 96372; 99285; J1885

== ENCOUNTER 2018-11-13 21:42 | Emergency (ER) | payer MEDICAID ==
[2018-11-13 21:42] VITALS: BMI 19.8
[2018-11-13 22:02] VITALS: RESP 20; O2SAT 97
--- NOTE | 2018-11-13 22:32 | C.PDOC ---
History Of Present Illness 68 year old female presents to the ER with multiple vague complaints. She was last seen on 11/11/18 for similar multiple and vague complaints. [place], patient receiving tramadol and benzos. Prior utox have been positive for barbiturates and narcotics. Denies fever. Time Seen by Provider: 11/13/18 22:08 Chief Complaint (Nursing): Chest Pain History Per: Patient History/Exam Limitations: no limitations Onset/Duration Of Symptoms: Days Current Symptoms Are (Timing): Still Present Exacerbating Factors: None Recent travel outside of the [place]: No Past Medical History Reviewed: Historical Data, Nursing Documentation, Vital Signs Vital Signs: Last Vital Signs Temp 97.7 F 11/13/18 21:57 Pulse 110 H 11/13/18 21:57 Resp 20 11/13/18 21:57 BP 125/87 11/13/18 21:57 Pulse Ox 97 11/13/18 21:57 - Medical History PMH: Arthritis, COPD, Hepatitis, HTN Denies: Chronic Kidney Disease Surgical History: Tonsillectomy Family History: States: Unknown Family Hx - Social History Hx Tobacco Use: Yes (Light smoker <10 cigarettes daily) Hx Alcohol Use: Yes (2 mini shots daily) Hx Substance Use: No (former heroin; finished methadone tx) - Immunization History Hx Tetanus Toxoid Vaccination: Yes Hx Influenza Vaccination: Yes Hx Pneumococcal Vaccination: Yes Review Of Systems Constitutional: Negative for: Fever, Chills Cardiovascular: Negative for: Chest Pain, Palpitations Respiratory: Negative for: Cough, Shortness of Breath Gastrointestinal: Negative for: Nausea, Vomiting Neurological: Negative for: Weakness, Numbness Physical Exam - Physical Exam Appears: Non-toxic, Other (Bizarre, seems ETOH intoxicated) Skin: Normal Color, Warm, Dry Head: Atraumatic, Normacephalic Eye(s): bilateral: Normal Inspection Oral Mucosa: Moist Chest: Symmetrical, No Tenderness Cardiovascular: Rhythm Regular Respiratory: Normal Breath Sounds, No Rales, No Rhonchi, No Wheezing Gastrointestinal/Abdominal: Soft, No Tenderness Back: No CVA Tenderness Neurological/Psych: Oriented x3, Normal Speech Gait: Steady ED Course And Treatment - Laboratory Results Lab Interpretation: Abnormal (FS 144) O2 Sat by Pulse Oximetry: 97 Medical Decision Making Medical Decision Making: multiple vague complaints normal FS 144 denies TILLMAN but is her initial triage complaint avg Q2D ED visits for vague similar complaints h/o U tox + chucky/narcotics [place] [facility] +Tramadol, Benzo's no acute issues ok for opt f/u. Disposition Doctor Will See Patient In The: Office Counseled Patient/Family Regarding: Studies Performed, Diagnosis - Disposition Referrals: Milton Ruelas MD [Staff Provider] - Disposition: HOME/ ROUTINE Disposition Time: 22:35 Condition: GOOD Additional Instructions: outpatient medications for your chronic pain issues follow-up with Dr. Ruelas Instructions: Chronic Pain (DC) Forms: [employer] (Thai) - Clinical Impression Clinical Impression: Chronic pain - Scribe Statement The provider has reviewed the documentation as recorded by the Scribe King Hartley All medical record entries made by the Scribe were at my direction and personally dictated by me. I have reviewed the chart and agree that the record accurately reflects my personal performance of the history, physical exam, medical decision making, and the department course for this patient. I have also personally directed, reviewed, and agree with the discharge instructions and disposition.
[2018-11-13 23:04] VITALS: BP 131/82; PULSE 91; TEMP 98.2
== END 2018-11-14 00:21 | disposition home or self-care (01) ==
LOC: C.ER 21:42
DX: G89.29 Other chronic pain (principal)

== ENCOUNTER 2018-11-20 18:58 | Emergency (ER) | payer MEDICAID, MEDICARE, OTHER ==
[2018-11-20 18:59] VITALS: BMI 19.8
[2018-11-20 19:06] VITALS: BP 148/94; PULSE 104; RESP 20; TEMP 98.9; O2SAT 97
--- NOTE | 2018-11-20 19:46 | C.PDOC ---
History Of Present Illness Patient presents to ED c/o left low back/flank pain that is chronic but worsened today. She has h/o left sided kidney stone, and has urologist that she is going to follow with. Patient states she is supposed to be having a "procedure" done for the kidney stone next week, but she came to ER because her pain increased. Patient denies fever, abdominal pain, nausea/vomiting/diarrhea, dysuria/hematuria. Time Seen by Provider: 11/20/18 19:03 Chief Complaint (Nursing): Back Pain History Per: Patient History/Exam Limitations: no limitations Onset/Duration Of Symptoms: Hrs Current Symptoms Are (Timing): Still Present Quality Of Discomfort: "Pain" Severity: Moderate Previous Symptoms: Chronic Pain Associated Symptoms: None. denies: Incontinence, New Weakness, New Numbness Past Medical History Reviewed: Historical Data, Nursing Documentation, Vital Signs Vital Signs: Last Vital Signs Temp 98.9 F 11/20/18 19:04 Pulse 104 H 11/20/18 19:04 Resp 20 11/20/18 19:04 BP 148/94 H 11/20/18 19:04 Pulse Ox 97 11/20/18 19:04 - Medical History PMH: Arthritis, COPD, Hepatitis, HTN Surgical History: Tonsillectomy Family History: States: No Known Family Hx - Social History Hx Tobacco Use: Yes (Light smoker <10 cigarettes daily) Hx Alcohol Use: Yes (2 mini shots daily) Hx Substance Use: Yes (former heroin; finished methadone tx) - Immunization History Hx Tetanus Toxoid Vaccination: Yes Hx Influenza Vaccination: Yes Hx Pneumococcal Vaccination: Yes Review Of Systems Constitutional: Negative for: Fever, Chills Cardiovascular: Negative for: Chest Pain, Palpitations Respiratory: Negative for: Cough, Shortness of Breath Gastrointestinal: Negative for: Nausea, Vomiting, Abdominal Pain Genitourinary: Negative for: Dysuria Musculoskeletal: Positive for: Back Pain (left ), Other (chronic B/L leg edema) Skin: Negative for: Rash Neurological: Negative for: Weakness, Numbness Physical Exam - Physical Exam Appears: Well, Non-toxic, In Acute Distress (in mild pain) Skin: Normal Color, Warm, Dry, No Rash Oral Mucosa: Moist Cardiovascular: Rhythm Regular Respiratory: Normal Breath Sounds, No Rales, No Rhonchi, No Wheezing Gastrointestinal/Abdominal: Normal Exam, Bowel Sounds, Soft, No Tenderness Back: CVA Tenderness (mild left sided ), No Vertebral Tenderness, Paraspinal Tenderness (left lumbar) Extremity: Tenderness ED Course And Treatment O2 Sat by Pulse Oximetry: 97 (RA) Pulse Ox Interpretation: Normal Progress Note: Patient given IM toradol for pain. Reevaluation Time: 20:00 Reassessment Condition: Improved (On reassessment, patient is resting comfortably and states her pain has improved. Left sided renal colic/kidney stone is chronic, and patient already has scheduled follow up appt with her urologist for procedure to be done. Patient instructed to return to ED if her symptoms worsen.) Disposition Counseled Patient/Family Regarding: Diagnosis, Need For Followup - Disposition Referrals: Milton Aranda MD [Staff Provider] - Disposition: HOME/ ROUTINE Disposition Time: 20:00 Condition: STABLE Additional Instructions: FOLLOW UP WITH YOUR DOCTOR IN 1-2 DAYS, AND WITH YOUR UROLOGIST WITHIN 1 WEEK USE MEDICATION NEEDED FOR PAIN RETURN TO ER IF SYMPTOMS WORSEN Prescriptions: Naproxen 375 mg PO BID PRN #20 tablet PRN Reason: pain Instructions: Low Back Pain (DC) Forms: [facility] (Bolivian) Print Language: SOUTH SUDANESE - Clinical Impression Clinical Impression: Left low back pain
== END 2018-11-20 20:01 | disposition home or self-care (01) ==
LOC: C.ER 18:58
DX: M54.5 Low back pain (principal); I10 Essential (primary) hypertension; Z87.442 Personal history of urinary calculi; F17.210 Nicotine dependence, cigarettes, uncomplicated
CPT/HCPCS: 82948; 96372; 99283; J1885

== ENCOUNTER 2018-11-25 22:37 | Emergency (ER) | payer MEDICARE, MEDICAID, OTHER ==
[2018-11-25 22:38] VITALS: BMI 19.8
--- NOTE | 2018-11-26 01:43 | C.PDOC ---
History Of Present Illness 68 year old female with PMHx of chronic back pain presents to the ED c/o back pain and leg edema. Patient was seen in the ED numerous times with similar presentation. Patient's last visit had negative workup and doppler US for her legs. Patient requesting pain medications. Patient ambulated using her walker. Patient denies fever, chills, SOB, CP, nausea, vomit, diarrhea, bowel incontinence, saddle anesthesia, weakness, numbness. Time Seen by Provider: 11/26/18 01:36 Chief Complaint (Nursing): Back Pain History Per: Patient History/Exam Limitations: no limitations Onset/Duration Of Symptoms: Days Current Symptoms Are (Timing): Still Present Quality Of Discomfort: "Pain" Previous Symptoms: Back Pain Recent travel outside of the [place]: No Additional History Per: Patient Past Medical History Reviewed: Historical Data, Nursing Documentation, Vital Signs Vital Signs: Last Vital Signs Temp 97.8 F 11/25/18 23:39 Pulse 92 H 11/25/18 23:39 Resp 20 11/25/18 23:39 BP 142/86 11/25/18 23:39 Pulse Ox 100 11/25/18 23:39 - Medical History PMH: Arthritis, COPD, Hepatitis, HTN Denies: Chronic Kidney Disease Surgical History: Tonsillectomy Family History: States: Unknown Family Hx - Social History Hx Tobacco Use: Yes (Light smoker <10 cigarettes daily) Hx Alcohol Use: Yes (2 mini shots daily) Hx Substance Use: Yes (former heroin; finished methadone tx) - Immunization History Hx Tetanus Toxoid Vaccination: Yes Hx Influenza Vaccination: Yes Hx Pneumococcal Vaccination: Yes Review Of Systems Constitutional: Negative for: Fever, Chills Cardiovascular: Negative for: Chest Pain Respiratory: Negative for: Shortness of Breath Gastrointestinal: Negative for: Nausea, Vomiting, Abdominal Pain Musculoskeletal: Positive for: Back Pain, Leg Pain Skin: Negative for: Rash Neurological: Negative for: Weakness, Numbness, Headache Physical Exam - Physical Exam Appears: Non-toxic, No Acute Distress Skin: Warm, Dry Head: Normacephalic Eye(s): bilateral: Normal Inspection Neck: Supple Chest: Symmetrical Cardiovascular: Rhythm Regular Respiratory: No Rales, No Rhonchi, No Wheezing Gastrointestinal/Abdominal: Soft, No Tenderness, No Guarding, No Rebound Back: Other (mild lumbar discomfort) Extremity: Capillary Refill (< 2 seconds) Extremity: Bilateral: Atraumatic, Normal Color And Temperature, Normal ROM, Other (trace pedal edema ) Pulses: Left Dorsalis Pedis: Normal, Right Dorsalis Pedis: Normal Neurological/Psych: Oriented x3, Normal Speech, Normal Cognition, Normal Motor, Normal Sensation Gait: With Assistance (walker) ED Course And Treatment O2 Sat by Pulse Oximetry: 100 (ON RA) Pulse Ox Interpretation: Normal Progress Note: Plan: - Toradol 60 mg IM Reevaluation Time: 02:57 Reassessment Condition: Improved Disposition Counseled Patient/Family Regarding: Studies Performed, Diagnosis, Need For Followup - Disposition Referrals: Milton Aranda MD [Staff Provider] - Disposition: HOME/ ROUTINE Disposition Time: 01:43 Condition: FAIR Instructions: Low Back Pain (DC), Chronic Pain Forms: [facility] (Slovak) - Clinical Impression Clinical Impression: Chronic pain disorder - Scribe Statement The provider has reviewed the documentation as recorded by the Scribe Chan Gillette All medical record entries made by the Scribe were at my direction and personally dictated by me. I have reviewed the chart and agree that the record accurately reflects my personal performance of the history, physical exam, medical decision making, and the department course for this patient. I have also personally directed, reviewed, and agree with the discharge instructions and disposition.
[2018-11-26 03:31] VITALS: BP 130/70; PULSE 70; RESP 14; TEMP 97.5; O2SAT 98
== END 2018-11-26 03:31 | disposition home or self-care (01) ==
LOC: C.ER 22:37
DX: G89.29 Other chronic pain (principal); M54.9 Dorsalgia, unspecified; I10 Essential (primary) hypertension; J44.9 Chronic obstructive pulmonary disease, unspecified; F17.210 Nicotine dependence, cigarettes, uncomplicated

== ENCOUNTER 2018-11-29 15:15 | Emergency (ER) | payer MEDICARE, MEDICAID ==
[2018-11-29 15:16] VITALS: BMI 19.8
--- NOTE | 2018-11-29 17:43 | C.PDOC ---
History Of Present Illness 68 year old female presents to the ED for evaluation of a mild headache that has been intermittent, but became more persistent yesterday. Patient describes the headache as a pressure-like sensation, but denies headache currently. She also reports intermittent chest pain. Patient also reports swelling to her legs, despite being compliant with her water pills. Patient denies vision change, dizziness, nausea, vomiting, extremity numbness/weakness. <Doris Jovel - Last Filed: 11/29/18 18:56> History Per: Patient History/Exam Limitations: no limitations Onset/Duration Of Symptoms: Intermittent Episodes, Persistent Current Symptoms Are (Timing): Still Present Quality: Pressure, "Pain" Associated Symptoms: denies: Blurred Vision, Nausea, Vomiting, Extremity Weakne ss Additional History Per: Patient <Doris Jovel - Last Filed: 11/29/18 18:56> <Dom Roberto - Last Filed: 11/29/18 22:26> Chief Complaint (Nursing): Headache Past Medical History Reviewed: Historical Data, Nursing Documentation, Vital Signs Vital Signs: Last Vital Signs Temp 98.2 F 11/29/18 15:42 Pulse 116 H 11/29/18 15:42 Resp 20 11/29/18 15:42 BP 129/90 11/29/18 15:42 Pulse Ox 100 11/29/18 15:42 - Medical History PMH: Arthritis, COPD, Hepatitis, HTN Denies: Chronic Kidney Disease Surgical History: Tonsillectomy Family History: States: Unknown Family Hx - Social History Hx Tobacco Use: Yes (Light smoker <10 cigarettes daily) Hx Alcohol Use: Yes (2 mini shots daily) Hx Substance Use: Yes (former heroin; finished methadone tx) - Immunization History Hx Tetanus Toxoid Vaccination: Yes Hx Influenza Vaccination: Yes Hx Pneumococcal Vaccination: Yes <Doris Jovel - Last Filed: 11/29/18 18:56> Vital Signs: Last Vital Signs Temp 98.6 F 11/29/18 18:00 Pulse 99 H 11/29/18 20:29 Resp 18 11/29/18 20:29 BP 136/79 11/29/18 20:29 Pulse Ox 99 11/29/18 20:29 <Dom Roberto - Last Filed: 11/29/18 22:26> Review Of Systems Eyes: Negative for: Vision Change Cardiovascular: Positive for: Chest Pain Gastrointestinal: Negative for: Nausea, Vomiting Neurological: Positive for: Headache. Negative for: Dizziness <Doris Jovel - Last Filed: 11/29/18 18:56> Physical Exam - Physical Exam Appears: Non-toxic, No Acute Distress Skin: Normal Color, Warm, Dry Head: Atraumatic, Normacephalic Eye(s): bilateral: Normal Inspection Oral Mucosa: Moist Neck: Supple Chest: Symmetrical, No Deformity, No Tenderness Cardiovascular: Rhythm Regular, No Murmur Respiratory: Normal Breath Sounds, No Rales, No Rhonchi, No Wheezing Extremity: Normal ROM, Capillary Refill (less than 2 seconds ), Other (swelling to bilateral lower extremities ) Pulses: Left Dorsalis Pedis: Normal, Right Dorsalis Pedis: Normal Neurological/Psych: Oriented x3, Normal Speech, Normal Cognition <BeckaDoris - Last Filed: 11/29/18 18:56> ED Course And Treatment ECG: Interpreted By Me, Viewed By Me ECG Rhythm: Sinus Tachycardia Interpretation Of ECG: Sinus Tachycardia at rate 119bpm. Nonspecific T wave abnormalities. Rate From EC O2 Sat by Pulse Oximetry: 100 (on RA) Pulse Ox Interpretation: Normal Progress Note: Bloodwork, urinalysis, CXR, EKG ordered and reviewed. <BeckaDoris - Last Filed: 11/29/18 18:56> - Laboratory Results Result Diagrams: 11/29/18 19:11 11/29/18 19:11 Lab Results: PT 11.0 SECONDS (9.7-12.2) 11/29/18 19:11 INR 1.0 11/29/18 19:11 APTT 32 SECONDS (21-34) 11/29/18 19:11 D-Dimer, Quantitative 224 ng/mlDDU (0-243) 11/29/18 19:11 Troponin I < 0.0120 ng/mL (0.00-0.120) 11/29/18 19:11 NT-Pro-B Natriuret Pep 68.6 pg/mL (0-900) 11/29/18 19:11 Total Bilirubin 0.6 mg/dL (0.2-1.3) 11/29/18 19:11 AST 39 U/L (14-36) H D 11/29/18 19:11 ALT 31 U/L (9-52) 11/29/18 19:11 Alkaline Phosphatase 117 U/L (38-126) 11/29/18 19:11 Total Protein 7.5 g/dL (6.3-8.3) 11/29/18 19:11 Albumin 4.0 g/dL (3.5-5.0) 11/29/18 19:11 Globulin 3.5 gm/dL (2.2-3.9) 11/29/18 19:11 Albumin/Globulin Ratio 1.2 (1.0-2.1) 11/29/18 19:11 Urine Color Yellow (YELLOW) 11/29/18 18:31 Urine Clarity Clear (Clear) 11/29/18 18: Urine pH 5.0 (5.0-8.0) 11/29/18 18:31 Ur Specific [place] 1.013 (1.003-1.030) 11/29/18 18:31 Urine Protein Negative mg/dL (NEGATIVE) 11/29/18 18:31 Urine Glucose (UA) Normal mg/dL (Normal) 11/29/18 18:31 Urine Ketones Negative mg/dL (NEGATIVE) 11/29/18 18:31 Urine Blood Negative (NEGATIVE) 11/29/18 18:31 Urine Nitrate Negative (NEGATIVE) 11/29/18 18:31 Urine Bilirubin Negative (NEGATIVE) 11/29/18 18:31 Urine Urobilinogen 2.0 mg/dL (0.2-1.0) H 11/29/18 18:31 Ur Leukocyte Esterase Neg Vanessa/uL (Negative) 11/29/18 18:31 Urine WBC (Auto) < 1 /hpf (0-5) 11/29/18 18:31 Urine RBC (Auto) < 1 /hpf (0-3) 11/29/18 18:31 Ur Squamous Epith Cells 2 /hpf (0-5) 11/29/18 18:31 <Dom Roberto - Last Filed: 11/29/18 22:26> Disposition - Disposition Disposition Time: 18:57 <Doris Jovel - Last Filed: 11/29/18 18:56> Counseled Patient/Family Regarding: Studies Performed, Diagnosis, Need For Fo llowup <Dom Roberto - Last Filed: 11/29/18 22:26> - Disposition Disposition: HOME/ ROUTINE Condition: FAIR Instructions: Headache, Adult (DC) Forms: [facility] (Czech) - Clinical Impression Clinical Impression: Headache - PA / [facility] / Resident Statement MD/DO has reviewed & agrees with the documentation as recorded. - Scribe Statement The provider has reviewed the documentation as recorded by the Scribe (Natividad Haines) All medical record entries made by the Scribe were at my direction and personally dictated by me. I have reviewed the chart and agree that the record accurately reflects my personal performance of the history, physical exam, medical decision making, and the department course for this patient. I have also personally directed, reviewed, and agree with the discharge instructions and disposition. <Doris Jovel - Last Filed: 11/29/18 18:56> Physician Patient Turnover Patient Signed Over To: Dom Roberto Handoff Comments: labs and dispo <Doris Jovel - Last Filed: 11/29/18 18:56>
[2018-11-29 18:41] LABS: SQUAMOUS EPITHIAL 2 /hpf (0-5); URINE BILIRUBIN NEGATIVE (NEGATIVE); URINE BLOOD NEGATIVE (NEGATIVE); URINE CLARITY Clear (Clear); URINE COLOR Yellow (YELLOW); URINE GLUCOSE (UA) NORMAL (Normal); URINE LEUKOCYTE ESTERASE NEG Leu/uL (Negative); URINE PROTEIN NEGATIVE (NEGATIVE)
[2018-11-29 19:11] VITALS: RESP 18
[2018-11-29 19:14] LABS: BASO % 0.6 % (0.0-2.0); EOS % 0.6 % (0.0-4.0); HEMOGLOBIN 12.4 g/dL (11.0-16.0); LYMPH # 2.6 K/uL (1.0-4.3); MEAN CELL VOLUME 91.4 fL (81.0-99.0); MEAN CORPUSCULAR HEMOGLOBIN 28.8 pg (27.0-31.0); MEAN CORPUSCULAR HGB CONC 31.5 g/dL (33.0-37.0); MEAN PLATELET VOLUME 8.9 fL (7.2-11.7); MONO # 0.6 K/uL (0.0-0.8); MONO % 8.4 % (0.0-10.0); NEUT # 3.9 K/uL (1.8-7.0); NEUT % 54.4 % (50.0-75.0); NRBC % 0.1 % (0.0-2.0); RBC 4.31 Mil/uL (3.80-5.20); RED CELL DISTRIBUTION WIDTH 15.2 % (11.5-14.5); WHITE BLOOD COUNT 7.1 K/uL (4.8-10.8)
[2018-11-29 19:40] LABS: ALB/GLOB RATIO 1.2 (1.0-2.1); ALT/SGPT 31 U/L (9-52); AST/SGOT 39 U/L (14-36); BLOOD UREA NITROGEN 14 mg/dL (7-17); CALCIUM 9.1 mg/dl (8.6-10.4); GFR NON-AFRICAN AMERICAN > 60
[2018-11-29 19:50] LABS: B-TYPE NATRIURETIC PEPTIDE 68.6 pg/mL (0-900); CK-MB 0.81 ng/mL (0.0-3.38)
[2018-11-29 20:30] VITALS: O2SAT 99
[2018-11-29 23:09] VITALS: TEMP 98.2
[2018-11-30 00:31] VITALS: BP 142/82; PULSE 83
--- NOTE | 2018-11-30 08:20 | CT ---
Date of service: 11/29/2018 PROCEDURE: CT HEAD WITHOUT CONTRAST. HISTORY: headache COMPARISON: 03/09/2018 TECHNIQUE: Axial computed tomography images were obtained through the head/brain without intravenous contrast. Radiation dose: Total exam DLP = 986.93 mGy-cm. This CT exam was performed using one or more of the following dose reduction techniques: Automated exposure control, adjustment of the mA and/or kV according to patient size, and/or use of iterative reconstruction technique. FINDINGS: HEMORRHAGE: No intracranial hemorrhage. BRAIN: No mass effect or edema. VENTRICLES: Unremarkable. No hydrocephalus. CALVARIUM: Unremarkable. PARANASAL SINUSES: Unremarkable as visualized. No significant inflammatory changes. MASTOID AIR CELLS: Unremarkable as visualized. No inflammatory changes. OTHER FINDINGS: Intracranial arterial calcifications. IMPRESSION: No acute intracranial abnormality. If symptoms persists, consider correlation with MRI. A preliminary report was generated at 10:12 p.m. on 11/29/[address] Donnell Liu from [employer] [employer].
--- NOTE | 2018-11-30 11:54 | RAD ---
Date of service: 11/29/2018 HISTORY: SOB, Chest pain COMPARISON: Comparison made with chest radiograph dated 11/04/2018 FINDINGS: LUNGS: Poor inspiration with low lung volumes, crowded bronchovascular markings and mild bibasilar atelectasis. The there appears to be some mild right apical pleural thickening.. PLEURA: No significant pleural effusion identified, no pneumothorax apparent. CARDIOVASCULAR: No aortic atherosclerotic calcification present. Normal cardiac size. No pulmonary vascular congestion. OSSEOUS STRUCTURES: No significant abnormalities. VISUALIZED UPPER ABDOMEN: Normal. OTHER FINDINGS: None. IMPRESSION: Poor inspiration with low lung volumes, crowded bronchovascular markings and mild bibasilar atelectasis.....
== END 2018-11-30 00:20 | disposition home or self-care (01) ==
LOC: C.ER 15:15
DX: R51 Headache (principal); I10 Essential (primary) hypertension; J44.9 Chronic obstructive pulmonary disease, unspecified; F17.210 Nicotine dependence, cigarettes, uncomplicated

== ENCOUNTER 2018-12-10 13:49 | Emergency (ER) | payer MEDICARE, MEDICAID | END 2018-12-10 18:55 | disposition home or self-care (01) | LOC: C.ER 13:49 ==

== ENCOUNTER 2018-12-18 16:23 | Emergency (ER) | payer MEDICARE, MEDICAID ==
[2018-12-18 16:24] VITALS: BMI 19.8
[2018-12-18 16:38] VITALS: BP 131/78; PULSE 108; RESP 18; TEMP 98.2; O2SAT 100
--- NOTE | 2018-12-18 17:47 | C.PDOC ---
History Of Present Illness Patient is a 68 year old female with PMHx of HTN, diabetes, Hepatitis C, arthritis, COPD and CHF on Lasix 20mg BID presents to the ED complaining of pain, swelling, and burning sensation to bilateral legs for one week. Also notes darkening of skin of bilateral lower legs. Denies any shortness of breath, chest pain, fever, chills, weakness or numbness. Pt states that she is compliant with her lasix but that her doctor has had to increase her doses in the past. Pt is hoping that bloodwork can be done to look for "toxicity". PMD: Dr. Aranda Time Seen by Provider: 12/18/18 17:29 Chief Complaint (Nursing): Lower Extremity Problem/Injury History Per: Patient History/Exam Limitations: no limitations Onset/Duration Of Symptoms: Days (one week ) Current Symptoms Are (Timing): Still Present Past Medical History Reviewed: Historical Data, Nursing Documentation, Vital Signs Vital Signs: Last Vital Signs Temp 98.2 F 12/18/18 16:34 Pulse 108 H 12/18/18 16:34 Resp 18 12/18/18 16:34 BP 131/78 12/18/18 16:34 Pulse Ox 100 12/18/18 16:34 - Medical History PMH: Arthritis, COPD, Diabetes, Hepatitis (C), HTN Denies: Chronic Kidney Disease Surgical History: Tonsillectomy Family History: States: No Known Family Hx - Social History Hx Tobacco Use: Yes (Light smoker <10 cigarettes daily) Hx Alcohol Use: Yes (2 mini shots daily) Hx Substance Use: Yes (former heroin; finished methadone tx) - Immunization History Hx Tetanus Toxoid Vaccination: Yes Hx Influenza Vaccination: Yes Hx Pneumococcal Vaccination: Yes Review Of Systems Except As Marked, All Systems Reviewed And Found Negative. Constitutional: Negative for: Fever, Chills Cardiovascular: Negative for: Chest Pain Respiratory: Negative for: Shortness of Breath Musculoskeletal: Positive for: Leg Pain (B/L leg pain with associated burning and swelling sensation ) Neurological: Negative for: Weakness, Numbness Physical Exam - Physical Exam Appears: Well, Non-toxic, No Acute Distress Skin: Warm, Dry, No Rash Head: Normacephalic Eye(s): bilateral: Normal Inspection Ear(s): Bilateral: Normal Nose: Normal Oral Mucosa: Moist Tongue: Normal Appearing Teeth: Other (missing several front teeth) Neck: Normal ROM, Supple Lymphatic: Deferred Chest: Symmetrical Cardiovascular: Rhythm Regular Respiratory: Normal Breath Sounds, No Rales, No Rhonchi, No Wheezing Gastrointestinal/Abdominal: Normal Exam, Soft Back: Normal Inspection Extremity: Pedal Edema (pitting edema to B/L lower extremities ) Extremity: Bilateral: Atraumatic Neurological/Psych: Oriented x3, Normal Speech Gait: With Assistance (walker) ED Course And Treatment - Laboratory Results Result Diagrams: 12/18/18 18:00 12/18/18 18:17 O2 Sat by Pulse Oximetry: 100 (RA) Pulse Ox Interpretation: Normal Medical Decision Making Medical Decision Making: Initial Impression: leg edema secondary to CHF. Patient may need some adjustments to her lasix dosages at home. Initial Plan: - Bloodwork - Lasix 40mg IVP Disposition - Disposition Referrals: Milton Aranda MD [Staff Provider] - Disposition: HOME/ ROUTINE Disposition Time: 18:51 Condition: IMPROVED Additional Instructions: Shaheed, thank you for letting us take care of you today. Return to the ER if your symptoms worsen, or if any problems. For now, I would recommend that you double your lasix dose in the morning. Please follow up with Dr. Aranda in 2-3 days for a re-evaluation -- as he may want to adjust your medications. Instructions: Dependent Edema (DC), Heart Failure, Adult (DC) Forms: [facility] (P[place]ua [place]inean) Print Language: SLOVENIAN - POA Present On Arrival: None - Clinical Impression Clinical Impression: CHF (congestive heart failure), Peripheral edema - Scribe Statement The provider has reviewed the documentation as recorded by the Scribgrant Higgins All medical record entries made by the Scribe were at my direction and personally dictated by me. I have reviewed the chart and agree that the record accurately reflects my personal performance of the history, physical exam, medical decision making, and the department course for this patient. I have also personally directed, reviewed, and agree with the discharge instructions and disposition.
[2018-12-18 18:22] LABS: BASO % 0.7 % (0.0-2.0); EOS # 0.1 K/uL (0.0-0.7); HEMOGLOBIN 12.1 g/dL (11.0-16.0); LYMPH # 2.5 K/uL (1.0-4.3); LYMPH % 36.4 % (20.0-40.0); MEAN PLATELET VOLUME 9.2 fL (7.2-11.7); MONO # 0.5 K/uL (0.0-0.8); MONO % 6.8 % (0.0-10.0); NEUT # 3.8 K/uL (1.8-7.0); NEUT % 55.1 % (50.0-75.0); RBC 4.32 Mil/uL (3.80-5.20); RED CELL DISTRIBUTION WIDTH 15.9 % (11.5-14.5); WHITE BLOOD COUNT 6.8 K/uL (4.8-10.8)
[2018-12-18 18:32] LABS: MEAN CELL VOLUME 90.5 fL (81.0-99.0)
[2018-12-18 18:41] LABS: B-TYPE NATRIURETIC PEPTIDE 55.7 pg/mL (0-900)
[2018-12-18 18:43] LABS: ALB/GLOB RATIO 1.1 (1.0-2.1); ALT/SGPT 25 U/L (9-52); AST/SGOT 44 U/L (14-36); BLOOD UREA NITROGEN 20 mg/dL (7-17); CALCIUM 8.5 mg/dl (8.6-10.4); GFR NON-AFRICAN AMERICAN > 60
== END 2018-12-18 19:18 | disposition home or self-care (01) ==
LOC: C.ER 16:23
DX: I11.0 Hypertensive heart disease with heart failure (principal); I50.9 Heart failure, unspecified; R60.9 Edema, unspecified; E11.9 Type 2 diabetes mellitus without complications; M19.90 Unspecified osteoarthritis, unspecified site; F17.210 Nicotine dependence, cigarettes, uncomplicated
CPT/HCPCS: 80053; 83880; 85025; 96374; 99283; J1940

== ENCOUNTER 2018-12-26 17:40 | Emergency (ER) | payer MEDICARE, MEDICAID ==
[2018-12-26 17:40] VITALS: BMI 19.8
[2018-12-26 17:55] VITALS: O2SAT 100
--- NOTE | 2018-12-26 20:12 | C.PDOC ---
History Of Present Illness 68 y/o female with a PMHx of HTN, DM, COPD, presents to the ED complaining of chronic lower extremity pain. States she drinks a lot of PO fluids and was not aware it could worsen her chronic leg edema. Otherwise she denies any chest pain, SOB, palpitations, dizziness, or other complaints. Patient reports good compliance with Lasix. Time Seen by Provider: 12/26/18 20:08 Chief Complaint (Nursing): Lower Extremity Problem/Injury History Per: Patient History/Exam Limitations: no limitations Onset/Duration Of Symptoms: Days Current Symptoms Are (Timing): Still Present Past Medical History Reviewed: Historical Data, Nursing Documentation, Vital Signs Vital Signs: Last Vital Signs Temp 98.2 F 12/26/18 17:53 Pulse 82 12/26/18 17:53 Resp 18 12/26/18 17:53 BP 112/70 12/26/18 17:53 Pulse Ox 100 12/26/18 17:53 - Medical History PMH: Arthritis, COPD, Diabetes, Hepatitis (C), HTN Denies: Chronic Kidney Disease Surgical History: Tonsillectomy Family History: States: Unknown Family Hx - Social History Hx Tobacco Use: Yes (Light smoker <10 cigarettes daily) Hx Alcohol Use: Yes (2 mini shots daily) Hx Substance Use: Yes (former heroin; finished methadone tx) - Immunization History Hx Tetanus Toxoid Vaccination: Yes Hx Influenza Vaccination: Yes Hx Pneumococcal Vaccination: Yes Review Of Systems Except As Marked, All Systems Reviewed And Found Negative. Constitutional: Negative for: Fever, Chills Eyes: Negative for: Vision Change Cardiovascular: Negative for: Chest Pain, Palpitations Respiratory: Negative for: Shortness of Breath Gastrointestinal: Negative for: Vomiting Musculoskeletal: Positive for: Leg Pain (chronic) Skin: Negative for: Rash Neurological: Negative for: Weakness, Dizziness Physical Exam - Physical Exam Appears: Non-toxic, No Acute Distress, Other (Initially sleeping, patient easily arousable and at baseline mentation) Skin: Warm, Dry Head: Atraumatic, Normacephalic Eye(s): bilateral: Normal Inspection Neck: Normal ROM Chest: Symmetrical Cardiovascular: Rhythm Regular, No Murmur, No JVD Respiratory: Normal Breath Sounds, No Rales, No Rhonchi, No Wheezing Gastrointestinal/Abdominal: Soft, No Distention Extremity: Normal ROM, No Tenderness, Capillary Refill (< 2 sec), No Deformity, Swelling (1/4 pitting edema to the bilateral lower extremities, baseline) Pulses: Left Dorsalis Pedis: Normal, Right Dorsalis Pedis: Normal Neurological/Psych: Normal Motor, Normal Sensation, Other (Neurologically intact, no focal deficit) Gait: With Assistance (using her walker, at baseline) ED Course And Treatment O2 Sat by Pulse Oximetry: 100 (RA) Pulse Ox Interpretation: Normal Medical Decision Making Medical Decision Making: baseline c/o leg pains many recent evals for same normal leg edema no clinical signs of CHF cautioned to not overdrink her diuretics Disposition Doctor Will See Patient In The: Office Counseled Patient/Family Regarding: Studies Performed, Diagnosis - Disposition Referrals: [facility] [Outside] [facility] [Outside] [facility] [Outside] [facility] [Outside] Disposition: HOME/ ROUTINE Disposition Time: 20:11 Condition: GOOD Additional Instructions: do not drink water excessively- may make your legs swell Forms: [facility] (Romanian) - Clinical Impression Clinical Impression: Leg pain - Scribe Statement The provider has reviewed the documentation as recorded by the Renita Duff Provider Attestation: All medical record entries made by the Jenaroibgrant were at my direction and personally dictated by me. I have reviewed the chart and agree that the record accurately reflects my personal performance of the history, physical exam, medical decision making, and the department course for this patient. I have also personally directed, reviewed, and agree with the discharge instructions and disposition.
[2018-12-26 23:53] VITALS: BP 114/72; PULSE 88; RESP 16; TEMP 98.1
== END 2018-12-26 23:53 | disposition home or self-care (01) ==
LOC: C.ER 17:40
DX: M79.606 Pain in leg, unspecified (principal)

== ENCOUNTER 2019-01-25 14:46 | Emergency (ER) | payer MEDICARE, OTHER ==
[2019-01-25 14:55] VITALS: BMI 20.5
[2019-01-25] MEDS ORDERED: Albuterol-Ipratrop 3 mg / 0.5 (3 ml) UD IH STA (15:03)
[2019-01-25] MEDS ORDERED: Albuterol 0.083% Inhal Sol (2.5 mg/3 mL) UD IH STA (15:03)
--- NOTE | 2019-01-25 15:24 | C.PDOC ---
History Of Present Illness 68 year old female brought to ED by EMS for cough and sore throat for the past 3 days. She has a PMHx of COPD, hypertension, CHF, and diabetes. Patient last had a COPD exacerbation in December and was admitted to [place]. She put on a nebulizer treatment, given IV steroids, and discharged home. Patient was also seen on 01/22/19 at [facility]. She was discharged home with albuterol and Tessalon for her cough. Previously done CXR was normal. Patient used her nebulizer at home and uses all her normal medication. Patient states that she takes Spiriva. She states that she continues to feel short of breath and feels a burning sensation in her chest when she coughs. She has never been intubated in the past. Patient continues to smoke. Patient states that she saw Dr. Aranda in his office and he did not change any of her medications. Patient denies palpitations, fever, chills, and diaphoresis. Time Seen by Provider: 01/25/19 14:58 Chief Complaint (Nursing): Cough, Cold, Congestion History Per: Patient History/Exam Limitations: no limitations Onset/Duration Of Symptoms: Days (3) Current Symptoms Are (Timing): Still Present Location Of Pain: Throat Associated Symptoms: Sore Throat, Cough. denies: Fever, Chills, Sputum Past Medical History Reviewed: Historical Data, Nursing Documentation, Vital Signs Vital Signs: Last Vital Signs Temp 98.6 F 01/25/19 14:55 Pulse 104 H 01/25/19 14:55 Resp 19 01/25/19 14:55 BP 130/89 01/25/19 14:55 Pulse Ox 100 01/25/19 14:55 - Medical History PMH: Arthritis, COPD, Diabetes, Hepatitis (C), HTN Denies: Chronic Kidney Disease Surgical History: Tonsillectomy Family History: States: Unknown Family Hx - Social History Hx Tobacco Use: Yes (Light smoker <10 cigarettes daily) Hx Alcohol Use: Yes (2 mini shots daily) Hx Substance Use: Yes (former heroin; finished methadone tx) - Immunization History Hx Tetanus Toxoid Vaccination: Yes Hx Influenza Vaccination: Yes Hx Pneumococcal Vaccination: Yes Review Of Systems Constitutional: Negative for: Fever, Chills, Weakness ENT: Positive for: Throat Pain Cardiovascular: Positive for: Chest Pain. Negative for: Palpitations Respiratory: Positive for: Cough, Shortness of Breath. Negative for: Sputum Neurological: Negative for: Weakness, Numbness, Dizziness Physical Exam - Physical Exam Appears: Non-toxic, No Acute Distress, Other (harsh, dry cough) Skin: Normal Color, Warm, Dry Head: Atraumatic, Normacephalic Neck: Normal ROM, Supple Chest: Symmetrical, No Deformity Cardiovascular: Rhythm Regular, No Murmur Respiratory: No Accessory Muscle Use, No Rales, No Rhonchi, No Wheezing Gastrointestinal/Abdominal: Soft, No Tenderness Extremity: Capillary Refill (<2 seconds) Extremity: Bilateral: Atraumatic, Normal Color And Temperature, Normal ROM Neurological/Psych: Oriented x3, Normal Speech (speaking full sentences), Normal Cognition ED Course And Treatment - Laboratory Results Result Diagrams: 01/25/19 15:51 01/25/19 15:51 Lab Interpretation: No Acute Changes O2 Sat by Pulse Oximetry: 100 (in RA) - Other Rad CXR X-Ray: Interpreted by Me, Viewed By Me Interpretation: Accession No. : [id number]. Patient Name / ID : ALBARO GAMEZ / [id number]. Exam Date : 01/25/2019 15:13:29 ( Approved ). Study Comment : Sex / Age : F / 68Y. Creator : Anabela Hagen MD. Dictator : Anabela Hagen MD. Dining Room Coordinator : Field Research Associate : Anabela Hagen MD. Approver2 : Report Date : 01/25/2019 15:34:35. My Comment : . Date of service: 01/25/2019. PROCEDURE: CHEST RADIOGRAPH, 1 VIEW. HISTORY: SOB. COMPARISON: 12/10/2018. FINDINGS: LUNGS: The lungs are well inflated and clear. Biapical pleural thickening. Mild chronic changes in the lungs. No focal consolidation. PLEURA: No pneumothorax or pleural effusion. CARDIOVASCULAR: The heart is normal in size. No aortic atherosclerotic calcifications present. OSSEOUS STRUCTURES: Within normal limits for the patient's age. VISUALIZED UPPER ABDOMEN: Normal. OTHER FINDINGS: None. IMPRESSION: No active pulmonary disease. Reevaluation Time: 17:35 Reassessment Condition: Improved (Lungs clean but continues to have a wet bronchial cough) Medical Decision Making Medical Decision Making: Impression: 68 year old female with cough and sore throat Plan: CXR ordered for patient Patient given Albuterol INH, Duoneb INH, and Solu-medrol IVP CMP and CBC ordered for patient Disposition Counseled Patient/Family Regarding: Studies Performed, Diagnosis, Need For Followup, Rx Given - Disposition Referrals: Milton Aranda MD [Staff Provider] - Disposition: HOME/ ROUTINE Disposition Time: 17:36 Condition: IMPROVED Prescriptions: Benzonatate [Tessalon Perles] 100 mg PO TID PRN #30 sgl PRN Reason: Cough Methylprednisolone [Medrol Dose Pack (21 tabs)] 4 mg PO DAILY #21 mg Instructions: Exacerbation of COPD Forms: [facility] (Wolof) - Clinical Impression Clinical Impression: COPD (chronic obstructive pulmonary disease) - Scribe Statement The provider has reviewed the documentation as recorded by the Scribe (Ana Rodriguez) All medical record entries made by the Scribe were at my direction and personally dictated by me. I have reviewed the chart and agree that the record accurately reflects my personal performance of the history, physical exam, medical decision making, and the department course for this patient. I have also personally directed, reviewed, and agree with the discharge instructions and disposition.
[2019-01-25 15:31] VITALS: RESP 19
--- NOTE | 2019-01-25 15:38 | RAD ---
Date of service: 01/25/2019 PROCEDURE: CHEST RADIOGRAPH, 1 VIEW HISTORY: SOB COMPARISON: 12/10/2018. FINDINGS: LUNGS: The lungs are well inflated and clear. Biapical pleural thickening. Mild chronic changes in the lungs. No focal consolidation. PLEURA: No pneumothorax or pleural effusion. CARDIOVASCULAR: The heart is normal in size. No aortic atherosclerotic calcifications present. OSSEOUS STRUCTURES: Within normal limits for the patient's age. VISUALIZED UPPER ABDOMEN: Normal. OTHER FINDINGS: None. IMPRESSION: No active pulmonary disease.
[2019-01-25] MEDS ORDERED: Albuterol 0.083% Inhal Sol (2.5 mg/3 mL) UD ONE (15:50)
[2019-01-25] MEDS ORDERED: Albuterol-Ipratrop 3 mg / 0.5 (3 ml) UD ONE (15:50)
[2019-01-25 15:59] LABS: BASO # 0.1 K/uL (0.0-0.2); BASO % 1.3 % (0.0-2.0); EOS # 0.1 K/uL (0.0-0.7); EOS % 1.7 % (0.0-4.0); HEMOGLOBIN 13.1 g/dL (11.0-16.0); LYMPH # 1.7 K/uL (1.0-4.3); LYMPH % 22.6 % (20.0-40.0); MEAN CELL VOLUME 89.5 fL (81.0-99.0); MEAN CORPUSCULAR HEMOGLOBIN 27.9 pg (27.0-31.0); MEAN CORPUSCULAR HGB CONC 31.2 g/dL (33.0-37.0); MEAN PLATELET VOLUME 9.2 fL (7.2-11.7); MONO # 0.4 K/uL (0.0-0.8); MONO % 5.4 % (0.0-10.0); NEUT # 5.2 K/uL (1.8-7.0); NRBC % 0.1 % (0.0-2.0); RBC 4.68 Mil/uL (3.80-5.20); RED CELL DISTRIBUTION WIDTH 16.8 % (11.5-14.5); WHITE BLOOD COUNT 7.6 K/uL (4.8-10.8)
[2019-01-25 16:20] LABS: BLOOD UREA NITROGEN 13 mg/dL (7-17); GFR NON-AFRICAN AMERICAN > 60
[2019-01-25 16:25] LABS: ALBUMIN 4.5 g/dL (3.5-5.0); ALT/SGPT 35 U/L (9-52); AST/SGOT 60 U/L (14-36)
[2019-01-25 18:51] VITALS: BP 127/85; PULSE 91; TEMP 98; O2SAT 95
== END 2019-01-25 20:15 | disposition home or self-care (01) ==
LOC: C.ER 14:46
DX: J44.9 Chronic obstructive pulmonary disease, unspecified (principal); Z87.891 Personal history of nicotine dependence
CPT/HCPCS: 71045; 80053; 85025; 94150; 94640; 96374; 99284; J2930

== ENCOUNTER 2019-03-15 16:44 | Emergency (ER) | payer MEDICARE, OTHER ==
[2019-03-15 16:44] VITALS: BMI 21.2
[2019-03-15 17:06] VITALS: O2SAT 100
--- NOTE | 2019-03-15 18:07 | C.PDOC ---
History Of Present Illness 68 year old female presents to the ED complaining of bilateral leg pain and burning sensation. Reports she used to take Lasix 10mg but her PMD increased it to 40mg daily. States she ran out of medication and her insurance does not approve refill at this time. Reports she also takes Neurontin for neuropathy but it is not helping with the burning. Denies any injury. Notes she is able to ambulate with the walker. Also complains of chest pain for several weeks. Denies any shortness of breath, dizziness, nausea, palpitations, or vomiting. In addition, she states she has not been able to check her sugar because she needs a new accu-chek machine and her PMD has not been able to provide it. Denies any other physical complaints. Time Seen by Provider: 03/15/19 17:19 Chief Complaint (Nursing): Lower Extremity Problem/Injury History Per: Patient History/Exam Limitations: no limitations Onset/Duration Of Symptoms: Days Current Symptoms Are (Timing): Still Present Past Medical History Reviewed: Historical Data, Nursing Documentation, Vital Signs Vital Signs: Last Vital Signs Temp 98.1 F 03/15/19 17:05 Pulse 72 03/15/19 17:05 Resp 18 03/15/19 17:05 BP 144/85 03/15/19 17:05 Pulse Ox 100 03/15/19 17:05 - Medical History PMH: Arthritis, CHF, COPD, Diabetes, Fractures (vertabral compression fracture), Hepatitis (C), HTN Denies: Chronic Kidney Disease Surgical History: Tonsillectomy - [facility] Procedures EXCISION OF DUODENUM, ENDO, DIAGN (02/19/19) EXCISION OF STOMACH, ENDO, DIAGN (02/19/19) Family History: States: No Known Family Hx - Social History Hx Tobacco Use: Yes (Light smoker <10 cigarettes daily) Hx Alcohol Use: Yes Hx Substance Use: No - Immunization History Hx Tetanus Toxoid Vaccination: Yes Hx Influenza Vaccination: Yes Hx Pneumococcal Vaccination: Yes Review Of Systems Constitutional: Negative for: Fever, Chills Cardiovascular: Positive for: Chest Pain. Negative for: Palpitations Respiratory: Negative for: Cough, Shortness of Breath Gastrointestinal: Negative for: Nausea, Vomiting, Abdominal Pain, Diarrhea Skin: Positive for: Other (burning sensation in legs ) Neurological: Negative for: Headache, Dizziness Physical Exam - Physical Exam Appears: Non-toxic, No Acute Distress Skin: Warm, Dry, No Rash Head: Normacephalic Eye(s): bilateral: Normal Inspection Nose: Normal Oral Mucosa: Moist Neck: Supple Chest: Symmetrical Cardiovascular: Rhythm Regular Respiratory: Normal Breath Sounds, No Rales, No Rhonchi, No Wheezing Gastrointestinal/Abdominal: Soft, No Tenderness, No Guarding, No Rebound Extremity: No Tenderness, No Pedal Edema, No Swelling, No Other (erythema ) Extremity: Bilateral: Atraumatic, No Pedal Edema, Normal Color And Temperature, Normal ROM Neurological/Psych: Oriented x3, Normal Speech Gait: With Assistance (walker) ED Course And Treatment O2 Sat by Pulse Oximetry: 100 (RA) Pulse Ox Interpretation: Normal Medical Decision Making Medical Decision Making: Plan - EKG - Glucose POC EKG results 17:01 Sinus tachycardic, 108 bpm, normal axis, normal interval, no ST elevations Patient complains of longstanding chest pain. She has had multiple visits to this ED and to the ED in [place] for chest pain. Has two negative troponins for the past week. No ST elevation on EKG today. No swelling or pitting edema noted to lower extremities. Patient advised to follow up with PMD for refill of diuretics. Continue taking gabapentin as patient reports leg burning. Fingerstick done, glucose 167. Again advised outpatient followup for acquiring new accucheck machine. Patient stable for discharge home. Disposition - Disposition Disposition: HOME/ ROUTINE Disposition Time: 18:20 Condition: STABLE Additional Instructions: FRANCO IRVIN, thank you for letting us take care of you today. Your provider was Loly Krause MD and you were treated for LEG PAIN. The emergency medical care you received today was directed at your acute symptoms. If you were prescribed any medication, please fill it and take as directed. It may take several days for your symptoms to resolve. Return to the Emergency Department if your symptoms worsen, do not improve, or if you have any other problems. Please contact your doctor or call one of the physicians/clinics you have been referred to that are listed on the Patient Visit Information form that is included in your discharge packet. Bring any paperwork you were given at discharge with you along with any medications you are taking to your follow up visit. Our treatment cannot replace ongoing medical care by a primary care provider outside of the emergency department. Thank you for allowing the [facility] team to be part of your care today. If you had an X-Ray or CT scan: A Radiologist will review the ED reading if any change in treatment is needed we will contact you. If you had a blood, urine, or wound culture: It will take several days for the results, if any change in treatment is needed we will contact you. If you had an STI test: It will take 48 hours for the results. Please call after 1 week if you have not heard back. Instructions: Chest Pain (DC), Peripheral Neuropathy (DC) Forms: [employer] (Maori) - Clinical Impression Clinical Impression: Chest pain, Leg pain, bilateral - Scribe Statement The provider has reviewed the documentation as recorded by the Renita Higgins All medical record entries made by the Renita were at my direction and p ersonally dictated by me. I have reviewed the chart and agree that the record accurately reflects my personal performance of the history, physical exam, medical decision making, and the department course for this patient. I have also personally directed, reviewed, and agree with the discharge instructions and disposition.
[2019-03-15 18:20] VITALS: BP 147/92; PULSE 100; RESP 20; TEMP 99.1
--- NOTE | 2019-03-16 19:38 | CARD ---
APPROVED REPORT Date of service: 03/15/2019 EKG Measurement Heart [id number] <Conclusion> Sinus tachycardia Possible Left atrial enlargement Nonspecific T wave abnormality Abnormal ECG
== END 2019-03-15 22:11 | disposition home or self-care (01) ==
LOC: C.ER 16:44
DX: M79.605 Pain in left leg (principal); M79.604 Pain in right leg; R07.9 Chest pain, unspecified

== ENCOUNTER 2019-03-25 21:40 | Emergency (ER) | payer MEDICARE, OTHER ==
[2019-03-25 21:41] VITALS: BMI 21.2
--- NOTE | 2019-03-25 22:22 | C.PDOC ---
History Of Present Illness 68-year-old female presents to the ED for evaluation of chronic, vague right lower leg pains. Review of prior records shows that patient was evaluated at [facility] yesterday for complains of left wrist discomfort. Patient was given NOEL wrap and sling and prescribed Keflex prior to discharge. Patient does not recall this visit, and thinks her most recent ED visit was two weeks ago. Patient denies recent trauma/injuries. Time Seen by Provider: 03/25/19 21:52 Chief Complaint (Nursing): Abdominal Pain History Per: Patient History/Exam Limitations: no limitations Onset/Duration Of Symptoms: Days Current Symptoms Are (Timing): Still Present Past Medical History Reviewed: Historical Data, Nursing Documentation, Vital Signs Vital Signs: Last Vital Signs Temp 97.9 F 03/25/19 21:49 Pulse 110 H 03/25/19 21:49 Resp 24 03/25/19 21:49 BP 136/94 H 03/25/19 21:49 Pulse Ox 99 03/25/19 21:49 Primary Care Provider: Milton Ambrosio - Medical History PMH: Arthritis, CHF, COPD, Diabetes, Fractures (vertabral compression fracture), Hepatitis (C), HTN Denies: Chronic Kidney Disease Surgical History: Tonsillectomy - [facility] Procedures EXCISION OF DUODENUM, ENDO, DIAGN (02/19/19) EXCISION OF STOMACH, ENDO, DIAGN (02/19/19) Family History: States: Unknown Family Hx - Social History Hx Tobacco Use: Yes (Light smoker <10 cigarettes daily) Hx Alcohol Use: Yes Hx Substance Use: No - Immunization History Hx Tetanus Toxoid Vaccination: Yes Hx Influenza Vaccination: Yes Hx Pneumococcal Vaccination: Yes Review Of Systems Musculoskeletal: Positive for: Leg Pain (right, lower ) Physical Exam - Physical Exam Appears: Non-toxic, No Acute Distress, Other (thin, argumentative, confrontational, foul-mouthed) Skin: Normal Color, Warm, Dry Head: Atraumatic, Normacephalic Oral Mucosa: Moist Neck: Supple Chest: Symmetrical, No Deformity, No Tenderness Cardiovascular: Rhythm Regular, No Murmur Respiratory: Normal Breath Sounds, No Rales, No Rhonchi, No Wheezing Extremity: Normal ROM, No Tenderness, Capillary Refill (less than 2 seconds ), No Deformity, No Swelling Neurological/Psych: Oriented x3, Normal Speech, Normal Cognition ED Course And Treatment O2 Sat by Pulse Oximetry: 99 (on RA ) Pulse Ox Interpretation: Normal Medical Decision Making Medical Decision Making: ? vomiting but did not mention to EMS nor triage nurse benign exam Edwin given Seen @ [facility] ED yesterday for ? mild L wrist swelling started Keflex taking w god compliance low susp of GI intol of Keflex ? Dementia: Seen regularly in ED for vague complaints 7 visits in [facility] and today is 2nd for May poor insight of recent visits lives alone ? SW outreach? Disposition Doctor Will See Patient In The: Office Counseled Patient/Family Regarding: Studies Performed, Diagnosis - Disposition Referrals: Milton Ambrosio MD [Staff Provider] - Disposition: HOME/ ROUTINE Disposition Time: 22:22 Condition: GOOD Additional Instructions: continue your normal routine Follow-up with Dr. Ambrosio on Wednesday as needed. Instructions: Nausea and Vomiting, Adult, Chronic Pain Forms: [facility] (Thai) - Clinical Impression Clinical Impression: Leg pain - Scribe Statement The provider has reviewed the documentation as recorded by the Scribe (Natividad Haines) Provider Attestation: All medical record entries made by the Scribe were at my direction and personally dictated by me. I have reviewed the chart and agree that the record accurately reflects my personal performance of the history, physical exam, medical decision making, and the department course for this patient. I have also personally directed, reviewed, and agree with the discharge instructions and disposition.
[2019-03-25 22:36] VITALS: BP 136/90; PULSE 106; RESP 20; TEMP 98.1
[2019-03-26 02:02] VITALS: O2SAT 99
== END 2019-03-25 22:50 | disposition home or self-care (01) ==
LOC: C.ER 21:40
DX: M79.661 Pain in right lower leg (principal)

== ENCOUNTER 2019-04-06 01:59 | Emergency (ER) | payer MEDICARE, OTHER ==
[2019-04-06 01:59] VITALS: BMI 21.2
--- NOTE | 2019-04-06 02:53 | C.PDOC ---
History Of Present Illness 68 year old female presents with left sided headache for the past 2 days described as a throbbing pain. Patient states she usually gets this type of headache when her pressure is high but reports being compliant with her blood pressure medications. She has tried taking tramadol and motrin with no relief. Denies fever, weakness or neck pain. Time Seen by Provider: 04/06/19 02:19 Chief Complaint (Nursing): Headache History Per: Patient History/Exam Limitations: no limitations Onset/Duration Of Symptoms: Days Current Symptoms Are (Timing): Still Present Quality: Other (Throbbing) Associated Symptoms: denies: Other (Weakness, neck pain, fever) Recent travel outside of the [place]: No Past Medical History Reviewed: Historical Data, Nursing Documentation, Vital Signs Vital Signs: Last Vital Signs Temp 98.6 F 04/06/19 02:10 Pulse 100 H 04/06/19 02:10 Resp 20 04/06/19 02:10 BP 143/96 H 04/06/19 02:10 Pulse Ox 100 04/06/19 02:10 Primary Care Provider: Milton Aranda - Medical History PMH: Arthritis, CHF, COPD, Diabetes, Fractures (vertebral compression fracture), Hepatitis (C), HTN Denies: Chronic Kidney Disease Surgical History: Tonsillectomy - [facility] Procedures EXCISION OF DUODENUM, ENDO, DIAGN (02/19/19) EXCISION OF STOMACH, ENDO, DIAGN (02/19/19) Family History: States: Unknown Family Hx - Social History Hx Tobacco Use: Yes (Light smoker <10 cigarettes daily) Hx Alcohol Use: Yes Hx Substance Use: No - Immunization History Hx Tetanus Toxoid Vaccination: Yes Hx Influenza Vaccination: Yes Hx Pneumococcal Vaccination: Yes Review Of Systems Constitutional: Negative for: Fever, Chills Musculoskeletal: Negative for: Neck Pain Neurological: Positive for: Headache. Negative for: Weakness Physical Exam - Physical Exam Appears: Non-toxic, Other (Comfortably sleeping, snoring slightly) Skin: Normal Color, Warm Head: Atraumatic, Normacephalic Eye(s): bilateral: Normal Inspection, PERRL, EOMI Oral Mucosa: Moist Neck: Normal, No Midline Cervical Tenderness, No Paracervical Tenderness, Supple Extremity: Normal ROM (x4) Neurological/Psych: Oriented x3, Normal Speech, Normal Motor, Normal Sensation Gait: Steady ED Course And Treatment O2 Sat by Pulse Oximetry: 100 (Room air) Pulse Ox Interpretation: Normal Progress Note: Fioricet administered. Patient is resting comfortably in no acute distress, vitals are stable, will discharge home with Rx and frame operator advised to follow up with PMD. Disposition - Disposition Disposition Time: 05:37 Condition: STABLE Instructions: Headache, Adult (DC) Forms: [facility] (Italian) - Clinical Impression Clinical Impression: Headache - Scribe Statement The provider has reviewed the documentation as recorded by the Scribe King Hartley All medical record entries made by the Scribe were at my direction and personally dictated by me. I have reviewed the chart and agree that the record accurately reflects my personal performance of the history, physical exam, medical decision making, and the department course for this patient. I have also personally directed, reviewed, and agree with the discharge instructions and disposition.
[2019-04-06] MEDS ORDERED: Apap-Butalbital-Caffeine 325-50-40mg Tab PO STA (03:22)
[2019-04-06] MEDS ORDERED: Apap-Butalbital-Caffeine 325-50-40mg Tab ONE (03:34)
[2019-04-06 05:31] VITALS: BP 126/76; PULSE 99; TEMP 98.4
[2019-04-06 05:38] VITALS: O2SAT 100
[2019-04-06 06:49] VITALS: RESP 18
== END 2019-04-06 06:44 | disposition home or self-care (01) ==
LOC: C.ER 01:59
DX: R51 Headache (principal)

== ENCOUNTER 2019-04-10 21:20 | Emergency (ER) | payer MEDICARE, OTHER ==
[2019-04-10 21:20] VITALS: BMI 21.2
[2019-04-10 21:44] VITALS: BP 156/87; PULSE 102; RESP 18; TEMP 97.8; O2SAT 99
[2019-04-10] MEDS ORDERED: Bacitracin 500 Units/gm Oint Foilpak UD TOP ONE (22:11)
--- NOTE | 2019-04-10 22:52 | C.PDOC ---
History Of Present Illness 68 year old female presents complaining of chronic pain to the right leg. Of note, patient has been seen numerous times for similar. Denies fever or other complaints. Time Seen by Provider: 04/10/19 21:47 Chief Complaint (Nursing): Lower Extremity Problem/Injury History Per: Patient History/Exam Limitations: no limitations Onset/Duration Of Symptoms: Days Current Symptoms Are (Timing): Still Present Recent travel outside of the [place]: No Past Medical History Reviewed: Historical Data, Nursing Documentation, Vital Signs Vital Signs: Last Vital Signs Temp 97.8 F 04/10/19 21:32 Pulse 102 H 04/10/19 21:32 Resp 18 04/10/19 21:32 BP 156/87 H 04/10/19 21:32 Pulse Ox 99 04/10/19 21:32 Primary Care Provider: Tyler Aranda - Medical History PMH: Arthritis, CHF, COPD, Diabetes, Fractures (vertebral compression fracture), Hepatitis (C), HTN Denies: Chronic Kidney Disease Surgical History: Tonsillectomy - [facility] Procedures EXCISION OF DUODENUM, ENDO, DIAGN (02/19/19) EXCISION OF STOMACH, ENDO, DIAGN (02/19/19) Family History: States: Unknown Family Hx - Social History Hx Tobacco Use: Yes (Light smoker <10 cigarettes daily) Hx Alcohol Use: Yes Hx Substance Use: No - Immunization History Hx Tetanus Toxoid Vaccination: Yes Hx Influenza Vaccination: Yes Hx Pneumococcal Vaccination: Yes Review Of Systems Constitutional: Negative for: Fever, Chills Cardiovascular: Negative for: Chest Pain, Palpitations Respiratory: Negative for: Cough, Shortness of Breath Gastrointestinal: Negative for: Nausea, Vomiting Musculoskeletal: Positive for: Leg Pain Neurological: Negative for: Weakness, Numbness Physical Exam - Physical Exam Appears: Non-toxic Skin: Normal Color, Warm Head: Atraumatic, Normacephalic Eye(s): bilateral: Normal Inspection Oral Mucosa: Moist Neck: Normal, Supple Chest: Symmetrical, No Tenderness Cardiovascular: Rhythm Regular Respiratory: Normal Breath Sounds, No Rales, No Rhonchi, No Wheezing Gastrointestinal/Abdominal: Soft, No Tenderness Extremity: Normal ROM (x4) Neurological/Psych: Oriented x3, Normal Speech Gait: Steady ED Course And Treatment O2 Sat by Pulse Oximetry: 99 (room air) Pulse Ox Interpretation: Normal Medical Decision Making Medical Decision Making: Tylenol administered. chronic leg pain seen numerous times in er. no swelling erythmea flucutanfce noted. stable for d.c Disposition - Disposition Referrals: Milton Aranda MD [Primary Care Provider] - Disposition: HOME/ ROUTINE Disposition Time: 22:00 Condition: STABLE Instructions: Correa Splints (DC), Growing Pains Forms: [facility] (Kyrgyz) - Clinical Impression Clinical Impression: Chronic leg pain - Scribe Statement The provider has reviewed the documentation as recorded by the Scribe King Hartley All medical record entries made by the Jenaroibe were at my direction and pe rsonally dictated by me. I have reviewed the chart and agree that the record accurately reflects my personal performance of the history, physical exam, medical decision making, and the department course for this patient. I have also personally directed, reviewed, and agree with the discharge instructions and disposition.
== END 2019-04-10 22:52 | disposition home or self-care (01) ==
LOC: SUPCPDRO 21:20 → C.ER 21:20
DX: G89.29 Other chronic pain (principal); M79.604 Pain in right leg